=== PATIENT | male | born 1935 | race Caucasian/White ===

== ENCOUNTER 2017-11-25 16:24 | Inpatient (IN) | payer MEDICARE, BC, OTHER ==
[2017-11-25] MEDS ORDERED: SODIUM CHLORIDE 0.9% 1,000 ML IV STA (16:52)
--- NOTE | 2017-11-25 17:09 | ED ---
Chest Pain HPI - General Chief Complaint: Chest Pain Stated Complaint: ARRYTHMIA, YOGESH, COUGH Time Seen by Provider: 11/25/17 16:39 Source: patient Mode of arrival: ambulatory Limitations: no limitations - History of Present Illness Initial Comments: 82 years old male presented with the palpitation he said he noticed that his heart rate was 120 at one time then his heart rate dropped to around 60 he does have a history of congestive heart failure, diabetes and hypertension and he added he has neuropathy, please being treated for amyloidosis Maris of the PICC line and on his left upper extremity. He denies any headaches no neck stiffness no chest pain as such she has a palpitation he denies any shortness of breath he denies any pleuritic chest pain he said he said when he takes a very deep breath no abdominal pain. He has been coughing and been coughing up phlegm his cough has gotten worse over the last couple days no frequency urgency dysuria no symptoms of TIA or CVA - Related Data Home Medications Medication Instructions Recorded Confirmed Acetaminophen Tab [Tylenol Tab] 500 mg PO Q6H PRN 11/25/17 11/25/17 Albuterol Inhaler [Ventolin Hfa 2 puff INHALATION RT-QID PRN 11/25/17 11/25/17 Inhaler] Allopurinol [Zyloprim] 300 mg PO DAILY 11/25/17 11/25/17 Aspirin EC [Ecotrin Low Dose] 81 mg PO DAILY 11/25/17 11/25/17 Docusate [Colace] 100 mg PO DAILY PRN 11/25/17 11/25/17 Furosemide [Lasix] 40 mg PO DAILY 11/25/17 11/25/17 Gabapentin [Neurontin] 100 mg PO BID 11/25/17 11/25/17 Insulin Aspart Protam & Aspart See Protocol SQ AC-SUPPER 11/25/17 11/25/17 [NovoLOG MIX 70-30 Flexpen] Ipratropium-Albuterol Nebulize 3 ml INHALATION RT-TID 11/25/17 11/25/17 [Duoneb 0.5 mg-3 mg/3 ml Soln] Lisinopril [Zestril] 2.5 mg PO DAILY 11/25/17 11/25/17 Primacor 1mg/Ml 1 dose IV CONTINUOUS 11/25/17 11/25/17 Spironolactone [Aldactone] 12.5 mg PO DAILY 11/25/17 11/25/17 Tamsulosin HCl [Flomax] 0.4 mg PO DAILY 11/25/17 11/25/17 glipiZIDE [Glucotrol] 5 mg PO AC-BID 11/25/17 11/25/17 metFORMIN HCL [Glucophage] 500 mg PO BID 11/25/17 11/25/17 Allergies Allergy/AdvReac Type Severity Reaction Status Date / Time No Known Allergies Allergy Verified 11/25/17 17:19 Review of Systems ROS Statement: Those systems with pertinent positive or pertinent negative responses have been documented in the HPI. ROS Other: All systems not noted in ROS Statement are negative. 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 History of Any Multi-Drug Resistant Organisms: None Reported Additional Past Surgical History / Comment(s): bilateral foot operation, right elbow , bilateral hand surgeries, cervical infusion Past Psychological History: No Psychological Hx Reported Smoking Status: Former smoker Past Alcohol Use History: None Reported Past Drug Use History: None Reported General Exam - General Exam Comments Initial Comments: General: The patient is awake and alert, in no distress, and does not appear acutely ill. GCS is 15 Skin: Skin is warm and dry and no rashes or lesions are noted. Eye: Pupils are equal, round and reactive to light, extra-ocular movements are intact; there is normal conjunctiva bilaterally. Ears, nose, mouth and throat: There are moist mucous membranes and no oral lesions. Neck: The neck is supple, there is no tenderness or JVD. Cardiovascular: There is fluctuation of heart rate Respiratory: To auscultation bilateral, it was inconclusive every time he took a deep breath that triggered a cough though he is moving good air bilaterally Gastrointestinal: Soft, non-distended, non-tender abdomen without masses or organomegaly noted. There is no rebound or guarding present. Bowel sounds are unremarkable. Back: There is no tenderness to palpation in the midline. There is no obvious deformity. Musculoskeletal: Normal ROM, no tenderness, There is no pedal edema. There is no calf tenderness or swelling. No cords were appreciated. Neurological: CN II-XII intact, Cranial nerves III through XII are intact. There are no obvious motor or sensory deficits. Coordination appears grossly intact. Speech is normal. Psychiatric: Cooperative, appropriate mood & affect, normal judgment. 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 ] Respiratory 18 18 Rate Blood Pressure 118/62 157/94 O2 Sat by Pulse 99 98 Oximetry 11/25/17 18:20 Temperature Pulse Rate 98 Pulse Rate [ Log Chipper Operator ] Respiratory 16 Rate Blood Pressure 119/80 O2 Sat by Pulse 99 Oximetry EKG is normal sinus rhythm ventricular rate is 90 KS interval is 176 QRS duration is 80 QT/QTC 384/469 review of this EKG reveals low-voltage QRS complexes throughout poor progression of the R wave in V1 and V2 and V3 no ST elevation noticed noticed some flattening of the T-wave in the noticed reddening of the T-wave in V5 and V6 Critical Care Time Total Critical Care Time: 45 Critical Care Time: 32 years old male comes in with a palpitation, he noticed his heart rate was fluctuating from 66-120, we did see some fluctuation here as well, we did the cardiopulmonary investigations d-dimer is negative C CBC is unremarkable so his INR compressive metabolic panel is unremarkable creatinine is 1.30 to stop his elevated chest x-ray ruled out any congestive heart failure or any pneumonia he does have a history of congestive heart failure diabetes hypertension amyloidosis considering his multiple comorbidities with an admit him to Dr. Hunt, cardiology be consulted he be admitted as acute coronary syndrome Disposition Clinical Impression: Palpitation, Myocardial infarction Disposition: ADMITTED IP TO THIS HOSP Condition: Good Referrals: Walter Serrano MD [Primary Care Provider] - 1-2 days
[2017-11-25 17:21] LABS: Basophils % (A) 1 %; Eosinophils # (A) 0.4 k/uL (0-0.7); Eosinophils % (A) 5 %; HCT 36.6 % (39.0-53.0); HGB 12.2 gm/dL (13.0-17.5); Lymphocytes # (A) 1.5 k/uL (1.0-4.8); Lymphocytes % (A) 21 %; MCH 32.3 pg (25.0-35.0); MCHC 33.3 g/dL (31.0-37.0); MCV 96.9 fL (80.0-100.0); Mean Platelet Volume 7.5; Monocytes # (A) 0.6 k/uL (0-1.0); Monocytes % (A) 8 %; Neutrophils # (A) 4.5 k/uL (1.3-7.7); Neutrophils % (A) 63 %; Platelet Count 259 k/uL (150-450); RBC 3.78 m/uL (4.30-5.90); RDW 13.4 % (11.5-15.5); WBC 7.1 k/uL (3.8-10.6)
[2017-11-25 17:25] LABS: Albumin 3.9 g/dL (3.5-5.0); Calcium 9.4 mg/dL (8.4-10.2); Potassium 4.6 mmol/L (3.5-5.1); Total Protein 7.2 g/dL (6.3-8.2)
[2017-11-25 17:30] LABS: D-Dimer 0.47 mg/L FEU (<0.60); INR 1.1 (<1.2); Partial Thromboplastin Time 26.3 sec (22.0-30.0); Prothrombin Time 10.7 sec (9.0-12.0)
--- NOTE | 2017-11-25 17:44 | XR ---
EXAMINATION TYPE: XR chest 2V DATE OF EXAM: 11/25/2017 COMPARISON: NONE HISTORY: Chest pain, abnormal heart rate and cough TECHNIQUE: Frontal and lateral views of the chest are obtained on 3 images. FINDINGS: There is no focal air space opacity, pleural effusion, or pneumothorax seen. The cardiac silhouette size is within normal limits. The osseous structures are intact. Left-sided PICC line is in place. Distal tip courses to the level of the superior vena cava. There are overlying cardiac ovidio ds. IMPRESSION: No acute cardiopulmonary process.
[2017-11-25 17:49] LABS: Creatine Kinase MB 1.5 ng/mL (0.0-2.4)
[2017-11-25 18:10] LABS: Troponin I 0.131 ng/mL (0.000-0.034)
[2017-11-25] MEDS ORDERED: MORPHINE SULFATE 4 MG/ML SYRINGE IVP PRN (18:34)
[2017-11-25] MEDS ORDERED: NITROGLYCERIN SL TABS 0.4 MG TAB SUBLINGUAL PRN (18:34)
[2017-11-25] MEDS ORDERED: DOCUSATE 100 MG CAP PO PRN (18:42)
[2017-11-25] MEDS ORDERED: ACETAMINOPHEN TAB 500 MG TAB PO PRN (18:42)
[2017-11-25] MEDS ORDERED: ALBUTEROL NEBULIZED 2.5 MG/3 ML INHALATION PRN (18:42)
[2017-11-25] MEDS ORDERED: PRIMACOR IV SCH (18:45)
[2017-11-25] MEDS ORDERED: MILRINONE-D5W PMX 20 MG in DEXTROSE/WATER 1 100ML.BAG IV ONE (19:00)
[2017-11-25] MEDS: MILRINONE IV SCH (20:11)
[2017-11-25] MEDS: GABAPENTIN 100 MG CAP PO SCH (20:12)
[2017-11-25] MEDS: IPRATROPIUM-ALBUTEROL 3 ML NEB INHALATION SCH (20:18)
[2017-11-25 20:51] LABS: Glucose,Whole Blood 109 mg/dL (75-99)
[2017-11-25 20:55] VITALS: BMI 24.9
[2017-11-25 23:35] LABS: Creatine Kinase MB 1.5 ng/mL (0.0-2.4)
[2017-11-25 23:36] LABS: Troponin I 0.15 ng/mL (0.000-0.034)
[2017-11-26 06:21] LABS: Calcium 9.4 mg/dL (8.4-10.2); Potassium 4.5 mmol/L (3.5-5.1)
[2017-11-26 06:38] LABS: Creatine Kinase MB 1.4 ng/mL (0.0-2.4)
[2017-11-26 06:41] LABS: Glucose,Whole Blood 90 mg/dL (75-99)
[2017-11-26] MEDS: metFORMIN 500 MG TAB PO SCH ×2 (06:41→16:17)
[2017-11-26] MEDS: glipiZIDE 5 MG TAB PO SCH ×2 (06:41→16:17)
[2017-11-26 06:42] LABS: Troponin I 0.153 ng/mL (0.000-0.034)
[2017-11-26] MEDS ORDERED: LEVOFLOXACIN 500 MG TAB PO STA (08:24)
--- NOTE | 2017-11-26 08:33 | P.HPIM ---
History of Present Illness Chief complaint Cardiac palpitations and irregular heartbeat and tachycardia. History of present illness Patient presented to emergency room yesterday evening with complaints as stated above. Patient has restrictive amyloidosis cardiomyopathy and has been followed by cardiology here and at [facility] heart failure center. The patient has been receiving outpatient IV therapy with Milnirone. Apparently he had a previous PICC line in place. According to patient his dose was mildly decreased because of his weight loss recently. Yesterday he noted increasing and decreasing heart rate. Monitor here is apparently showing episodes of ventricular tachycardia according to staff. The patient denies any chest pain. He does have shortness of breath with exertion but this has overall improved with his chronic care. He also has chronic kidney disease stage III. He has had some cough with discolored phlegm production. There is a history of tobacco use disorder and COPD. Past medical history As stated above with amyloid infiltrative disease of the heart. Resulting in a chronic diastolic congestive heart failure treated with outpatient IV medication. Chronic kidney disease stage III Tobacco use disorder and COPD Hypertension Type 2 diabetes History of gout. Cindy osteoarthritis Diabetic neuropathy Benign prostatic hypertrophy Previous surgeries include bilateral feet operations, right elbow. Bilateral hand surgeries and cervical neck fusion No known ALLERGIES Home medications Acetaminophen 500 mg every 6 hours if needed for pain Albuterol 2 inhalations 4 times a day for shortness of breath Allopurinol 300 mg daily Aspirin 81 mg daily Colace 100 mg daily if needed Lasix 40 mg daily Insulin 70/30 roughly 10-15 units before breakfast and supper. Patient often adjusts his own insulin at home. Zestril 2.5 daily Aldactone 12.5 mg daily Flomax 0.4 daily Glucotrol 5 mg twice a day Metformin 500 mg twice a day Milnirone intravenously per [facility] congestive heart failure center, dosage dependent upon patient's weight and apparent renal function. Review of systems As mentioned in the history of present illness. No fever or chills. No headaches. No nausea or vomiting. No urinary or bowel symptoms. No unusual edema. No skin rashes. Family history of positive for coronary artery disease and diabetes Social history Patient has quit smoking. No history of any excessive alcohol intake. He lives locally with his in the area.. Vital signs reveal temperature 98.3 with a pulse now 90 7. had been up to 115 earlier. Respirations 18 and blood pressure 104/60. Head and neck exam unremarkable. Extraocular movements intact. Neck is supple. Lungs are generally clear although diminished. Heart tones are irregular but rate is controlled. No marked murmurs or rubs appreciated. Abdomen is soft and nontender. Rectal and scrotal exam deferred. No unusual edema. He is alert and oriented. Cranial nerves are intact. No focal weakness noted. Laboratory White count was 7.1 with a hemoglobin 12.2 and a platelet count of 259. INR was 1.1. D-dimer was 0.47. Electrolytes for the most part unremarkable although sodium is mildly low this morning at 136. BUN is 36 with a creatinine of 1.2 given him a GFR of 64. Blood sugar 97 this morning Troponin values have been mildly elevated from 0.131 up to 0.153. A chest x-ray showed no acute pulmonary process. Initial EKG reveals a sinus rhythm with low voltage and possible old septal infarct. Impressions 1. Cardiac arrhythmia with the palpitations while patient is on IV milnirone for his restrictive chronic diastolic congestive heart failure. 2. Exacerbation of COPD with bronchitis. 3. Chronic kidney disease stage III 4. Hypertension 5. Other past medical history as listed above. Impressions and plans At this time patient is being monitored. Cardiology consult to evaluate patient's arrhythmia and need for further intervention or treatment. Sputum to be sent for culture and Gram stain and antibiotic in the form of Levaquin added today. Further recommendations and treatment pending clinical response and results of above as discussed with patient and nursing staff this morning. 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 History of Any Multi-Drug Resistant Organisms: None Reported Additional Past Surgical History / Comment(s): bilateral foot operation, right elbow , bilateral hand surgeries, cervical fusion Past Psychological History: No Psychological Hx Reported Smoking Status: Former smoker Past Alcohol Use History: None Reported Past Drug Use History: None Reported Medications and Allergies Home Medications Medication Instructions Recorded Confirmed Type Acetaminophen Tab [Tylenol Tab] 500 mg PO Q6H PRN 11/25/17 11/25/17 History Albuterol Inhaler [Ventolin Hfa 2 puff INHALATION RT-QID PRN 11/25/17 11/25/17 History Inhaler] Allopurinol [Zyloprim] 300 mg PO DAILY 11/25/17 11/25/17 History Aspirin EC [Ecotrin Low Dose] 81 mg PO DAILY 11/25/17 11/25/17 History Docusate [Colace] 100 mg PO DAILY PRN 11/25/17 11/25/17 History Furosemide [Lasix] 40 mg PO DAILY 11/25/17 11/25/17 History Gabapentin [Neurontin] 100 mg PO BID 11/25/17 11/25/17 History Insulin Aspart Protam & Aspart See Protocol SQ AC-SUPPER 11/25/17 11/25/17 History [NovoLOG MIX 70-30 Flexpen] Ipratropium-Albuterol Nebulize 3 ml INHALATION RT-TID 11/25/17 11/25/17 History [Duoneb 0.5 mg-3 mg/3 ml Soln] Lisinopril [Zestril] 2.5 mg PO DAILY 11/25/17 11/25/17 History Primacor 1mg/Ml 1 dose IV CONTINUOUS 11/25/17 11/25/17 History Spironolactone [Aldactone] 12.5 mg PO DAILY 11/25/17 11/25/17 History Tamsulosin HCl [Flomax] 0.4 mg PO DAILY 11/25/17 11/25/17 History glipiZIDE [Glucotrol] 5 mg PO AC-BID 11/25/17 11/25/17 History metFORMIN HCL [Glucophage] 500 mg PO BID 11/25/17 11/25/17 History Allergies Allergy/AdvReac Type Severity Reaction Status Date / Time No Known Allergies Allergy Verified 11/25/17 17:19 Physical Exam Vitals: Vital Signs Temp Pulse Pulse Pulse Resp BP BP 11/26/17 03:00 98.3 F 97 18 104/60 11/25/17 23:30 97.8 F 115 H 18 107/63 11/25/17 20:45 97.7 F 94 18 112/71 11/25/17 20:25 112 H 11/25/17 20:18 112 H 11/25/17 19:30 94 18 11/25/17 18:20 98 16 119/80 11/25/17 17:15 116 H 18 157/94 11/25/17 17:13 111 H 11/25/17 16:28 98.0 F 100 18 118/62 Pulse Ox 11/26/17 03:00 98 03/08/18 23:30 96 11/25/17 20:45 98 11/25/17 20:25 11/25/17 20:18 11/25/17 19:30 11/25/17 18:20 99 11/25/17 17:15 98 11/25/17 17:13 11/25/17 16:28 99 Intake and Output 11/25/17 11/26/17 11/26/17 22:59 06:59 14:59 Intake Total 615 350 Output Total 275 275 Balance 340 75 Intake: Intake, IV Titration 75 350 Amount Sodium Chloride 0.9% 1, 75 350 000 ml @ 75 mls/hr IV . [id number] STA Rx#:[id number] Oral 540 Output: Urine 275 275 Other: Voiding Method Toilet Toilet Urinal Urinal Weight 81.102 kg 76.1 kg Results CBC & Chem 7: 11/25/17 17:06 11/26/17 05:18 Labs: Abnormal Lab Results - Last 24 Hours (Table) 11/25/17 11/25/17 11/25/17 Range/Units 17:06 17:06 17:06 RBC 3.78 L (4.30-5.90) m/uL Hgb 12.2 L (13.0-17.5) gm/dL Hct 36.6 L (39.0-53.0) % Sodium (137-145) mmol/L BUN 39 H (9-20) mg/dL Creatinine 1.30 H (0.66-1.25) mg/dL Glucose 119 H (74-99) mg/dL POC Glucose (mg/dL) (75-99) mg/dL Alkaline Phosphatase 135 H (38-126) U/L Troponin I 0.131 H* (0.000-0.034) ng/mL 11/25/17 11/25/17 11/26/17 Range/Units 20:47 22:34 05:18 RBC (4.30-5.90) m/uL Hgb (13.0-17.5) gm/dL Hct (39.0-53.0) % Sodium (137-145) mmol/L BUN (9-20) mg/dL Creatinine (0.66-1.25) mg/dL Glucose (74-99) mg/dL POC Glucose (mg/dL) 109 H (75-99) mg/dL Alkaline Phosphatase (38-126) U/L Troponin I 0.150 H* 0.153 H* (0.000-0.034) ng/mL 11/26/17 Range/Units 05:18 RBC (4.30-5.90) m/uL Hgb (13.0-17.5) gm/dL Hct (39.0-53.0) % Sodium 136 L (137-145) mmol/L BUN 36 H (9-20) mg/dL Creatinine (0.66-1.25) mg/dL Glucose (74-99) mg/dL POC Glucose (mg/dL) (75-99) mg/dL Alkaline Phosphatase (38-126) U/L Troponin I (0.000-0.034) ng/mL Thrombosis Risk Factor Assmnt - Choose All That Apply Any of the Below Risk Factors Present?: Yes Each Factor Represents 1 point: Abnormal pulmonary function (COPD) Other Risk Factors: Yes Each Risk Factor Represents 3 Points: Age 75 years or older Other congenital or acquired thrombophilia - If yes, enter type in comment: No Thrombosis Risk Factor Assessment Total Risk Factor Score: 4 Thrombosis Risk Factor Assessment Level: Moderate Risk
[2017-11-26] MEDS: IPRATROPIUM-ALBUTEROL 3 ML NEB INHALATION SCH ×3 (09:10→20:54)
[2017-11-26] MEDS ORDERED: DEXTROSE 5% IN WATER 100 ML with AMIODARONE 150 MG IV ONE (09:46)
[2017-11-26] MEDS: LISINOPRIL 2.5 MG TAB PO SCH (09:48)
[2017-11-26] MEDS: ALLOPURINOL 300 MG TAB PO SCH (09:48)
[2017-11-26] MEDS: FUROSEMIDE 40 MG TAB PO SCH (09:48)
[2017-11-26] MEDS: ASPIRIN 325 MG TAB PO SCH (09:49)
[2017-11-26] MEDS: GABAPENTIN 100 MG CAP PO SCH ×2 (09:49→21:30)
[2017-11-26] MEDS: TAMSULOSIN 0.4 MG CAP.ER.24H PO SCH (09:49)
[2017-11-26] MEDS: SPIRONOLACTONE 25 MG TAB PO SCH (09:49)
--- NOTE | 2017-11-26 10:17 | CONS ---
CONSULTATION Blair Jacob is a mutual patient of Dr. Serrano and myself, who has a history of cardiac amyloidosis, end-stage, severe restrictive cardiomyopathy on home milrinone therapy that was prescribed by the Heart failure group Dr. Jessica Silveira at [facility]. Yesterday he was complaining of recurrent palpitations and came to the emergency room. Telemetry shows episodes of nonsustained ventricular tachycardia. Given his underlying cardiomyopathy and the fact that he is on Milrinone, this is an expected phenomena. PAST MEDICAL HISTORY: Amyloidosis with restrictive cardiomyopathy and severe heart failure on home Milrinone therapy, stage 3 chronic kidney disease. History of tobacco use, hypertension, type 2 diabetes, recent stress test which did not show any evidence for ischemia. Past surgeries include orthopedic surgeries. Medication list was reviewed and is documented in the chart. From a heart failure standpoint he showed significant improvement in his quality of life on Milrinone. REVIEW OF SYSTEMS: No fever, chills, or rigors. No cough or expectoration. No nausea, vomiting, diarrhea, hematuria, dysuria. No strokes or seizures. No skin lesions or musculoskeletal complaints. SOCIAL HISTORY: He was a smoker in the past. EXAMINATION: On examination his vitals are stable. He is afebrile 97.8 degree Fahrenheit, pulse rate in the 60s and 70s, blood pressure 107/63 mmHg. Neck examination is normal. No JVD. No thyromegaly. No carotid bruits. HEART: Sounds S1, S2 soft. Breath sounds are clear. No rhonchi, no crackles. He is lying flat in bed. LABS: Reviewed. Hemoglobin is 12.2. Electrolytes are normal. BUN 36, creatinine 1.2. Troponins are borderline 0.1, 0.1 and 0.1. LDL is 55. IMPRESSION: 1. End-stage cardiomyopathy, cardiac amyloidosis, restrictive cardiomyopathy. 2. End-stage heart failure. 3. Being treated with IV Milrinone as home therapy as a palliative measure. This has resulted in significant improvement in his symptoms and quality of life. However, this drug increases the risk of ventricular arrhythmias, which is known expected and anticipated. 4. Nonsustained ventricular tachycardia. SUGGEST: Amiodarone IV for 1 day and then switch to 400 mg p.o. daily for 1 month and then reduce to 200 mg daily for 1 month and then reduce further to 100 mg p.o. daily. MMODL / IJN: [id number] /
[2017-11-26] MEDS: AMIODARONE 450 MG in DEXTROSE 5% IN WATER 250 ML IV SCH ×4 (11:19→17:28)
[2017-11-26 12:12] LABS: Glucose,Whole Blood 304 mg/dL (75-99)
[2017-11-26 16:30] LABS: Glucose,Whole Blood 194 mg/dL (75-99)
[2017-11-26] MEDS: INSULIN ASPART 100 UNIT/ML 1 ML 10 ML VIAL SQ SCH ×2 (17:19→21:30)
[2017-11-26 20:52] LABS: Glucose,Whole Blood 166 mg/dL (75-99)
[2017-11-26] MEDS: MILRINONE IV SCH (21:31)
[2017-11-26] MEDS ORDERED: MENTHOL (NICE) LOZENGE MUCOUS MEM PRN (23:39)
[2017-11-27 02:23] LABS: Hemoglobin A1C 6.7 % (4.0-6.0)
[2017-11-27] MEDS: AMIODARONE 450 MG in DEXTROSE 5% IN WATER 250 ML IV SCH ×4 (05:44→09:04)
[2017-11-27 05:57] LABS: Glucose,Whole Blood 149 mg/dL (75-99)
[2017-11-27] MEDS: INSULIN ASPART 100 UNIT/ML 1 ML 10 ML VIAL SQ SCH ×2 (06:56→11:57)
[2017-11-27] MEDS: glipiZIDE 5 MG TAB PO SCH (06:56)
[2017-11-27] MEDS: metFORMIN 500 MG TAB PO SCH (06:56)
[2017-11-27] MEDS: IPRATROPIUM-ALBUTEROL 3 ML NEB INHALATION SCH (08:46)
[2017-11-27] MEDS ORDERED: AMIODARONE 200 MG TAB PO SCH (09:00)
[2017-11-27 09:04] VITALS: BP 101/64; PULSE 84; RESP 17; TEMP 97.4
[2017-11-27] MEDS: FUROSEMIDE 40 MG TAB PO SCH (09:05)
[2017-11-27] MEDS: SPIRONOLACTONE 25 MG TAB PO SCH (09:06)
[2017-11-27] MEDS: GABAPENTIN 100 MG CAP PO SCH (09:06)
[2017-11-27] MEDS: ASPIRIN 325 MG TAB PO SCH (09:06)
[2017-11-27] MEDS: LISINOPRIL 2.5 MG TAB PO SCH (09:06)
[2017-11-27] MEDS: ALLOPURINOL 300 MG TAB PO SCH (09:06)
[2017-11-27] MEDS: TAMSULOSIN 0.4 MG CAP.ER.24H PO SCH (09:06)
--- NOTE | 2017-11-27 09:45 | P.DS ---
Providers Date of admission: 11/25/17 18:34 Attending physician: Walter Serrano Consults: 11/25/17 18:34 Consult Physician Urgent Consulting Provider: Taylor Nair Consult Reason/Comments: Elevated troponin , chest pain Do you want consulting provider notified?: Yes Primary care physician: Walter Serrano The patient is a 82-year-old gentleman who has restrictive cardiomyopathy secondary to amyloidosis and is treated with outpatient IV Milnirrone through [facility] congestive heart failure clinic. Patient noticed irregular heart rates with rates at home being very tachycardic. Patient had some overall weakness and shortness of breath. He presented to the emergency room where workup revealed elevated troponin levels. Also episodes of ventricular tachycardia was noted. Patient was placed on a monitor bed and cardiology consult obtained. Laboratory values reveal white count of 7.1 and hemoglobin 12.2 and a platelet count 259. D-dimer was 0.47. The patient had a mild hyponatremia 136. Creatinine was 1.2. His initial GFR was slightly less than 60 given him great 3 renal failure. Patient did have some mild cough and phlegm production. EKG revealed a slightly regular sinus rhythm. But patient did have episodes of nonsustained ventricular tachycardia on his monitor pattern. The patient was placed on IV amiodarone and switched to oral of 200 mg daily per cardiology. Plans are to discharge home today. Patient will resume his home medications Metformin 500 mg twice a day Glucotrol 5 mg daily Flomax 0.4 mg daily Aldactone 12.5 daily Continue with his IV Primacor per [facility] cardiology Zestril 2.5 daily His respiratory treatments with DuoNeb 4 times a day and when necessary The NovoLog 70-30 approximately 10-15 units daily Neurontin 100 mg 2-3 times a day Lasix 40 mg daily Colace 100 mg daily as needed Aspirin 81 mg daily Allopurinol 3 mg daily Fenlon inhaler 2 puffs 4 times a day as needed for shortness of breath and wheezing Acetaminophen 500 mg every 6 hours when necessary Amiodarone 400 mg daily with taper as ordered by cardiology, 400 mg daily for one month then 200 mg daily for one month then 100 mg daily. Discharge diagnoses 1. Repeat episodes of ventricular tachycardia likely induced by IV Primacor and associated with his underlying amyloid restrictive cardiomyopathy 2. Exacerbation of COPD with bronchitis likely viral in nature. We'll hold antibiotics unless recurrent and worsening symptoms. 3. Chronic kidney disease stage III 4. Hypertension 5. COPD and history of previous tobacco use disorder 6. Type 2 diabetes 7. Diffuse osteoarthritis 8. Diabetic neuropathy 9. BPH 10. Chronic diastolic congestive heart failure. 11. Elevated troponin levels likely related to the episodes of tachycardia and congestive heart failure and not related to ischemic heart disease. Low salt diet along with his diabetic diet to be continued. Activities as tolerated. Follow-up with cardiology Associates and [facility] congestive heart failure clinic. Follow-up with myself over the next 7-10 days or call if any questions concerns or problems. Patient Condition at Discharge: Good Plan - Discharge Summary Discharge Rx Participant: No New Discharge Prescriptions: No Action Acetaminophen Tab [Tylenol Tab] 500 mg PO Q6H PRN PRN Reason: Pain Albuterol Inhaler [Ventolin Hfa Inhaler] 2 puff INHALATION RT-QID PRN PRN Reason: Shortness Of Breath Allopurinol [Zyloprim] 300 mg PO DAILY Aspirin EC [Ecotrin Low Dose] 81 mg PO DAILY Docusate [Colace] 100 mg PO DAILY PRN PRN Reason: Constipation Furosemide [Lasix] 40 mg PO DAILY Gabapentin [Neurontin] 100 mg PO BID glipiZIDE [Glucotrol] 5 mg PO AC-BID Insulin Aspart Protam & Aspart [NovoLOG MIX 70-30 Flexpen] See Protocol SQ AC -SUPPER Ipratropium-Albuterol Nebulize [Duoneb 0.5 mg-3 mg/3 ml Soln] 3 ml INHALATION RT-TID Lisinopril [Zestril] 2.5 mg PO DAILY metFORMIN HCL [Glucophage] 500 mg PO BID Primacor 1mg/Ml 1 dose IV CONTINUOUS Spironolactone [Aldactone] 12.5 mg PO DAILY Tamsulosin HCl [Flomax] 0.4 mg PO DAILY Discharge Medication List Acetaminophen Tab [Tylenol Tab] 500 mg PO Q6H PRN 11/25/17 [History] Albuterol Inhaler [Ventolin Hfa Inhaler] 2 puff INHALATION RT-QID PRN 11/25/17 [ History] Allopurinol [Zyloprim] 300 mg PO DAILY 11/25/17 [History] Aspirin EC [Ecotrin Low Dose] 81 mg PO DAILY 11/25/17 [History] Docusate [Colace] 100 mg PO DAILY PRN 11/25/17 [History] Furosemide [Lasix] 40 mg PO DAILY 11/25/17 [History] Gabapentin [Neurontin] 100 mg PO BID 11/25/17 [History] Insulin Aspart Protam & Aspart [NovoLOG MIX 70-30 Flexpen] See Protocol SQ AC- SUPPER 11/25/17 [History] Ipratropium-Albuterol Nebulize [Duoneb 0.5 mg-3 mg/3 ml Soln] 3 ml INHALATION RT -TID 11/25/17 [History] Lisinopril [Zestril] 2.5 mg PO DAILY 11/25/17 [History] Primacor 1mg/Ml 1 dose IV CONTINUOUS 11/25/17 [History] Spironolactone [Aldactone] 12.5 mg PO DAILY 11/25/17 [History] Tamsulosin HCl [Flomax] 0.4 mg PO DAILY 11/25/17 [History] glipiZIDE [Glucotrol] 5 mg PO AC-BID 11/25/17 [History] metFORMIN HCL [Glucophage] 500 mg PO BID 11/25/17 [History] Follow up Appointment(s)/Referral(s): uJaquin Arredondo MD [STAFF PHYSICIAN] - 3 Weeks Walter Serrano MD [Primary Care Provider] - 1-2 days
[2017-11-27 11:28] LABS: Glucose,Whole Blood 140 mg/dL (75-99)
== END 2017-11-27 13:17 | disposition home or self-care (01) | DRG 309 ==
LOC: EC 16:24 → 6SEL 18:34
PROVIDERS: ADMIT Internal Medicine; ATTEND Internal Medicine
DX: I47.2 Ventricular tachycardia (principal); E85.4 Organ-limited amyloidosis; E11.22 Type 2 diabetes mellitus with diabetic chronic kidney disease; E11.40 Type 2 diabetes mellitus with diabetic neuropathy, unspecified; I43 Cardiomyopathy in diseases classified elsewhere; I13.0 Hypertensive heart and chronic kidney disease with heart failure and stage 1 through stage 4 chronic kidney disease, or unspecified chronic kidney disease; I50.32 Chronic diastolic (congestive) heart failure; J44.0 Chronic obstructive pulmonary disease with (acute) lower respiratory infection; I50.84 End stage heart failure; J20.8 Acute bronchitis due to other specified organisms; M19.91 Primary osteoarthritis, unspecified site; N40.0 Benign prostatic hyperplasia without lower urinary tract symptoms; M10.9 Gout, unspecified; N18.3 Chronic kidney disease, stage 3 (moderate); Z79.82 Long term (current) use of aspirin; Z79.4 Long term (current) use of insulin; Z79.899 Other long term (current) drug therapy; Z87.891 Personal history of nicotine dependence; Z98.1 Arthrodesis status
CPT/HCPCS: 36415; 71046; 80048; 80053; 80061; 82550; 82553; 83036; 83735; 84484; 85025; 85379; 85610; 85730; 87070; 87205; 93005; 94640; 94760; 96360; 96361; 99291

== ENCOUNTER 2017-12-02 10:57 | Emergency (ER) | payer MEDICARE, BC, OTHER ==
[2017-12-02 11:02] VITALS: RESP 18
--- NOTE | 2017-12-02 11:43 | ED ---
General Adult HPI - General Chief complaint: Extremity Problem,Nontraumatic Stated complaint: Ankle pain, Pos Blood clot Time Seen by Provider: 12/02/17 11:00 Source: family, RN notes reviewed Mode of arrival: wheelchair Limitations: no limitations - History of Present Illness Initial comments: This is a 82-year-old male who comes in with complaint of a right medial ankle pain. Patient states started about a week ago and at one point it was extremely sharp just below the medial malleolus. Patient states since then it' s not quite as bad but is constant and makes it difficult for him to sleep. Patient denies any injury patient denies any swelling patient denies any color change. Patient denies any fever chills. Patient denies any calf pain patient denies any swelling to the lower extremity. - Related Data Home Medications Medication Instructions Recorded Confirmed Acetaminophen Tab [Tylenol Tab] 500 mg PO Q6H PRN 11/25/17 12/02/17 Albuterol Inhaler [Ventolin Hfa 2 puff INHALATION RT-QID PRN 11/25/17 12/02/17 Inhaler] Allopurinol [Zyloprim] 300 mg PO DAILY 11/25/17 12/02/17 Aspirin EC [Ecotrin Low Dose] 81 mg PO DAILY 11/25/17 12/02/17 Docusate [Colace] 100 mg PO DAILY PRN 11/25/17 12/02/17 Furosemide [Lasix] 40 mg PO DAILY 11/25/17 12/02/17 Gabapentin [Neurontin] 100 mg PO BID 11/25/17 12/02/17 Insulin Aspart Protam & Aspart See Protocol SQ AC-SUPPER 11/25/17 12/02/17 [NovoLOG MIX 70-30 Flexpen] Ipratropium-Albuterol Nebulize 3 ml INHALATION RT-TID 11/25/17 12/02/17 [Duoneb 0.5 mg-3 mg/3 ml Soln] Lisinopril [Zestril] 2.5 mg PO DAILY 11/25/17 12/02/17 Primacor 1mg/Ml 1 dose IV CONTINUOUS 11/25/17 12/02/17 Spironolactone [Aldactone] 12.5 mg PO DAILY 11/25/17 12/02/17 Tamsulosin HCl [Flomax] 0.4 mg PO DAILY 11/25/17 12/02/17 glipiZIDE [Glucotrol] 5 mg PO AC-BID 11/25/17 12/02/17 metFORMIN HCL [Glucophage] 500 mg PO BID 11/25/17 12/02/17 Allergies Allergy/AdvReac Type Severity Reaction Status Date / Time No Known Allergies Allergy Verified 12/02/17 11:58 Review of Systems ROS Statement: Those systems with pertinent positive or pertinent negative responses have been documented in the HPI. ROS Other: All systems not noted in ROS Statement are negative. 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 Patient is in mild distress. EYES Patient's pupils are equal and round. Extraocular motion is intact SKIN Unremarkable NEURO The patient is alert and oriented 3 PYSCH Patient has normal interpersonal interactions. MUSCULOSKELETAL Just inferior to the medial malleolus on the right is tender to palpation there is no swelling there is no redness. Limitations: no limitations Course Vital Signs 12/02/17 10:58 Temperature 97.4 F L Pulse Rate 91 Respiratory 18 Rate Blood Pressure 114/60 O2 Sat by Pulse 97 Oximetry Medical Decision Making - Lab Data Result diagrams: 12/02/17 11:50 12/02/17 11:50 Lab Results 12/02/17 12/02/17 Range/Units 11:50 11:50 WBC 7.3 (3.8-10.6) k/uL RBC 3.58 L (4.30-5.90) m/uL Hgb 11.7 L (13.0-17.5) gm/dL Hct 34.6 L (39.0-53.0) % MCV 96.6 (80.0-100.0) fL MCH 32.8 (25.0-35.0) pg MCHC 33.9 (31.0-37.0) g/dL RDW 13.4 (11.5-15.5) % Plt Count 228 (150-450) k/uL Neutrophils % 72 % Lymphocytes % 17 % Monocytes % 7 % Eosinophils % 3 % Basophils % 1 % Neutrophils # 5.2 (1.3-7.7) k/uL Lymphocytes # 1.2 (1.0-4.8) k/uL Monocytes # 0.5 (0-1.0) k/uL Eosinophils # 0.2 (0-0.7) k/uL Basophils # 0.0 (0-0.2) k/uL ESR Cancelled Sodium 134 L (137-145) mmol/L Potassium 4.5 (3.5-5.1) mmol/L Chloride 96 L (98-107) mmol/L Carbon Dioxide 26 (22-30) mmol/L Anion Gap 12 mmol/L BUN 47 H (9-20) mg/dL Creatinine 1.48 H (0.66-1.25) mg/dL Est GFR (CKD-EPI)AfAm 50 (>60 ml/min/1.73 sqM) Est GFR (CKD-EPI)NonAf 43 (>60 ml/min/1.73 sqM) Glucose 115 H (74-99) mg/dL Calcium 9.8 (8.4-10.2) mg/dL Total Bilirubin 0.9 (0.2-1.3) mg/dL AST 23 (17-59) U/L ALT 20 L (21-72) U/L Alkaline Phosphatase 142 H (38-126) U/L Total Protein 7.3 (6.3-8.2) g/dL Albumin 3.8 (3.5-5.0) g/dL Disposition Clinical Impression: Ankle pain, right Disposition: HOME SELF-CARE Condition: Good Instructions: Ankle Strain (ED) Referrals: Walter Serrano MD [Primary Care Provider] - 1-2 days Time of Disposition: 13:55
--- NOTE | 2017-12-02 12:13 | XR ---
EXAMINATION TYPE: XR ankle complete RT DATE OF EXAM: 12/02/2017 COMPARISON: NONE HISTORY: Pain FINDINGS: Three views of the ankle demonstrate the ankle mortise to be intact and symmetric. The joint spaces are preserved. The osseous structures are intact. Within the interosseous membrane there is a calci fication overlying this region. Vascular calcifications are noted. IMPRESSION: 1. No definite acute fracture or dislocation, if symptoms persist follow-up study in 7 to 10 days wou ld be suggested.
--- NOTE | 2017-12-02 12:15 | XR ---
EXAMINATION TYPE: XR chest 2V DATE OF EXAM: 12/02/2017 COMPARISON: 11/25/2017 TECHNIQUE: PA and lateral views submitted. HISTORY: Weakness FINDINGS: The lungs are clear and there is no pneumothorax, pleural effusion, or focal pneumonia. Hypertrophi c and degenerative change of the spine. Postsurgical change overlying cervical spine. PICC line noted . Atherosclerotic change aorta. IMPRESSION: 1. No acute process.
[2017-12-02 12:38] LABS: Basophils % (A) 1 %; Eosinophils # (A) 0.2 k/uL (0-0.7); Eosinophils % (A) 3 %; HCT 34.6 % (39.0-53.0); HGB 11.7 gm/dL (13.0-17.5); Lymphocytes # (A) 1.2 k/uL (1.0-4.8); Lymphocytes % (A) 17 %; MCH 32.8 pg (25.0-35.0); MCHC 33.9 g/dL (31.0-37.0); MCV 96.6 fL (80.0-100.0); Mean Platelet Volume 7.3; Monocytes # (A) 0.5 k/uL (0-1.0); Monocytes % (A) 7 %; Neutrophils # (A) 5.2 k/uL (1.3-7.7); Neutrophils % (A) 72 %; Platelet Count 228 k/uL (150-450); RBC 3.58 m/uL (4.30-5.90); RDW 13.4 % (11.5-15.5); WBC 7.3 k/uL (3.8-10.6)
[2017-12-02 12:45] LABS: Albumin 3.8 g/dL (3.5-5.0); Calcium 9.8 mg/dL (8.4-10.2); Total Bilirubin 0.9 mg/dL (0.2-1.3); Total Protein 7.3 g/dL (6.3-8.2)
[2017-12-02 12:52] LABS: Potassium 4.5 mmol/L (3.5-5.1)
[2017-12-02 14:06] VITALS: BP 115/53; PULSE 84; TEMP 98.5
== END 2017-12-02 14:41 | disposition home or self-care (01) ==
LOC: EC 10:57
DX: M25.571 Pain in right ankle and joints of right foot (principal); I11.0 Hypertensive heart disease with heart failure; I50.9 Heart failure, unspecified; E11.9 Type 2 diabetes mellitus without complications; J44.9 Chronic obstructive pulmonary disease, unspecified; M19.90 Unspecified osteoarthritis, unspecified site; Z87.891 Personal history of nicotine dependence; Z79.4 Long term (current) use of insulin; Z79.82 Long term (current) use of aspirin; Z79.899 Other long term (current) drug therapy
CPT/HCPCS: 36415; 71046; 80053; 85025; 85652; 99283

== ENCOUNTER 2017-12-23 10:36 | Emergency (ER) | payer MEDICARE, BC, OTHER ==
[2017-12-23 10:53] VITALS: TEMP 97.3
--- NOTE | 2017-12-23 11:12 | ED ---
General Adult HPI - General Chief complaint: Dizziness Stated complaint: Low Blood Pressure Time Seen by Provider: 12/23/17 11:02 Source: patient, RN notes reviewed, old records reviewed Mode of arrival: ambulatory Limitations: no limitations - History of Present Illness Initial comments: 82-year-old male presenting with lightheadedness and near syncope. His home care nurse checked his blood pressure found to be in the 70s systolic. Patient does have congestive heart failure, he is currently on a milrinone infusion through left upper extremity PICC line. Patient was recently discharged from [facility], he follows with their heart failure team. Patient is uncertain of his baseline ejection fraction. Denies any chest pain. States he does have some exertional dyspnea. He is also had some generalized weakness. He believes his milrinone infusion dose was adjusted but is uncertain if there was increased or decreased when he left the hospital. - Related Data Home Medications Medication Instructions Recorded Confirmed Acetaminophen Tab [Tylenol Tab] 500 mg PO Q6H PRN 11/25/17 12/23/17 Albuterol Inhaler [Ventolin Hfa 2 puff INHALATION RT-QID PRN 11/25/17 12/23/17 Inhaler] Allopurinol [Zyloprim] 300 mg PO DAILY 11/25/17 12/23/17 Aspirin EC [Ecotrin Low Dose] 81 mg PO DAILY 11/25/17 12/23/17 Docusate [Colace] 100 mg PO DAILY PRN 11/25/17 12/23/17 Gabapentin [Neurontin] 100 mg PO BID 11/25/17 12/23/17 Insulin Aspart Protam & Aspart See Protocol SQ AC-SUPPER 11/25/17 12/23/17 [NovoLOG MIX 70-30 Flexpen] Ipratropium-Albuterol Nebulize 3 ml INHALATION RT-TID 11/25/17 12/23/17 [Duoneb 0.5 mg-3 mg/3 ml Soln] Lisinopril [Zestril] 2.5 mg PO DAILY 11/25/17 12/23/17 Primacor 1mg/Ml 1 dose IV CONTINUOUS 11/25/17 12/23/17 Spironolactone [Aldactone] 12.5 mg PO DAILY 11/25/17 12/23/17 Tamsulosin HCl [Flomax] 0.4 mg PO BID 11/25/17 12/23/17 glipiZIDE [Glucotrol] 5 mg PO AC-BID 11/25/17 12/23/17 Amiodarone [Cordarone] 200 mg PO DAILY 12/23/17 12/23/17 Bumetanide [BUMEX] 2 mg PO DAILY 12/23/17 12/23/17 Allergies Allergy/AdvReac Type Severity Reaction Status Date / Time No Known Allergies Allergy Verified 12/23/17 11:44 Review of Systems ROS Statement: Those systems with pertinent positive or pertinent negative responses have been documented in the HPI. ROS Other: All systems not noted in ROS Statement are negative. 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 History of Any Multi-Drug Resistant Organisms: None Reported Past Surgical History: Back Surgery Additional Past Surgical History / Comment(s): bilateral foot operation, right elbow , bilateral hand surgeries, cervical fusion rotator cuff Past Psychological History: No Psychological Hx Reported Smoking Status: Former smoker Past Alcohol Use History: None Reported Past Drug Use History: None Reported General Exam Limitations: no limitations General appearance: alert, in no apparent distress Head exam: Present: atraumatic, normocephalic Eye exam: Present: normal appearance, PERRL ENT exam: Present: normal exam, normal oropharynx Neck exam: Present: normal inspection. Absent: tenderness, meningismus Respiratory exam: Present: normal lung sounds bilaterally. Absent: respiratory distress, wheezes, rales Cardiovascular Exam: Present: regular rate, normal rhythm GI/Abdominal exam: Present: soft. Absent: distended, tenderness Extremities exam: Present: normal inspection, normal capillary refill. Absent: pedal edema Neurological exam: Present: alert, oriented X3, CN II-XII intact. Absent: motor sensory deficit Psychiatric exam: Present: normal affect, normal mood Skin exam: Present: warm, dry, intact. Absent: cyanosis, diaphoretic Course Vital Signs 12/23/17 12/23/17 10:48 12:21 Temperature 97.3 F L Pulse Rate 84 74 Respiratory 18 17 Rate Blood Pressure 109/50 88/52 O2 Sat by Pulse 99 100 Oximetry EKG Findings - EKG Comments: EKG Findings:: EKG, normal sinus rhythm, low voltage, ventricular rate 82, VA interval 180, QRS duration 88, QTC 436, no change compared to EKG obtained 1 month ago. Medical Decision Making - Medical Decision Making 82-year-old presenting with hypotension, lightheadedness, exertional dyspnea. Patient is on milrinone infusion. Laboratory studies reveal normal white blood cell count, hemoglobin 10.6, creatinine is elevated 3.2, sodium 129. Troponin is elevated at 0.42, as well as BNP 5500. EKG normal sinus rhythm with low voltage QRS. Patient is a patient of [facility] heart failure service. Case is discussed with his physician Dr. Meraz, patient will be transferred to [facility] for further evaluation and treatment. - Lab Data Result diagrams: 12/23/17 11:13 12/23/17 11:13 Lab Results 12/23/17 12/23/17 12/23/17 Range/Units 11:13 11:13 11:13 WBC 6.3 (3.8-10.6) k/uL RBC 3.32 L (4.30-5.90) m/uL Hgb 10.6 L (13.0-17.5) gm/dL Hct 31.8 L (39.0-53.0) % MCV 95.9 (80.0-100.0) fL MCH 32.1 (25.0-35.0) pg MCHC 33.4 (31.0-37.0) g/dL RDW 13.4 (11.5-15.5) % Plt Count 219 (150-450) k/uL Neutrophils % 79 % Lymphocytes % 10 % Monocytes % 6 % Eosinophils % 3 % Basophils % 0 % Neutrophils # 5.0 (1.3-7.7) k/uL Lymphocytes # 0.6 L (1.0-4.8) k/uL Monocytes # 0.4 (0-1.0) k/uL Eosinophils # 0.2 (0-0.7) k/uL Basophils # 0.0 (0-0.2) k/uL PT (9.0-12.0) sec INR (<1.2) APTT (22.0-30.0) sec Sodium 129 L (137-145) mmol/L Potassium 4.5 (3.5-5.1) mmol/L Chloride 91 L (98-107) mmol/L Carbon Dioxide 24 (22-30) mmol/L Anion Gap 14 mmol/L BUN 65 H (9-20) mg/dL Creatinine 3.20 H (0.66-1.25) mg/dL Est GFR (CKD-EPI)AfAm 20 (>60 ml/min/1.73 sqM) Est GFR (CKD-EPI)NonAf 17 (>60 ml/min/1.73 sqM) Glucose 231 H (74-99) mg/dL Plasma Lactic Acid Santana (0.7-2.0) mmol/L Calcium 9.4 (8.4-10.2) mg/dL Magnesium 2.0 (1.6-2.3) mg/dL Total Bilirubin 0.8 (0.2-1.3) mg/dL AST 38 (17-59) U/L ALT 40 (21-72) U/L Alkaline Phosphatase 126 (38-126) U/L Total Creatine Kinase 64 (55-170) U/L CK-MB (CK-2) 1.2 (0.0-2.4) ng/mL CK-MB (CK-2) Rel Index 1.9 Troponin I 0.425 H* (0.000-0.034) ng/mL NT-Pro-B Natriuret Pep pg/mL Total Protein 6.8 (6.3-8.2) g/dL Albumin 3.5 (3.5-5.0) g/dL 12/23/17 12/23/17 12/23/17 Range/Units 11:13 11:13 11:13 WBC (3.8-10.6) k/uL RBC (4.30-5.90) m/uL Hgb (13.0-17.5) gm/dL Hct (39.0-53.0) % MCV (80.0-100.0) fL MCH (25.0-35.0) pg MCHC (31.0-37.0) g/dL RDW (11.5-15.5) % Plt Count (150-450) k/uL Neutrophils % % Lymphocytes % % Monocytes % % Eosinophils % % Basophils % % Neutrophils # (1.3-7.7) k/uL Lymphocytes # (1.0-4.8) k/uL Monocytes # (0-1.0) k/uL Eosinophils # (0-0.7) k/uL Basophils # (0-0.2) k/uL PT 10.6 (9.0-12.0) sec INR 1.1 (<1.2) APTT 26.8 (22.0-30.0) sec Sodium (137-145) mmol/L Potassium (3.5-5.1) mmol/L Chloride (98-107) mmol/L Carbon Dioxide (22-30) mmol/L Anion Gap mmol/L BUN (9-20) mg/dL Creatinine (0.66-1.25) mg/dL Est GFR (CKD-EPI)AfAm (>60 ml/min/1.73 sqM) Est GFR (CKD-EPI)NonAf (>60 ml/min/1.73 sqM) Glucose (74-99) mg/dL Plasma Lactic Acid Santana 1.0 (0.7-2.0) mmol/L Calcium (8.4-10.2) mg/dL Magnesium (1.6-2.3) mg/dL Total Bilirubin (0.2-1.3) mg/dL AST (17-59) U/L ALT (21-72) U/L Alkaline Phosphatase (38-126) U/L Total Creatine Kinase (55-170) U/L CK-MB (CK-2) (0.0-2.4) ng/mL CK-MB (CK-2) Rel Index Troponin I (0.000-0.034) ng/mL NT-Pro-B Natriuret Pep 5530 pg/mL Total Protein (6.3-8.2) g/dL Albumin (3.5-5.0) g/dL Critical Care Time Critical Care Time: Yes Total Critical Care Time: 35 Disposition Clinical Impression: Congestive heart failure, Hypotension Disposition: OTHER INSTITUTION NOT DEFINED Condition: Serious Referrals: Walter Serrano MD [Primary Care Provider] - 1-2 days Time of Disposition: 13:40 - Out of Hospital Transfer - Req. Specs Out of Hospital Transfer - Requested Specifics: Telemetry Unit (Past to [facility], accepting physician Dr. Meraz)
[2017-12-23 11:32] LABS: Basophils % (A) 0 %; Eosinophils # (A) 0.2 k/uL (0-0.7); Eosinophils % (A) 3 %; HCT 31.8 % (39.0-53.0); HGB 10.6 gm/dL (13.0-17.5); Lymphocytes # (A) 0.6 k/uL (1.0-4.8); Lymphocytes % (A) 10 %; MCH 32.1 pg (25.0-35.0); MCHC 33.4 g/dL (31.0-37.0); MCV 95.9 fL (80.0-100.0); Mean Platelet Volume 7.3; Monocytes # (A) 0.4 k/uL (0-1.0); Monocytes % (A) 6 %; Neutrophils % (A) 79 %; Platelet Count 219 k/uL (150-450); RBC 3.32 m/uL (4.30-5.90); RDW 13.4 % (11.5-15.5); WBC 6.3 k/uL (3.8-10.6)
--- NOTE | 2017-12-23 11:35 | XR ---
EXAMINATION TYPE: XR chest 2V DATE OF EXAM: 12/23/2017 COMPARISON: 12/02/2017 TECHNIQUE: PA and lateral views submitted. HISTORY: Shortness of breath FINDINGS: The lungs are clear and there is no pneumothorax, pleural effusion, or focal pneumonia. Left-sided PICC line noted. Hypertrophic change of the spine. Cardiomegaly noted. Atherosclerotic change aorta. There is hyperinflation. IMPRESSION: 1. Cardiomegaly. Correlate for COPD.
[2017-12-23 11:46] LABS: Albumin 3.5 g/dL (3.5-5.0); Calcium 9.4 mg/dL (8.4-10.2); Potassium 4.5 mmol/L (3.5-5.1); Total Bilirubin 0.8 mg/dL (0.2-1.3); Total Protein 6.8 g/dL (6.3-8.2)
[2017-12-23 12:04] LABS: INR 1.1 (<1.2); Partial Thromboplastin Time 26.8 sec (22.0-30.0); Prothrombin Time 10.6 sec (9.0-12.0)
[2017-12-23 12:41] LABS: Creatine Kinase MB 1.2 ng/mL (0.0-2.4)
[2017-12-23 12:43] LABS: Troponin I 0.425 ng/mL (0.000-0.034)
[2017-12-23 16:19] VITALS: BP 94/50; PULSE 81; RESP 18
== END 2017-12-23 16:34 | disposition other institution (70) ==
LOC: EC 10:36
DX: I11.0 Hypertensive heart disease with heart failure (principal); I50.9 Heart failure, unspecified; I95.9 Hypotension, unspecified; J44.9 Chronic obstructive pulmonary disease, unspecified; E11.9 Type 2 diabetes mellitus without complications; M19.90 Unspecified osteoarthritis, unspecified site; Z87.891 Personal history of nicotine dependence; Z98.1 Arthrodesis status; Z79.4 Long term (current) use of insulin; Z79.82 Long term (current) use of aspirin; Z79.899 Other long term (current) drug therapy
CPT/HCPCS: 36415; 71046; 80053; 82550; 82553; 83605; 83735; 83880; 84484; 85025; 85610; 85730; 87040; 93005; 99291

== ENCOUNTER 2018-01-10 17:33 | Inpatient (IN) | payer MEDICARE, BC, OTHER ==
--- NOTE | 2018-01-10 18:03 | ED ---
General Adult HPI - General Chief complaint: Weakness Stated complaint: weakness Time Seen by Provider: 01/10/18 17:43 Source: patient Mode of arrival: ambulatory Limitations: no limitations - History of Present Illness Initial comments: This is an 82-year-old male with a history of end-stage heart failure who presents emergency department for generalized fatigue and weakness. The patient states is been going on for the last 3 weeks. He states that he normally emulate with a cane which she has been able to do over the last 3 weeks however states he just feels more weak when doing so. He feels that he is more unsteady. He denies any chest pain or shortness of breath that out of the normal for him. He states that he has noticed a decrease in urination however. He is also noted a little bit of swelling of his lower extremities and had difficulty putting on his pants yesterday because of swelling. He states that he was recently switched from Lasix to Bumex about 3 weeks ago which is when this decreased urination and symptoms started. He is also on a milrinone drip at 0.3 mics per KG per hour through a left upper extremity PICC in he denies any lightheadedness or syncope. He did have a home care nurse who came and evaluated him today and recommended he come to the ER. - Related Data Home Medications Medication Instructions Recorded Confirmed Albuterol Inhaler [Ventolin Hfa 2 puff INHALATION RT-QID PRN 11/25/17 01/10/18 Inhaler] Aspirin EC [Ecotrin Low Dose] 81 mg PO DAILY 11/25/17 01/10/18 Docusate [Colace] 100 mg PO DAILY PRN 11/25/17 01/10/18 Gabapentin [Neurontin] 100 mg PO BID 11/25/17 01/10/18 Insulin Aspart Protam & Aspart 12 unit SQ AC-SUPPER 11/25/17 01/10/18 [NovoLOG MIX 70-30 Flexpen] Ipratropium-Albuterol Nebulize 3 ml INHALATION RT-TID 11/25/17 01/10/18 [Duoneb 0.5 mg-3 mg/3 ml Soln] Primacor 1mg/Ml 1 dose IV CONTINUOUS 11/25/17 01/10/18 Tamsulosin HCl [Flomax] 0.4 mg PO DAILY 11/25/17 01/10/18 glipiZIDE [Glucotrol] 5 mg PO AC-BID 11/25/17 01/10/18 Amiodarone [Cordarone] 200 mg PO DAILY 12/23/17 01/10/18 Bumetanide [BUMEX] 2 mg PO DAILY 12/23/17 01/10/18 Allopurinol [Zyloprim] 100 mg PO DAILY 01/10/18 01/10/18 Allergies Allergy/AdvReac Type Severity Reaction Status Date / Time No Known Allergies Allergy Verified 01/10/18 18:39 Review of Systems ROS Statement: Those systems with pertinent positive or pertinent negative responses have been documented in the HPI. ROS Other: All systems not noted in ROS Statement are negative. Past Medical History Past Medical History: Heart Failure, COPD, Diabetes Mellitus, Hypertension, Osteoarthritis (OA), Renal Disease Additional Past Medical History / Comment(s): Amlyodosis, Anemia History of Any Multi-Drug Resistant Organisms: None Reported Past Surgical History: Back Surgery Additional Past Surgical History / Comment(s): bilateral foot operation, right elbow , bilateral hand surgeries, cervical fusion rotator cuff Past Psychological History: No Psychological Hx Reported Smoking Status: Former smoker Past Alcohol Use History: None Reported Past Drug Use History: None Reported General Exam - General Exam Comments Initial Comments: Constitutional: Awake alert Appears comfortable Head: Normocephalic atraumatic Eyes: no conjunctival injection No scleral icterus EOMI Neck: No JVD Supple Heart: Regular rate rhythm normal S1-S2 no murmurs Lungs: Clear to auscultation bilaterally No wheezing No rales Abdomen: Soft nondistended nontender Extremities: No lower extremity edema is appreciated DP pulses intact Radial pulses intact, double lumen PICC and left upper extremity Neuro: A&Ox3 No focal neurologic deficits Psych: Appropriate mood and affect Limitations: no limitations Course Vital Signs 01/10/18 01/10/18 01/10/18 17:38 17:40 19:58 Temperature 97.5 F L Pulse Rate 75 71 Respiratory 18 18 18 Rate Blood Pressure 116/60 108/68 O2 Sat by Pulse 99 98 Oximetry EKG Findings - EKG Comments: EKG Findings:: EKG showing normal sinus rhythm with a rate of 72. There are some T-wave inversions in the inferior and lateral leads. No abnormal ST segment changes. QTC is 446. Other intervals normal. No ectopy. Medical Decision Making - Medical Decision Making Is an 82-year-old male with a history of late stage CHF who presents emergency department for generalized weakness. The patient is found to be anemic at 8.0. I did do a rectal examination and guaiac was negative. The patient denies any dark or bloody stools. However he has been very fatigued. He denies any chest pain or shortness of breath. With his heart failure team at [facility]. I spoke with him about his Bumex dosing and changing the medication. They stated that this time they would not recommend any changes however if he developed any peripheral edema they would recommend increasing the Bumex to twice a day dosing. The patient in their mind was okay to stay here if he wanted to. The patient stated that he wanted to stay at this hospital. The patient will stay for further anemia workup. Repeat CBC in the morning and cardiology consult per Dr. Sharp. The patient was updated and agrees with this. - Lab Data Result diagrams: 01/10/18 18:05 01/10/18 18:05 Lab Results 01/10/18 01/10/18 01/10/18 Range/Units 18:05 18:05 18:05 WBC 7.7 (3.8-10.6) k/uL RBC 2.49 L (4.30-5.90) m/uL Hgb 8.0 L D (13.0-17.5) gm/dL Hct 24.2 L (39.0-53.0) % MCV 97.1 (80.0-100.0) fL MCH 32.1 (25.0-35.0) pg MCHC 33.1 (31.0-37.0) g/dL RDW 14.6 (11.5-15.5) % Plt Count 308 (150-450) k/uL Neutrophils % 69 % Lymphocytes % 16 % Monocytes % 8 % Eosinophils % 4 % Basophils % 0 % Neutrophils # 5.3 (1.3-7.7) k/uL Lymphocytes # 1.2 (1.0-4.8) k/uL Monocytes # 0.6 (0-1.0) k/uL Eosinophils # 0.3 (0-0.7) k/uL Basophils # 0.0 (0-0.2) k/uL PT (9.0-12.0) sec INR (<1.2) APTT (22.0-30.0) sec Sodium 137 (137-145) mmol/L Potassium 4.1 (3.5-5.1) mmol/L Chloride 96 L (98-107) mmol/L Carbon Dioxide 26 (22-30) mmol/L Anion Gap 15 mmol/L BUN 48 H (9-20) mg/dL Creatinine 2.37 H (0.66-1.25) mg/dL Est GFR (CKD-EPI)AfAm 28 (>60 ml/min/1.73 sqM) Est GFR (CKD-EPI)NonAf 24 (>60 ml/min/1.73 sqM) Glucose 153 H (74-99) mg/dL POC Glucose (mg/dL) (75-99) mg/dL POC Glu Answering Service Operator ID Calcium 8.9 (8.4-10.2) mg/dL Total Bilirubin 0.9 (0.2-1.3) mg/dL AST 31 (17-59) U/L ALT 33 (21-72) U/L Alkaline Phosphatase 162 H (38-126) U/L Troponin I (0.000-0.034) ng/mL NT-Pro-B Natriuret Pep 7000 pg/mL Total Protein 6.8 (6.3-8.2) g/dL Albumin 3.6 (3.5-5.0) g/dL Urine Color Urine Appearance (Clear) Urine pH (5.0-8.0) Ur Specific [place] (1.001-1.035) Urine Protein (Negative) Urine Glucose (UA) (Negative) Urine Ketones (Negative) Urine Blood (Negative) Urine Nitrite (Negative) Urine Bilirubin (Negative) Urine Urobilinogen (<2.0) mg/dL Ur Leukocyte Esterase (Negative) 01/10/18 01/10/18 01/10/18 Range/Units 18:05 18:05 20:04 WBC (3.8-10.6) k/uL RBC (4.30-5.90) m/uL Hgb (13.0-17.5) gm/dL Hct (39.0-53.0) % MCV (80.0-100.0) fL MCH (25.0-35.0) pg MCHC (31.0-37.0) g/dL RDW (11.5-15.5) % Plt Count (150-450) k/uL Neutrophils % % Lymphocytes % % Monocytes % % Eosinophils % % Basophils % % Neutrophils # (1.3-7.7) k/uL Lymphocytes # (1.0-4.8) k/uL Monocytes # (0-1.0) k/uL Eosinophils # (0-0.7) k/uL Basophils # (0-0.2) k/uL PT 11.8 (9.0-12.0) sec INR 1.2 H (<1.2) APTT 25.5 (22.0-30.0) sec Sodium (137-145) mmol/L Potassium (3.5-5.1) mmol/L Chloride (98-107) mmol/L Carbon Dioxide (22-30) mmol/L Anion Gap mmol/L BUN (9-20) mg/dL Creatinine (0.66-1.25) mg/dL Est GFR (CKD-EPI)AfAm (>60 ml/min/1.73 sqM) Est GFR (CKD-EPI)NonAf (>60 ml/min/1.73 sqM) Glucose (74-99) mg/dL POC Glucose (mg/dL) 135 H (75-99) mg/dL POC Glu Answering Service Operator ID Loreto Barrios Calcium (8.4-10.2) mg/dL Total Bilirubin (0.2-1.3) mg/dL AST (17-59) U/L ALT (21-72) U/L Alkaline Phosphatase (38-126) U/L Troponin I 0.364 H* (0.000-0.034) ng/mL NT-Pro-B Natriuret Pep pg/mL Total Protein (6.3-8.2) g/dL Albumin (3.5-5.0) g/dL Urine Color Urine Appearance (Clear) Urine pH (5.0-8.0) Ur Specific [place] (1.001-1.035) Urine Protein (Negative) Urine Glucose (UA) (Negative) Urine Ketones (Negative) Urine Blood (Negative) Urine Nitrite (Negative) Urine Bilirubin (Negative) Urine Urobilinogen (<2.0) mg/dL Ur Leukocyte Esterase (Negative) 01/10/18 Range/Units 20:19 WBC (3.8-10.6) k/uL RBC (4.30-5.90) m/uL Hgb (13.0-17.5) gm/dL Hct (39.0-53.0) % MCV (80.0-100.0) fL MCH (25.0-35.0) pg MCHC (31.0-37.0) g/dL RDW (11.5-15.5) % Plt Count (150-450) k/uL Neutrophils % % Lymphocytes % % Monocytes % % Eosinophils % % Basophils % % Neutrophils # (1.3-7.7) k/uL Lymphocytes # (1.0-4.8) k/uL Monocytes # (0-1.0) k/uL Eosinophils # (0-0.7) k/uL Basophils # (0-0.2) k/uL PT (9.0-12.0) sec INR (<1.2) APTT (22.0-30.0) sec Sodium (137-145) mmol/L Potassium (3.5-5.1) mmol/L Chloride (98-107) mmol/L Carbon Dioxide (22-30) mmol/L Anion Gap mmol/L BUN (9-20) mg/dL Creatinine (0.66-1.25) mg/dL Est GFR (CKD-EPI)AfAm (>60 ml/min/1.73 sqM) Est GFR (CKD-EPI)NonAf (>60 ml/min/1.73 sqM) Glucose (74-99) mg/dL POC Glucose (mg/dL) (75-99) mg/dL POC Glu Answering Service Operator ID Calcium (8.4-10.2) mg/dL Total Bilirubin (0.2-1.3) mg/dL AST (17-59) U/L ALT (21-72) U/L Alkaline Phosphatase (38-126) U/L Troponin I (0.000-0.034) ng/mL NT-Pro-B Natriuret Pep pg/mL Total Protein (6.3-8.2) g/dL Albumin (3.5-5.0) g/dL Urine Color Yellow Urine Appearance Clear (Clear) Urine pH 5.5 (5.0-8.0) Ur Specific [place] 1.009 (1.001-1.035) Urine Protein Negative (Negative) Urine Glucose (UA) Negative (Negative) Urine Ketones Negative (Negative) Urine Blood Negative (Negative) Urine Nitrite Negative (Negative) Urine Bilirubin Negative (Negative) Urine Urobilinogen <2.0 (<2.0) mg/dL Ur Leukocyte Esterase Negative (Negative) Disposition Clinical Impression: Anemia, CHF (congestive heart failure) Disposition: ADMITTED IP TO THIS HOSP Condition: Stable Is patient prescribed a controlled substance at d/c from ED?: No
[2018-01-10 18:14] LABS: Basophils % (A) 0 %; Eosinophils # (A) 0.3 k/uL (0-0.7); Eosinophils % (A) 4 %; HCT 24.2 % (39.0-53.0); Lymphocytes # (A) 1.2 k/uL (1.0-4.8); Lymphocytes % (A) 16 %; MCH 32.1 pg (25.0-35.0); MCHC 33.1 g/dL (31.0-37.0); MCV 97.1 fL (80.0-100.0); Mean Platelet Volume 7.7; Monocytes # (A) 0.6 k/uL (0-1.0); Monocytes % (A) 8 %; Neutrophils # (A) 5.3 k/uL (1.3-7.7); Neutrophils % (A) 69 %; Platelet Count 308 k/uL (150-450); RBC 2.49 m/uL (4.30-5.90); RDW 14.6 % (11.5-15.5); WBC 7.7 k/uL (3.8-10.6)
[2018-01-10 18:22] LABS: Albumin 3.6 g/dL (3.5-5.0); Calcium 8.9 mg/dL (8.4-10.2); INR 1.2 (<1.2); Partial Thromboplastin Time 25.5 sec (22.0-30.0); Potassium 4.1 mmol/L (3.5-5.1); Prothrombin Time 11.8 sec (9.0-12.0); Total Bilirubin 0.9 mg/dL (0.2-1.3); Total Protein 6.8 g/dL (6.3-8.2)
--- NOTE | 2018-01-10 18:38 | XR ---
EXAMINATION TYPE: XR chest 2V DATE OF EXAM: 01/10/2018 COMPARISON: 12/23/2017 HISTORY: Cough TECHNIQUE: Frontal and lateral views of the chest are obtained. FINDINGS: There is no heart failure nor confluent pneumonic infiltrate. Costophrenic angles are kulwant r. Bony thorax is intact. Pulmonary vascularity is normal. IMPRESSION: No active cardiopulmonary disease. No change.
[2018-01-10 20:18] LABS: Glucose,Whole Blood 135 mg/dL (75-99)
[2018-01-10 20:29] LABS: Appearance,Urine Clear (Clear); Bilirubin,Urine Negative (Negative); Blood,Urine Negative (Negative); Color,Urine Yellow; Glucose,Urine (UA) Negative (Negative); Ketones,Urine Negative (Negative); Leukocyte Esterase,Urine Negative (Negative); Nitrite,Urine Negative (Negative); PH, Urine 5.5 (5.0-8.0); Protein,Urine Negative (Negative); Specific Gravity,Urine 1.009 (1.001-1.035); Urobilinogen,Urine <2.0 mg/dL (<2.0)
[2018-01-10] MEDS ORDERED: NALOXONE 0.4 MG/ML 1 ML VIAL IV PRN (20:56)
[2018-01-10] MEDS ORDERED: ALBUTEROL NEBULIZED 2.5 MG/3 ML INHALATION PRN (20:57)
[2018-01-10] MEDS ORDERED: DOCUSATE 100 MG CAP PO PRN (20:57)
[2018-01-10] MEDS ORDERED: PRIMACOR IV SCH (21:00)
[2018-01-10 22:46] VITALS: RESP 18; BMI 25.7
[2018-01-10] MEDS: GABAPENTIN 100 MG CAP PO SCH (22:51)
[2018-01-11] MEDS: MILRINONE-D5W PMX 20 MG in DEXTROSE/WATER 1 100ML.BAG IV SCH ×2 (00:03→12:28)
[2018-01-11 06:47] LABS: Basophils % (A) 0 %; Eosinophils # (A) 0.2 k/uL (0-0.7); Eosinophils % (A) 4 %; HCT 29.5 % (39.0-53.0); Lymphocytes % (A) 17 %; MCH 32.1 pg (25.0-35.0); MCHC 32.6 g/dL (31.0-37.0); MCV 98.4 fL (80.0-100.0); Mean Platelet Volume 7.5; Monocytes # (A) 0.5 k/uL (0-1.0); Monocytes % (A) 8 %; Neutrophils # (A) 3.8 k/uL (1.3-7.7); Neutrophils % (A) 67 %; Platelet Count 253 k/uL (150-450); RDW 14.3 % (11.5-15.5); WBC 5.6 k/uL (3.8-10.6)
[2018-01-11 06:49] LABS: HGB 9.6 gm/dL (13.0-17.5)
[2018-01-11 06:59] LABS: Glucose,Whole Blood 132 mg/dL (75-99)
[2018-01-11] MEDS: glipiZIDE 5 MG TAB PO SCH ×2 (06:59→17:29)
--- NOTE | 2018-01-11 08:10 | P.HPIM ---
History of Present Illness Chief complaint Weakness History of present illness The patient is an 82 year old gentleman with end-stage congestive heart failure who is being treated with outpatient milrinone drip along with recent change from Lasix to Bumex as his diuretic. The patient states over the past few days has become more weak. Having difficulties getting up out of bed or chair without assistance. No complaints of chest pain or change in his usual shortness of breath. Apparently he was seen by his home nurse who recommended he come to the emergency room and he was found to have a hemoglobin which was low at 8.0. Patient did not have any definite history of blood loss. No melena or hematochezia. And repeat hemoglobin this morning is 9.6. Past medical history Congestive heart failure with chronic systolic dysfunction and diastolic dysfunction and poor ejection fraction and previous echocardiograms. Followed by Dr. Elke krishna and [facility] congestive heart failure center. 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 His also had cervical neck fusion and bilateral hand surgeries. No known ALLERGIES Home medications: Tamsulosin 0.4 mg daily NovoLog [id number] units before meals supper Primacor of 1 mg IV continuous DuoNeb respiratory treatments 0.5 mg-3 mg in 3 mL 3 times a day Neurontin 100 mg twice a day Colace 100 mg as needed daily Bumex 2 mg daily Aspirin 81 mg daily Amiodarone 200 mg daily Ventolin inhaler 2 puffs as needed 4 times a day Allopurinol 100 mg daily Glipizide 5 mg twice a day Review of systems No unusual visual changes or headache. No unusual fever or chills or cough No nausea or vomiting or urinary or bowel symptomatology. No melena or hematochezia. Patient has had some on and off edema of the lower extremities. Family history is positive for coronary artery disease and diabetes Social history Patient has earlier quit smoking. No history of any extensive alcohol intake. He does live locally with his and does have some family support. Physical examination Patient is lying flat in bed. No acute distress at rest. Vital signs reveal temperature of 97 with a pulse of 72 and respirations 18. Blood pressure 105/55 and is 98% saturated on room air. Head is atraumatic. Extraocular movements intact. Pupils are equal and reactive to light. Echo supple without adenopathy or thyromegaly or bruits detected. Lungs are generally clear to auscultation. Heart tones were regular without murmurs or rubs appreciated Abdomen is soft and nontender without rebound guarding or masses Rectal exam deferred. Extremities revealed no unusual edema. Neurologic exam does reveal some diffuse weakness. No focal weakness. Cranial nerves intact. He is alert and oriented. Laboratory values Once again white count is 5.6 with a hemoglobin 9.6 and a platelet count of 253. Electrolytes were unremarkable. Potassium 4.0. BUN of 47 with creatinine 2.17 given him a GFR of 31. Blood sugar 129, calcium 9.0. Urinalysis was unremarkable. Chest x-ray did not show any evidence of failure. EKG revealed a normal sinus rhythm with a rate of 72. Poor R-wave progression anteriorly. No definite acute changes though. Impressions Overall this 82-year-old gentleman who presented with weakness and has end- stage congestive heart failure. Question whether the weakness is related to one of his medications. Such as the amiodarone. Initially were concerned with his anemia but it does not appear to be worsening based on this morning's labs. Patient has other chronic but appear to be stable past medical history as stated above. Plans At this point we will check thyroid studies along with adding physical therapy. Patient expresses a wish to return to his home. He will be evaluated for the safety of that. We will ask cardiology to review also. Further recommendations pending clinical response and results of above. This was discussed with the patient and nursing staff this morning. Patient wishes to be no code no CPR. Past Medical History Past Medical History: Heart Failure, COPD, Diabetes Mellitus, Hypertension, Osteoarthritis (OA), Renal Disease Additional Past Medical History / Comment(s): Amlyodosis, Anemia History of Any Multi-Drug Resistant Organisms: None Reported Past Surgical History: Back Surgery Additional Past Surgical History / Comment(s): bilateral foot operation, right elbow , bilateral hand surgeries, cervical fusion rotator cuff Past Anesthesia/Blood Transfusion Reactions: No Reported Reaction Past Psychological History: No Psychological Hx Reported Smoking Status: Former smoker Past Alcohol Use History: None Reported Past Drug Use History: None Reported Medications and Allergies Home Medications Medication Instructions Recorded Confirmed Type Albuterol Inhaler [Ventolin Hfa 2 puff INHALATION RT-QID PRN 11/25/17 01/10/18 History Inhaler] Aspirin EC [Ecotrin Low Dose] 81 mg PO DAILY 11/25/17 01/10/18 History Docusate [Colace] 100 mg PO DAILY PRN 11/25/17 01/10/18 History Gabapentin [Neurontin] 100 mg PO BID 11/25/17 01/10/18 History Insulin Aspart Protam & Aspart 12 unit SQ AC-SUPPER 11/25/17 01/10/18 History [NovoLOG MIX 70-30 Flexpen] Ipratropium-Albuterol Nebulize 3 ml INHALATION RT-TID 11/25/17 01/10/18 History [Duoneb 0.5 mg-3 mg/3 ml Soln] Primacor 1mg/Ml 1 dose IV CONTINUOUS 11/25/17 01/10/18 History Tamsulosin HCl [Flomax] 0.4 mg PO DAILY 11/25/17 01/10/18 History glipiZIDE [Glucotrol] 5 mg PO AC-BID 11/25/17 01/10/18 History Amiodarone [Cordarone] 200 mg PO DAILY 12/23/17 01/10/18 History Bumetanide [BUMEX] 2 mg PO DAILY 12/23/17 01/10/18 History Allopurinol [Zyloprim] 100 mg PO DAILY 01/10/18 01/10/18 History Allergies Allergy/AdvReac Type Severity Reaction Status Date / Time No Known Allergies Allergy Verified 01/10/18 18:39 Physical Exam Vitals: Vital Signs Temp Pulse Pulse Resp BP BP Pulse Ox 01/11/18 04:00 97 F L 72 18 105/55 98 01/10/18 22:53 18 01/10/18 22:30 97.2 F L 75 18 93/52 98 01/10/18 21:49 98.6 F 78 16 109/65 98 01/10/18 19:58 71 18 108/68 98 01/10/18 19:00 79 18 96 01/10/18 17:40 18 01/10/18 17:38 97.5 F L 75 18 116/60 99 Intake and Output 01/10/18 01/11/18 01/11/18 22:59 06:59 14:59 Output Total 275 Balance -275 Output: Urine 275 Other: # Voids 1 Weight 83.6 kg 83.6 kg Results CBC & Chem 7: 01/11/18 06:00 01/11/18 06:00 Labs: Abnormal Lab Results - Last 24 Hours (Table) 01/10/18 01/10/18 01/10/18 Range/Units 18:05 18:05 18:05 RBC 2.49 L (4.30-5.90) m/uL Hgb 8.0 L D (13.0-17.5) gm/dL Hct 24.2 L (39.0-53.0) % INR 1.2 H (<1.2) Chloride 96 L (98-107) mmol/L BUN 48 H (9-20) mg/dL Creatinine 2.37 H (0.66-1.25) mg/dL Glucose 153 H (74-99) mg/dL POC Glucose (mg/dL) (75-99) mg/dL Alkaline Phosphatase 162 H (38-126) U/L Troponin I (0.000-0.034) ng/mL 01/10/18 01/10/18 01/11/18 Range/Units 18:05 20:04 06:00 RBC 3.00 L (4.30-5.90) m/uL Hgb 9.6 L D (13.0-17.5) gm/dL Hct 29.5 L (39.0-53.0) % INR (<1.2) Chloride (98-107) mmol/L BUN (9-20) mg/dL Creatinine (0.66-1.25) mg/dL Glucose (74-99) mg/dL POC Glucose (mg/dL) 135 H (75-99) mg/dL Alkaline Phosphatase (38-126) U/L Troponin I 0.364 H* (0.000-0.034) ng/mL 01/11/18 01/11/18 Range/Units 06:00 06:56 RBC (4.30-5.90) m/uL Hgb (13.0-17.5) gm/dL Hct (39.0-53.0) % INR (<1.2) Chloride (98-107) mmol/L BUN 47 H (9-20) mg/dL Creatinine 2.17 H (0.66-1.25) mg/dL Glucose 129 H (74-99) mg/dL POC Glucose (mg/dL) 132 H (75-99) mg/dL Alkaline Phosphatase (38-126) U/L Troponin I (0.000-0.034) ng/mL Thrombosis Risk Factor Assmnt - Choose All That Apply Any of the Below Risk Factors Present?: Yes Each Factor Represents 1 point: Abnormal pulmonary function (COPD), Heart failure (<1month), Medical pt on bed rest Other Risk Factors: Yes Each Risk Factor Represents 3 Points: Age 75 years or older Thrombosis Risk Factor Assessment Total Risk Factor Score: 6 Thrombosis Risk Factor Assessment Level: High Risk
[2018-01-11] MEDS: ASPIRIN 81 MG PO SCH (08:13)
[2018-01-11] MEDS: ALLOPURINOL 100 MG TAB PO SCH (08:13)
[2018-01-11] MEDS: TAMSULOSIN 0.4 MG CAP.ER.24H PO SCH (08:14)
[2018-01-11] MEDS: GABAPENTIN 100 MG CAP PO SCH ×2 (08:14→21:48)
[2018-01-11] MEDS: IPRATROPIUM-ALBUTEROL 3 ML NEB INHALATION SCH ×3 (08:31→19:20)
[2018-01-11] MEDS ORDERED: AMIODARONE 200 MG TAB PO SCH (09:00)
[2018-01-11] MEDS ORDERED: BUMETANIDE 1 MG TAB PO SCH (09:00)
[2018-01-11 09:03] LABS: C Reactive Protein 34.3 mg/L (<10.0)
[2018-01-11 09:17] LABS: T4, Free (Free Thyroxine) 1.48 ng/dL (0.78-2.19)
--- NOTE | 2018-01-11 10:46 | P.CRDCN ---
History of Present Illness Consult date: 01/11/18 Requesting physician: Walter Serrano Consult reason: congestive heart failure Chief complaint: Weakness and shortness of breath History of present illness: This is a pleasant 82-year-old gentleman who follows regularly with Dr. Arredondo in the office, he also follows with Dr. Jessica Silveira at the heart failure center at [facility]. 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 According to the patient, he had spent one week in the hospital at [facility], he states that he had not ambulated well there, on discharge home he was progressively more and more weak, also dates that he was experiencing exertional shortness of breath. Patient also states that his socks were getting tight, he had more edema than his usual in his feet and legs as well as abdominal area. For the above reasons patient came to the hospital for further evaluation. EKG on arrival here showed a normal sinus rhythm with non-specific ST-T wave changes. Chest x-ray did not reveal any active cardiopulmonary disease. Blood pressure 94/50, heart rate in the 80s, afebrile, 98% on room air. Lab data was reviewed, white blood cell count is normal. Hemoglobin on admission 8.0, 9.6 this morning. Sodium 138, potassium 4.0, BUN 47, creatinine 2.1. Troponin at 0.36. BNP level 7000. TSH normal. Patient states he has not had any black stool or blood in his stool. Past Medical History Past Medical History: Heart Failure, COPD, Diabetes Mellitus, Hypertension, Osteoarthritis (OA), Renal Disease Additional Past Medical History / Comment(s): Amlyodosis, Anemia History of Any Multi-Drug Resistant Organisms: None Reported Past Surgical History: Back Surgery Additional Past Surgical History / Comment(s): bilateral foot operation, right elbow , bilateral hand surgeries, cervical fusion rotator cuff Past Anesthesia/Blood Transfusion Reactions: No Reported Reaction Past Psychological History: No Psychological Hx Reported Smoking Status: Former smoker Past Alcohol Use History: None Reported Past Drug Use History: None Reported - Past Family History Father Family Medical History: Chest Pain / Angina Medications and Allergies Home Medications Medication Instructions Recorded Confirmed Type Albuterol Inhaler [Ventolin Hfa 2 puff INHALATION RT-QID PRN 11/25/17 01/10/18 History Inhaler] Aspirin EC [Ecotrin Low Dose] 81 mg PO DAILY 11/25/17 01/10/18 History Docusate [Colace] 100 mg PO DAILY PRN 11/25/17 01/10/18 History Gabapentin [Neurontin] 100 mg PO BID 11/25/17 01/10/18 History Insulin Aspart Protam & Aspart 12 unit SQ AC-SUPPER 11/25/17 01/10/18 History [NovoLOG MIX 70-30 Flexpen] Ipratropium-Albuterol Nebulize 3 ml INHALATION RT-TID 11/25/17 01/10/18 History [Duoneb 0.5 mg-3 mg/3 ml Soln] Primacor 1mg/Ml 1 dose IV CONTINUOUS 11/25/17 01/10/18 History Tamsulosin HCl [Flomax] 0.4 mg PO DAILY 11/25/17 01/10/18 History glipiZIDE [Glucotrol] 5 mg PO AC-BID 11/25/17 01/10/18 History Amiodarone [Cordarone] 200 mg PO DAILY 12/23/17 01/10/18 History Bumetanide [BUMEX] 2 mg PO DAILY 12/23/17 01/10/18 History Allopurinol [Zyloprim] 100 mg PO DAILY 01/10/18 01/10/18 History Allergies Allergy/AdvReac Type Severity Reaction Status Date / Time No Known Allergies Allergy Verified 01/10/18 18:39 Physical Exam Vitals: Vital Signs Temp Pulse Pulse Resp BP BP Pulse Ox 01/11/18 08:31 72 01/11/18 04:00 97 F L 72 18 105/55 98 01/10/18 22:53 18 01/10/18 22:30 97.2 F L 75 18 93/52 98 01/10/18 21:49 98.6 F 78 16 109/65 98 01/10/18 19:58 71 18 108/68 98 01/10/18 19:00 79 18 96 01/10/18 17:40 18 01/10/18 17:38 97.5 F L 75 18 116/60 99 Intake and Output 01/10/18 01/11/18 01/11/18 22:59 06:59 14:59 Intake Total 240 Output Total 275 Balance -275 240 Intake: Oral 240 Output: Urine 275 Other: # Voids 1 Weight 83.6 kg 83.6 kg 83.6 kg PHYSICAL EXAMINATION: HEENT: Head is atraumatic, normocephalic. Pupils equal, round. Neck is supple. There is no elevated jugular venous pressure. HEART EXAMINATION: Heart S1, S2 normal. No murmur or gallop heard. CHEST EXAMINATION: Lungs are clear to auscultation and precussion. No chest wall tenderness is noted on palpation or with deep breathing. ABDOMEN: Soft, nontender. Bowel sounds are heard. No organomegaly noted. EXTREMITIES: 2+ peripheral pulses with no evidence of peripheral edema and no calf tenderness noted. NEUROLOGIC patient is awake, alert and oriented -3. . Results 01/11/18 06:00 01/11/18 06:00 Cardiac Enzymes 01/10/18 01/10/18 01/11/18 Range/Units 18:05 18:05 06:00 AST 31 (17-59) U/L CK-MB (CK-2) 1.1 (0.0-2.4) ng/mL Troponin I 0.364 H* (0.000-0.034) ng/mL Coagulation 01/10/18 Range/Units 18:05 PT 11.8 (9.0-12.0) sec APTT 25.5 (22.0-30.0) sec CBC 01/10/18 01/11/18 Range/Units 18:05 06:00 WBC 7.7 5.6 (3.8-10.6) k/uL RBC 2.49 L 3.00 L (4.30-5.90) m/uL Hgb 8.0 L D 9.6 L D (13.0-17.5) gm/dL Hct 24.2 L 29.5 L (39.0-53.0) % Plt Count 308 253 (150-450) k/uL Comprehensive Metabolic Panel 01/10/18 01/11/18 Range/Units 18:05 06:00 Sodium 137 138 (137-145) mmol/L Potassium 4.1 4.0 (3.5-5.1) mmol/L Chloride 96 L 98 (98-107) mmol/L Carbon Dioxide 26 29 (22-30) mmol/L BUN 48 H 47 H (9-20) mg/dL Creatinine 2.37 H 2.17 H (0.66-1.25) mg/dL Glucose 153 H 129 H (74-99) mg/dL Calcium 8.9 9.0 (8.4-10.2) mg/dL AST 31 (17-59) U/L ALT 33 (21-72) U/L Alkaline Phosphatase 162 H (38-126) U/L Total Protein 6.8 (6.3-8.2) g/dL Albumin 3.6 (3.5-5.0) g/dL Current Medications Generic Name Dose Route Start Last Admin Trade Name Freq PRN Reason Stop Dose Admin Albuterol Sulfate 2.5 mg 01/10/18 20:57 Ventolin Nebulized INHALATION RT-QID PRN Shortness Of Breath Albuterol/Ipratropium 3 ml 01/11/18 08:00 01/11/18 08:31 Duoneb 0.5 Mg-3 Mg/3 Ml Soln INHALATION 3 ml RT-TID COLIN Administration Allopurinol 100 mg 01/11/18 09:00 01/11/18 08:13 Zyloprim PO 100 mg DAILY COLIN Administration Amiodarone HCl 200 mg 01/11/18 09:00 01/11/18 08:13 Cordarone PO 200 mg DAILY COLIN Administration Aspirin 81 mg 01/11/18 09:00 01/11/18 08:13 Aspirin PO 81 mg DAILY COLIN Administration Bumetanide 2 mg 01/11/18 09:00 01/11/18 08:13 Bumex PO 2 mg DAILY COLIN Administration Docusate Sodium 100 mg 01/10/18 20:57 Colace PO DAILY PRN Constipation Gabapentin 100 mg 01/10/18 21:00 01/11/18 08:14 Neurontin PO 100 mg BID COLIN Administration Glipizide 5 mg 01/11/18 07:30 01/11/18 06:59 Glucotrol PO 5 mg AC-BID COLIN Administration Milrinone Lactate/Dextrose 20 100 mls @ 6.93 mls/hr 01/10/18 21:45 01/11/18 00:03 mg/ IV Solution IV Not Given .[id number] COLIN 23.1 MCG/MIN Insulin Aspart 12 unit 01/11/18 17:30 Novolog Mix 70-30 Vial SQ AC-SUPPER COLIN Naloxone HCl 0.2 mg 01/10/18 20:56 Narcan IV Q2M PRN Opioid Reversal Tamsulosin HCl 0.4 mg 01/11/18 09:00 01/11/18 08:14 Flomax PO 0.4 mg DAILY COLIN Administration Intake and Output 01/10/18 01/11/18 01/11/18 22:59 06:59 14:59 Intake Total 240 Output Total 275 Balance -275 240 Intake: Oral 240 Output: Urine 275 Other: # Voids 1 Weight 83.6 kg 83.6 kg 83.6 kg Patient Weight 01/12/18 06:59 Weight 83.6 kg 01/11/18 06:00 01/11/18 06:00 EKG Interpretations (text) EKG shows a normal sinus rhythm with nonspecific ST-T wave changes Assessment and Plan Plan: Assessment and plan #1 symptoms of progressively worsening shortness of breath and associated weakness, likely combination of congestive heart failure and anemia. #2 anemia #3 cardiac amyloidosis with restrictive cardiomyopathy #4 acute on chronic chronic congestive heart failure on milrinone therapy #5 diabetes #6 stage III chronic kidney disease #7 hypertension Plan We will obtain an echocardiogram with Doppler study. Suggest workup for anemia. Initiate IV Lasix. Patient states that since he was initiated on Bumex, he has not been putting out as much urine as when he is taking Lasix at home. We will obtain Dr. Arredondo progress note from the office. Further recommendations to follow. DNP note has been reviewed, I agree with a documented findings and plan of care. Patient was seen and examined.
--- NOTE | 2018-01-11 11:31 | P.PN ---
Progress Note - Text this is an addendum to the dictated cardiology consultation. The patient has a known history of severe nonischemic cardiomyopathy, on continuous milrinone infusion who presents with symptoms of progressive fatigue and some dyspnea. Recently he noted some increased abdominal girth and mild edema. He was at [facility] for about a week recently. He has no chest discomfort no dizziness or palpitations. He was recently started on amiodarone because of an episode of ventricular tachycardia. His physical examination shows few crackles at the bases, he has a systolic murmur but no peripheral edema. I will give him intravenous diuresis for 24 hours, continue milrinone drip. The dose of his amiodarone be decreased to 100 mg daily, his renal function will be followed and depending on his progress further recommendations will be made. Thank you for this consult we will follow with you.
[2018-01-11 11:47] LABS: Glucose,Whole Blood 208 mg/dL (75-99)
[2018-01-11] MEDS: FUROSEMIDE 10 MG/ML 4 ML VIAL IV SCH ×2 (12:29→21:47)
[2018-01-11 16:51] LABS: Glucose,Whole Blood 189 mg/dL (75-99)
[2018-01-11 16:57] LABS: Iron Saturation 11.21 (15.00-50.00)
[2018-01-11] MEDS: INSULN ASP PRT/INSULIN ASPART 100 UNIT/ML 10 ML VIAL SQ SCH (18:40)
[2018-01-11 21:19] LABS: Glucose,Whole Blood 144 mg/dL (75-99)
[2018-01-12] MEDS: MILRINONE-D5W PMX 20 MG in DEXTROSE/WATER 1 100ML.BAG IV SCH ×2 (01:46→14:40)
[2018-01-12 06:01] LABS: Glucose,Whole Blood 122 mg/dL (75-99)
[2018-01-12] MEDS: glipiZIDE 5 MG TAB PO SCH ×2 (06:47→17:39)
[2018-01-12] MEDS: IPRATROPIUM-ALBUTEROL 3 ML NEB INHALATION SCH ×3 (07:09→20:09)
[2018-01-12 07:26] LABS: Calcium 8.1 mg/dL (8.4-10.2); Potassium 4.2 mmol/L (3.5-5.1)
--- NOTE | 2018-01-12 08:13 | P.PN ---
Progress Note - Text The patient is an 82-year-old gentleman with end-stage congestive heart failure with restrictive cardiomyopathy likely from amyloid deposition. He is being followed by cardiology locally and [facility] congestive heart failure clinic and is on IV milrinone as an outpatient. Patient developed increased fluid retention and weakness. He has been found to be anemic and also chronic kidney disease stage III. Patient feels somewhat better this morning. Denies any chest pain. No nausea or vomiting. He has been seen by cardiology and there has been some adjustment in his amiodarone. Last vital signs reveal temperature of 98 with a pulse of 72 and respirations 18. Blood pressure 99/62 and he is 97% saturated when he was on CPAP earlier. He is alert and oriented. Few crpes at the bases. No wheezes. Heart tones for the most part are regular. Abdomen nontender. No distal edema at this time. No focal neurological deficits noted. Laboratory Hemoglobin from yesterday revealed it to be 9.6 with an MCV of 98.4. White count is 5.6 with a platelet count of 253. BUN yesterday was 47 with a creatinine of 2.17 given him a GFR of 31. This morning's GFR has improved to 37 with a BUN of 44 and creatinine 1.9. Potassium is 4.2 with a sodium 141. TSH normal at 4.3 with a free T4 normal at 1.48. Iron saturation though was low at 11.2. Impressions and plans Patient with chronic systolic and diastolic congestive heart failure with restrictive cardiomyopathy. On milrinone drip. Clinically seems to be improving at this time. Patient with chronic kidney disease along with anemia and mildly low iron studies. This may be contributing to his congestive heart failure symptoms and weakness. We will add iron orally. We will ask nephrology to evaluate. Further recommendations pending clinical response and results of above. Discussed with patient at bedside this morning.
[2018-01-12 08:24] LABS: HCT 23.6 % (39.0-53.0); MCH 32.3 pg (25.0-35.0); MCHC 32.3 g/dL (31.0-37.0); MCV 99.7 fL (80.0-100.0); Macrocytosis Slight; Mean Platelet Volume 7.8; Platelet Count 219 k/uL (150-450); RBC 2.37 m/uL (4.30-5.90); RDW 14.3 % (11.5-15.5); WBC 4.6 k/uL (3.8-10.6)
[2018-01-12 08:26] LABS: HGB 7.6 gm/dL (13.0-17.5)
[2018-01-12] MEDS: FUROSEMIDE 10 MG/ML 4 ML VIAL IV SCH ×2 (08:39→20:57)
[2018-01-12] MEDS: AMIODARONE 100 MG TAB PO SCH (08:39)
[2018-01-12] MEDS: GABAPENTIN 100 MG CAP PO SCH ×2 (08:40→20:57)
[2018-01-12] MEDS: ASPIRIN 81 MG PO SCH (08:40)
[2018-01-12] MEDS: TAMSULOSIN 0.4 MG CAP.ER.24H PO SCH (08:40)
[2018-01-12] MEDS: ALLOPURINOL 100 MG TAB PO SCH (08:40)
--- NOTE | 2018-01-12 08:55 | P.NPCON ---
History of Present Illness - Reason for Consult acute renal failure - History of Present Illness Reason for consultation: Acute kidney injury History of present illness: Patient is a 82-year-old male seen in renal consultation for acute kidney injury. 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 Creatinine was 2.37 on admission and is down to 1.9 today. Patient has history of cardiac amyloidosis with restrictive cardiomyopathy and follows with heart failure team out of [facility] in [place]. Patient presented to the hospital with generalized weakness. Patient states he was unable to put his shoes on 2 days ago due to lower extremity edema. He is currently maintained on Lasix 40 mg IV twice daily and is diuresing well. Edema has resolved. Admits to good urine output. No hematuria or dysuria. He is also maintained on Primacor drip at this time. He is maintained on Primacor as an outpatient as well. He is overall feeling better. Hemodynamically stable. No vomiting or diarrhea. He does avoid salt. Denies drinking excessive amounts of fluids. Denies regular use of NSAIDs. Patient states he was taking Bumex as an outpatient which she states didn't work as well as Lasix. Vital signs are stable. General: The patient appeared well nourished and normally developed. HEENT: Head exam is unremarkable. Neck is without jugular venous distension. LUNGS: Lungs are clear to auscultation and percussion. Breath sounds decreased. HEART: Rate and Rhythm are regular. First and second heart sounds normal. No murmurs, rubs or gallops. ABDOMEN: Abdominal exam reveals normal bowel sounds. Non-tender and non- distended. No evidence of peritonitis. EXTREMITITES: No clubbing, cyanosis, or edema. Past Medical History Past Medical History: Heart Failure, COPD, Diabetes Mellitus, Hypertension, Osteoarthritis (OA), Renal Disease Additional Past Medical History / Comment(s): Amlyodosis, Anemia History of Any Multi-Drug Resistant Organisms: None Reported Past Surgical History: Back Surgery Additional Past Surgical History / Comment(s): bilateral foot operation, right elbow , bilateral hand surgeries, cervical fusion rotator cuff Past Anesthesia/Blood Transfusion Reactions: No Reported Reaction Past Psychological History: No Psychological Hx Reported Smoking Status: Former smoker Past Alcohol Use History: None Reported Past Drug Use History: None Reported - Past Family History Father Family Medical History: Chest Pain / Angina Medications and Allergies Home Medications Medication Instructions Recorded Confirmed Type Albuterol Inhaler [Ventolin Hfa 2 puff INHALATION RT-QID PRN 11/25/17 01/10/18 History Inhaler] Aspirin EC [Ecotrin Low Dose] 81 mg PO DAILY 11/25/17 01/10/18 History Docusate [Colace] 100 mg PO DAILY PRN 11/25/17 01/10/18 History Gabapentin [Neurontin] 100 mg PO BID 11/25/17 01/10/18 History Insulin Aspart Protam & Aspart 12 unit SQ AC-SUPPER 11/25/17 01/10/18 History [NovoLOG MIX 70-30 Flexpen] Ipratropium-Albuterol Nebulize 3 ml INHALATION RT-TID 11/25/17 01/10/18 History [Duoneb 0.5 mg-3 mg/3 ml Soln] Primacor 1mg/Ml 1 dose IV CONTINUOUS 11/25/17 01/10/18 History Tamsulosin HCl [Flomax] 0.4 mg PO DAILY 11/25/17 01/10/18 History glipiZIDE [Glucotrol] 5 mg PO AC-BID 11/25/17 01/10/18 History Amiodarone [Cordarone] 200 mg PO DAILY 12/23/17 01/10/18 History Bumetanide [BUMEX] 2 mg PO DAILY 12/23/17 01/10/18 History Allopurinol [Zyloprim] 100 mg PO DAILY 01/10/18 01/10/18 History Allergies Allergy/AdvReac Type Severity Reaction Status Date / Time No Known Allergies Allergy Verified 01/10/18 18:39 Physical Exam Vitals: Vital Signs Temp Pulse Pulse Resp BP Pulse Ox 01/12/18 07:20 72 01/12/18 07:09 68 01/12/18 04:00 98.5 F 70 18 99/62 97 01/12/18 00:00 98.0 F 71 18 105/59 98 01/11/18 20:00 98.2 F 65 18 106/57 98 01/11/18 19:33 88 01/11/18 19:20 88 01/11/18 16:00 97.4 F L 74 18 94/55 98 01/11/18 13:30 76 01/11/18 11:00 97.3 F L 80 18 103/61 98 Intake and Output 01/11/18 01/12/18 01/12/18 22:59 06:59 14:59 Intake Total 236 92.169 240 Output Total 0 400 Balance 236 -307.831 240 Intake: Intake, IV Titration 92.169 Amount Milrinone-D5w Pmx 20 mg 92.169 In Dextrose/Water 1 100ml .bag @ 23.1 MCG/MIN 6.93 mls/hr IV .[id number] [facility] Rx #:[id number] Oral 236 240 Output: Urine 0 400 Stool 0 0 Other: # Voids 0 # Bowel Movements 0 Weight 82.6 kg Results - Lab Results Most recent lab results Calcium 8.1 mg/dL (8.4-10.2) L 01/12/18 06:30 01/12/18 06:30 01/12/18 06:30 Assessment and Plan Plan: Assessment: #1. Nonoliguric acute kidney injury mostly prerenal secondary to cardiorenal syndrome. Creatinine was 2.37 on admission and is down to 1.9 today. Urinalysis is quite benign. #2. Chronic kidney disease stage III secondary to cardiorenal syndrome at baseline creatinine in the range of 1.2-1.4. #3. Cardiac amyloidosis with restrictive cardiomyopathy. #4. Fluid overload. Improved. #5. Anemia of chronic kidney disease. Rule out iron deficiency. #6. Diabetes mellitus. Plan: Maintain Lasix 40 mg IV twice daily for now. Continue with Primacor. Low-salt diet. 1.5 L fluid restriction. Follow-up echocardiogram results. Check iron studies. Add Aranesp. Repeat electrolytes in the morning. Thank you for the consultation. I will continue to follow the patient with you during his hospital stay.
[2018-01-12] MEDS ORDERED: DARBEPOETIN ALFA 40 MCG/0.4 ML SYRINGE SQ SCH (09:00)
--- NOTE | 2018-01-12 11:11 | ECHOF ---
Referral Reason:chf, anemia MEASUREMENTS -------- HEIGHT: 188.0 cm WEIGHT: 83.5 kg BP: RVIDd: 3.5 cm (< 3.3) IVSd: 2.1 cm (0.6 - 1.1) LVIDd: 2.9 cm (3.9 - 5.3) LVPWd: 2.2 cm (0.6 - 1.1) IVSs: 2.3 cm LVIDs: 2.6 cm LVPWs: 2.3 cm LA Diam: 4.5 cm (2.7 - 3.8) Ao Diam: 3.3 cm (2.0 - 3.7) AV Cusp: 1.6 cm (1.5 - 2.6) LA Diam: 5.4 cm (2.7 - 3.8) MV EXCURSION: 16.659 mm (> 18.000) MV EF SLOPE: 110 mm/s (70 - 150) EPSS: 0.5 cm MV E Peter: 0.75 m/s MV DecT: 183 ms MV A Peter: 0.18 m/s MV E/A Ratio: 4.18 RAP: 5.00 mmHg RVSP: 41.84 mmHg FINDINGS -------- Sinus rhythm. This was a technically good study. There is severe concentric left ventricular hypertrophy. Overall left ventricular systolic function is low-normal with, an EF between 50 - 55 %. The right ventricle is normal in size. The left atrium is moderately dilated. The right atrial size is normal. The aortic valve is trileaflet, and appears structurally normal. No aortic stenosis or regurgitation. Mild mitral annular calcification present. Mild mitral regurgitation is present. Moderate tricuspid regurgitation present. There is mild to moderate pulmonary hypertension. The r ight ventricular systolic pressure, as measured by Doppler, is 41.84mmHg. There is no pulmonic regurgitation present. The aortic root size is normal. There is no pericardial effusion. CONCLUSIONS -------- 1. There is severe concentric left ventricular hypertrophy. 2. Overall left ventricular systolic function is low-normal with, an EF between 50 - 55 %. 3. The left atrium is moderately dilated. 4. The aortic valve is trileaflet, and appears structurally normal. No aortic stenosis or regurgitati on. 5. Mild mitral annular calcification present. 6. Mild mitral regurgitation is present. 7. Moderate tricuspid regurgitation present. 8. There is mild to moderate pulmonary hypertension. 9. The right ventricular systolic pressure, as measured by Doppler, is 41.84mmHg. 10. There is no pulmonic regurgitation present. 11. The aortic root size is normal. 12. There is no pericardial effusion. [employer]: Essie Perrin RDCS
[2018-01-12 11:34] LABS: Glucose,Whole Blood 275 mg/dL (75-99)
[2018-01-12] MEDS: FERROUS SULFATE 325 MG TAB PO SCH (12:27)
[2018-01-12 12:45] LABS: HCT 31.4 % (39.0-53.0); HGB 10.2 gm/dL (13.0-17.5); MCH 32.1 pg (25.0-35.0); MCHC 32.5 g/dL (31.0-37.0); Macrocytosis Slight; Mean Platelet Volume 7.8; Platelet Count 257 k/uL (150-450); RBC 3.18 m/uL (4.30-5.90); RDW 14.3 % (11.5-15.5); WBC 6.5 k/uL (3.8-10.6)
--- NOTE | 2018-01-12 15:07 | P.CONS ---
History of Present Illness - Reason for Consult Consult date: 01/12/18 anemia Requesting physician: Walter Serrano - History of Present Illness 82-year-old -[place] gentleman with a past medical history of amyloidosis with restrictive nonischemic cardiomyopathy followed by cardiology team at [facility], stage III chronic kidney disease, diabetes, hypertension, and hyperlipidemia, maintained on continuous intravenous Primacor in the outpatient setting. Patient presented with weakness and shortness of breath. Recently hospitalized at [facility] for similar symptomology. Consult requested for anemia. Patient denies overt bleeding such as hematemesis hematochezia melena. No history of GI bleeds or peptic ulcer disease. No history of EGD. Last colonoscopy a few years ago and to his memory was normal. Denies abdominal pain. Review of medical records average hemoglobin over the last 6 months 10-14 range. Admission hemoglobin 8.0 decreased to 7.6 and presently 10.2 without blood transfusion. MCV 99 platelet platelet 257. BUN 44-48. Creatinine 1.9- 2.3. Iron 25. TIBC 223. Iron saturation 11%. Ferritin 269. He received intravenous and oral iron. Review of Systems Constitutional: Denies fever, chills, sweats, weight gain, or loss. HEENT: Negative for migraines, blurred vision or loss, earaches, drainage, tinnitus, oral mucosal lesions, dysphagia, or odynophagia. Cardiac: History of restrictive nonischemic cardiomyopathy amyloidosis CHF. Respiratory: Negative for shortness of breath, hemoptysis, cough, or sputum production. Gastrointestinal: See HPI for pertinent findings. Genitourinary: Negative for hematuria, urgency, frequency, polyuria, dysuria, or penile discharge. Musculoskeletal: Negative for muscle aches, swelling, arthritis, and arthralgias. Neurologic: Negative for stroke or TIA. Endocrine: Negative for thyroid problems. Skin: Negative for rash or itching. Psychiatric: Negative history for depression and anxiety Past Medical History Past Medical History: Heart Failure, COPD, Diabetes Mellitus, Hypertension, Osteoarthritis (OA), Renal Disease Additional Past Medical History / Comment(s): Amlyodosis, Anemia History of Any Multi-Drug Resistant Organisms: None Reported Past Surgical History: Back Surgery Additional Past Surgical History / Comment(s): bilateral foot operation, right elbow , bilateral hand surgeries, cervical fusion rotator cuff Past Anesthesia/Blood Transfusion Reactions: No Reported Reaction Past Psychological History: No Psychological Hx Reported Smoking Status: Former smoker Past Alcohol Use History: None Reported Past Drug Use History: None Reported - Past Family History Father Family Medical History: Chest Pain / Angina Medications and Allergies Home Medications Medication Instructions Recorded Confirmed Type Albuterol Inhaler [Ventolin Hfa 2 puff INHALATION RT-QID PRN 11/25/17 01/10/18 History Inhaler] Aspirin EC [Ecotrin Low Dose] 81 mg PO DAILY 11/25/17 01/10/18 History Docusate [Colace] 100 mg PO DAILY PRN 11/25/17 01/10/18 History Gabapentin [Neurontin] 100 mg PO BID 11/25/17 01/10/18 History Insulin Aspart Protam & Aspart 12 unit SQ AC-SUPPER 11/25/17 01/10/18 History [NovoLOG MIX 70-30 Flexpen] Ipratropium-Albuterol Nebulize 3 ml INHALATION RT-TID 11/25/17 01/10/18 History [Duoneb 0.5 mg-3 mg/3 ml Soln] Primacor 1mg/Ml 1 dose IV CONTINUOUS 11/25/17 01/10/18 History Tamsulosin HCl [Flomax] 0.4 mg PO DAILY 11/25/17 01/10/18 History glipiZIDE [Glucotrol] 5 mg PO AC-BID 11/25/17 01/10/18 History Amiodarone [Cordarone] 200 mg PO DAILY 12/23/17 01/10/18 History Bumetanide [BUMEX] 2 mg PO DAILY 12/23/17 01/10/18 History Allopurinol [Zyloprim] 100 mg PO DAILY 01/10/18 01/10/18 History Allergies Allergy/AdvReac Type Severity Reaction Status Date / Time No Known Allergies Allergy Verified 01/10/18 18:39 Physical Exam Vitals: Vital Signs Temp Pulse Pulse Resp BP Pulse Ox 01/12/18 13:57 76 01/12/18 13:48 76 01/12/18 08:00 98.6 F 79 18 105/59 96 01/12/18 07:20 72 01/12/18 07:09 68 01/12/18 04:00 98.5 F 70 18 99/62 97 01/12/18 00:00 98.0 F 71 18 105/59 98 01/11/18 20:00 98.2 F 65 18 106/57 98 01/11/18 19:33 88 01/11/18 19:20 88 01/11/18 16:00 97.4 F L 74 18 94/55 98 Intake and Output 01/12/18 01/12/18 01/12/18 06:59 14:59 22:59 Intake Total 92.169 329.397 Output Total 400 200 Balance -307.831 129.397 Intake: Intake, IV Titration 92.169 89.397 Amount Milrinone-D5w Pmx 20 mg 92.169 89.397 In Dextrose/Water 1 100ml .bag @ 23.1 MCG/MIN 6.93 mls/hr IV .[id number] [facility] Rx #:[id number] Oral 240 Output: Urine 400 200 Stool 0 Other: # Voids 1 # Bowel Movements 0 Weight 82.6 kg General appearance: The patient is alert, oriented, in no acute distress. HET: Head is normocephalic and atraumatic. Pupils are equal and reactive. Oropharynx is clear without lesions. Neck: Supple without lymphadenopathy. Trachea midline. Heart: S1 S2. Regular rate and rhythm. Lungs: No crackles or wheezes are heard. Abdomen: Soft, nontender, nondistended with bowel sounds. No peritoneal signs. No palpable organomegaly or masses. Extremities: Normal skin color and turgor. No cyanosis, rash, ulceration, clubbing, or edema. Radial and pedal pulses are 2/4 bilaterally. Neurological: No focal deficits. Strength and sensation are grossly intact. Results CBC & Chem 7: 01/13/18 06:12 01/13/18 06:12 Labs: Abnormal Lab Results - Last 24 Hours (Table) 01/11/18 01/11/18 01/11/18 Range/Units 06:00 16:49 21:06 RBC (4.30-5.90) m/uL Hgb (13.0-17.5) gm/dL Hct (39.0-53.0) % BUN (9-20) mg/dL Creatinine (0.66-1.25) mg/dL POC Glucose (mg/dL) 189 H 144 H (75-99) mg/dL Calcium (8.4-10.2) mg/dL Iron 25 L (65-175) ug/dL TIBC 223 L (228-460) ug/dL Iron Saturation 11.21 L (15.00-50.00) 01/12/18 01/12/18 01/12/18 Range/Units 06:00 06:30 06:30 RBC 2.37 L (4.30-5.90) m/uL Hgb 7.6 L D (13.0-17.5) gm/dL Hct 23.6 L (39.0-53.0) % BUN 44 H (9-20) mg/dL Creatinine 1.90 H (0.66-1.25) mg/dL POC Glucose (mg/dL) 122 H (75-99) mg/dL Calcium 8.1 L (8.4-10.2) mg/dL Iron (65-175) ug/dL TIBC (228-460) ug/dL Iron Saturation (15.00-50.00) 01/12/18 01/12/18 Range/Units 11:32 12:15 RBC 3.18 L (4.30-5.90) m/uL Hgb 10.2 L (13.0-17.5) gm/dL Hct 31.4 L (39.0-53.0) % BUN (9-20) mg/dL Creatinine (0.66-1.25) mg/dL POC Glucose (mg/dL) 275 H (75-99) mg/dL Calcium (8.4-10.2) mg/dL Iron (65-175) ug/dL TIBC (228-460) ug/dL Iron Saturation (15.00-50.00) Assessment and Plan (1) Anemia Narrative/Plan: Acute on chronic anemia multifactorial suspect a component secondary to chronic kidney stage III disease however component of acute blood loss anemia cannot be entirely excluded even though clinically without overt signs of GI bleeding. Present hemoglobin is 10.2. Iron indices reviewed not overly convincing of iron deficiency. Current Visit: Yes Status: Acute Code(s): D64.9 - ANEMIA, UNSPECIFIED SNOMED Code(s): 305515108 (2) Congestive heart failure Current Visit: Yes Status: Chronic Code(s): I50.9 - HEART FAILURE, UNSPECIFIED SNOMED Code(s): 06156217 Plan: 1. Discussion was held at bedside with patient and family at this time patient he is requesting conservative measures unless he develops hematemesis hematochezia or melena. Stool occult blood requested. 2. CBC monitoring. Agree with iron supplementation. We'll follow closely with you. Thank you for this kind referral and the opportunity to participate in the care of your patient. This consultation was discussed with Dr. Rosenthal. The impression and plan of care have been directed as dictated.
--- NOTE | 2018-01-12 15:59 | P.PN ---
Subjective Progress Note Date: 01/12/18 This is a pleasant 82-year-old gentleman who follows regularly with Dr. Arredondo in the office, he also follows with Dr. Jessica Silveira at the heart failure center at [facility]. 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 According to the patient, he had spent one week in the hospital at [facility], he states that he had not ambulated well there, on discharge home he was progressively more and more weak, also dates that he was experiencing exertional shortness of breath. Patient also states that his socks were getting tight, he had more edema than his usual in his feet and legs as well as abdominal area. For the above reasons patient came to the hospital for further evaluation. EKG on arrival here showed a normal sinus rhythm with non-specific ST-T wave changes. Chest x-ray did not reveal any active cardiopulmonary disease. Blood pressure 94/50, heart rate in the 80s, afebrile, 98% on room air. Lab data was reviewed, white blood cell count is normal. Hemoglobin on admission 8.0, 9.6 this morning. Sodium 138, potassium 4.0, BUN 47, creatinine 2.1. Troponin at 0.36. BNP level 7000. TSH normal. Patient states he has not had any black stool or blood in his stool. 01/12/2018 Patient seen and examined this morning, feeling significantly better overall. Weight is down 1 kg today, diuresed well through the night last night. Blood pressure 124/60 with a heart rate in the 70s, 96% on room air. Hemoglobin 10.2 today. BUN 44, creatinine 1.9. Objective - Vital Signs Vital signs: Vital Signs Temp 98.1 F 01/12/18 12:00 Pulse 76 01/12/18 13:57 Resp 18 01/12/18 12:00 BP 124/68 01/12/18 12:00 Pulse Ox 96 01/12/18 12:00 Intake & Output 01/11/18 01/12/18 01/12/18 18:59 06:59 18:59 Intake Total 716 92.169 329.397 Output Total 0 400 200 Balance 716 -307.831 129.397 Weight 83.6 kg 82.6 kg Intake: Intake, IV Titration 92.169 89.397 Amount Milrinone-D5w Pmx 20 mg 92.169 89.397 In Dextrose/Water 1 100ml .bag @ 23.1 MCG/MIN 6.93 mls/hr IV .[id number] [facility] Rx #:[id number] Oral 716 240 Output: Urine 0 400 200 Stool 0 0 Other: Voiding Method Toilet # Voids 0 1 # Bowel Movements 0 0 - Exam PHYSICAL EXAMINATION: HEENT: Head is atraumatic, normocephalic. Pupils equal, round. Neck is supple. There is no elevated jugular venous pressure. HEART EXAMINATION: Heart S1, S2 normal. No murmur or gallop heard. CHEST EXAMINATION: Lungs are clear to auscultation and precussion. No chest wall tenderness is noted on palpation or with deep breathing. ABDOMEN: Soft, nontender. Bowel sounds are heard. No organomegaly noted. EXTREMITIES: 2+ peripheral pulses with no evidence of peripheral edema and no calf tenderness noted. NEUROLOGIC patient is awake, alert and oriented -3. - Labs CBC & Chem 7: 01/12/18 12:15 01/12/18 06:30 Labs: Abnormal Lab Results - Last 24 Hours (Table) 01/11/18 01/11/18 01/11/18 Range/Units 06:00 16:49 21:06 RBC (4.30-5.90) m/uL Hgb (13.0-17.5) gm/dL Hct (39.0-53.0) % BUN (9-20) mg/dL Creatinine (0.66-1.25) mg/dL POC Glucose (mg/dL) 189 H 144 H (75-99) mg/dL Calcium (8.4-10.2) mg/dL Iron 25 L (65-175) ug/dL TIBC 223 L (228-460) ug/dL Iron Saturation 11.21 L (15.00-50.00) 01/12/18 01/12/18 01/12/18 Range/Units 06:00 06:30 06:30 RBC 2.37 L (4.30-5.90) m/uL Hgb 7.6 L D (13.0-17.5) gm/dL Hct 23.6 L (39.0-53.0) % BUN 44 H (9-20) mg/dL Creatinine 1.90 H (0.66-1.25) mg/dL POC Glucose (mg/dL) 122 H (75-99) mg/dL Calcium 8.1 L (8.4-10.2) mg/dL Iron (65-175) ug/dL TIBC (228-460) ug/dL Iron Saturation (15.00-50.00) 01/12/18 01/12/18 Range/Units 11:32 12:15 RBC 3.18 L (4.30-5.90) m/uL Hgb 10.2 L (13.0-17.5) gm/dL Hct 31.4 L (39.0-53.0) % BUN (9-20) mg/dL Creatinine (0.66-1.25) mg/dL POC Glucose (mg/dL) 275 H (75-99) mg/dL Calcium (8.4-10.2) mg/dL Iron (65-175) ug/dL TIBC (228-460) ug/dL Iron Saturation (15.00-50.00) Assessment and Plan Plan: Assessment and plan #1 symptoms of progressively worsening shortness of breath and associated weakness, likely combination of congestive heart failure and anemia. #2 anemia #3 cardiac amyloidosis with restrictive cardiomyopathy #4 acute on chronic chronic congestive heart failure on milrinone therapy #5 diabetes #6 stage III chronic kidney disease #7 hypertension Plan Echocardiogram with Doppler study was performed which revealed an ejection fraction of 50-55%. Patient diuresed well over on IV Lasix, we'll continue current dose of IV Lasix, check lytes BUN and creatinine in the morning. DNP note has been reviewed, I agree with a documented findings and plan of care. Patient was seen and examined.
[2018-01-12 16:32] LABS: Iron Saturation 10.44 (15.00-50.00)
[2018-01-12 16:43] LABS: Glucose,Whole Blood 190 mg/dL (75-99)
[2018-01-12] MEDS: INSULN ASP PRT/INSULIN ASPART 100 UNIT/ML 10 ML VIAL SQ SCH (17:39)
[2018-01-12] MEDS: PANTOPRAZOLE 40 MG TABLET PO SCH (17:39)
[2018-01-12 21:00] LABS: Glucose,Whole Blood 67 mg/dL (75-99)
[2018-01-12 21:27] LABS: Glucose,Whole Blood 54 mg/dL (75-99)
[2018-01-12] MEDS ORDERED: DEXTROSE 50%-WATER 50 ML SYRINGE IVP ONE (21:59)
[2018-01-12 22:07] LABS: Glucose,Whole Blood 65 mg/dL (75-99)
[2018-01-12 22:32] LABS: Glucose,Whole Blood 148 mg/dL (75-99)
[2018-01-13 05:46] LABS: Glucose,Whole Blood 87 mg/dL (75-99)
[2018-01-13] MEDS: MILRINONE-D5W PMX 20 MG in DEXTROSE/WATER 1 100ML.BAG IV SCH (06:27)
[2018-01-13] MEDS: glipiZIDE 5 MG TAB PO SCH (06:28)
[2018-01-13] MEDS: PANTOPRAZOLE 40 MG TABLET PO SCH (06:28)
[2018-01-13 06:33] LABS: HCT 30.3 % (39.0-53.0); MCH 32.1 pg (25.0-35.0); MCV 97.3 fL (80.0-100.0); Mean Platelet Volume 7.4; Platelet Count 260 k/uL (150-450); RBC 3.11 m/uL (4.30-5.90); RDW 14.4 % (11.5-15.5); WBC 5.7 k/uL (3.8-10.6)
[2018-01-13 06:45] LABS: Calcium 9.3 mg/dL (8.4-10.2)
--- NOTE | 2018-01-13 08:06 | P.PN ---
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 Patient presented with weakness and shortness of breath. Increase fluid retention and decreased urination. Patient does have chronic kidney disease. Diabetes. History of hypertension. On this admission he was found to be more anemic than usual. On questioning though patient states the blood was drawn from his IV port at times. Today he states he feels better. He denies any abdominal pain or nausea vomiting. No melena. He is up walking to the bathroom this morning. Vital signs blood temperature 98.8 with a pulse of 75 and respirations 18. Blood pressure 112/59 and he is 98% saturated. He was on CPAP. Lung and heart clear and regular. No unusual edema. No focal neurological deficits. Laboratory Hemoglobin this morning is 10.0. Electrolytes are unremarkable. BUN is 43 with creatinine of 2.0 given him a GFR of 35. Blood sugar 73. Calcium and magnesium are normal. Echocardiogram reveals an ejection fraction of 50-55% with severe left ventricular hypertrophy. Impressions and plans The patient with the problems as stated above. Appears to be better controlled on present medications. GI consult regarded but in light of hemoglobin of 10.0 do not feel further GI workup indicated in this patient at this time. Anticipate discharge to home today if okay with cardiology and nephrology. We will see what medications they want on discharge and follow-up. Patient does have home nursing follow-up on a regular basis. He will continue with his IV milrinone. He will be seen in my office next week.
[2018-01-13] MEDS: IPRATROPIUM-ALBUTEROL 3 ML NEB INHALATION SCH (08:54)
[2018-01-13] MEDS: TAMSULOSIN 0.4 MG CAP.ER.24H PO SCH (08:59)
[2018-01-13] MEDS: FUROSEMIDE 10 MG/ML 4 ML VIAL IV SCH (08:59)
[2018-01-13] MEDS: AMIODARONE 100 MG TAB PO SCH (08:59)
[2018-01-13] MEDS: ALLOPURINOL 100 MG TAB PO SCH (08:59)
[2018-01-13] MEDS: GABAPENTIN 100 MG CAP PO SCH (08:59)
[2018-01-13] MEDS ORDERED: ASPIRIN 81 MG PO SCH (09:00)
[2018-01-13] MEDS ORDERED: SODIUM FERRIC GLUCONAT-SUCROSE 125 MG in SODIUM CHLORIDE 0.9% 100 ML IVPB ONE (09:19)
--- NOTE | 2018-01-13 09:20 | P.PN ---
Subjective Patient is seen in follow-up for acute kidney injury on chronic kidney disease. 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 Creatinine was 2.37 this admission and is stable at 2.0 today. He is maintained on Primacor drip as well as IV Lasix 40 mg twice daily. Edema has resolved. Denies any chest pain or shortness of breath. He is eager to go home. Vital signs are stable. General: The patient appeared well nourished and normally developed. HEENT: Head exam is unremarkable. Neck is without jugular venous distension. LUNGS: Lungs are clear to auscultation and percussion. Breath sounds decreased. HEART: Rate and Rhythm are regular. First and second heart sounds normal. No murmurs, rubs or gallops. ABDOMEN: Abdominal exam reveals normal bowel sounds. Non-tender and non- distended. No evidence of peritonitis. EXTREMITITES: No clubbing, cyanosis, or edema. Objective - Vital Signs Vital signs: Vital Signs Temp 98.8 F 01/13/18 04:00 Pulse 76 01/13/18 09:07 Resp 18 01/13/18 04:00 BP 112/59 01/13/18 04:00 Pulse Ox 98 01/13/18 04:00 Intake & Output 01/12/18 01/13/18 01/13/18 18:59 06:59 18:59 Intake Total 809.397 180 Output Total 800 300 Balance 9.397 -300 180 Weight 82.7 kg Intake: Intake, IV Titration 89.397 Amount Milrinone-D5w Pmx 20 mg 89.397 In Dextrose/Water 1 100ml .bag @ 23.1 MCG/MIN 6.93 mls/hr IV .[id number] [facility] Rx #:[id number] Oral 720 180 Output: Urine 800 300 Stool 0 Other: Voiding Method Toilet Toilet # Voids 2 1 # Bowel Movements 0 - Labs CBC & Chem 7: 01/13/18 06:12 01/13/18 06:12 Labs: Abnormal Lab Results - Last 24 Hours (Table) 01/12/18 01/12/18 01/12/18 Range/Units 06:30 11:32 12:15 RBC 3.18 L (4.30-5.90) m/uL Hgb 10.2 L (13.0-17.5) gm/dL Hct 31.4 L (39.0-53.0) % BUN (9-20) mg/dL Creatinine (0.66-1.25) mg/dL Glucose (74-99) mg/dL POC Glucose (mg/dL) 275 H (75-99) mg/dL Iron 26 L (65-175) ug/dL Iron Saturation 10.44 L (15.00-50.00) 01/12/18 01/12/18 01/12/18 Range/Units 16:42 20:59 21:26 RBC (4.30-5.90) m/uL Hgb (13.0-17.5) gm/dL Hct (39.0-53.0) % BUN (9-20) mg/dL Creatinine (0.66-1.25) mg/dL Glucose (74-99) mg/dL POC Glucose (mg/dL) 190 H 67 L 54 L (75-99) mg/dL Iron (65-175) ug/dL Iron Saturation (15.00-50.00) 01/12/18 01/12/18 01/13/18 Range/Units 21:55 22:21 06:12 RBC (4.30-5.90) m/uL Hgb (13.0-17.5) gm/dL Hct (39.0-53.0) % BUN 43 H (9-20) mg/dL Creatinine 2.00 H (0.66-1.25) mg/dL Glucose 73 L (74-99) mg/dL POC Glucose (mg/dL) 65 L 148 H (75-99) mg/dL Iron (65-175) ug/dL Iron Saturation (15.00-50.00) 01/13/18 Range/Units 06:12 RBC 3.11 L (4.30-5.90) m/uL Hgb 10.0 L (13.0-17.5) gm/dL Hct 30.3 L (39.0-53.0) % BUN (9-20) mg/dL Creatinine (0.66-1.25) mg/dL Glucose (74-99) mg/dL POC Glucose (mg/dL) (75-99) mg/dL Iron (65-175) ug/dL Iron Saturation (15.00-50.00) Assessment and Plan Plan: Assessment: #1. Nonoliguric acute kidney injury mostly prerenal secondary to cardiorenal syndrome. Creatinine was 2.37 on admission and was down to 1.9 yesterday - 2.0 today. Urinalysis is quite benign. #2. Chronic kidney disease stage III secondary to cardiorenal syndrome at baseline creatinine in the range of 1.2-1.4. #3. Cardiac amyloidosis with restrictive cardiomyopathy. #4. Fluid overload. Improved. #5. Anemia of chronic kidney disease. Iron deficiency noted. #6. Diabetes mellitus. Plan: I will change Lasix to 40 mg orally twice daily. Ferrlecit 125 mg IV once today. Continue with Primacor. Low-salt diet. 1.5 L fluid restriction. Maintain Aranesp. Stable to be discharged home from nephrology standpoint. He really to get a basic metabolic panel checked within 2-3 days of discharge and follow-up as an outpatient in the next 1-2 weeks. I advised him to follow a low-salt diet and to maintain a 50-60 ounces of fluid restriction daily.
--- NOTE | 2018-01-13 10:31 | PN ---
PROGRESS NOTE Mr. Jacob is an 82-year-old male with history of obstructive cardiomyopathy on Milrinone drip who presented with symptoms of significant dyspnea. He is feeling better today. His energy is better. His breathing is better. He has been ambulating without much difficulty. He denies any dizziness, palpitation. He denies any nausea. He is continued on Milrinone drip, amiodarone 100 mg daily, aspirin once a day, Lasix 40 mg twice a day, Glipizide. PHYSICAL EXAMINATION: Blood pressure 112/59 with a heart rate in 70s. LUNGS: No wheezes with few crackles at the bases. HEART: Regular rate and rhythm, S1, S2. No S3. No rub. ABDOMEN: Soft, nontender. EXTREMITIES: No edema. LAB DATA: Revealed BUN and creatinine 43 and 2.0, potassium 4.0, hemoglobin of 10. IMPRESSION: 1. History of congestive heart failure with recent deterioration, improving. 2. Chronic Milrinone drip. 3. Drip x30. 4. Renal failure. 5. Diabetes mellitus. 6. Anemia. RECOMMENDATION: From the cardiac standpoint, he should be able to be discharged home today and followed as an outpatient with Dr. Arredondo. MMODL / IJN: [id number] /
--- NOTE | 2018-01-13 10:57 | P.PN ---
Subjective Progress Note Date: 01/13/18 Ambulating in the hallway with assist. Denies hematemesis hematochezia melena. Hemoglobin stable at 10. Anticipating discharged today. Denies abdominal pain. Objective - Vital Signs Vital signs: Vital Signs Temp 98.8 F 01/13/18 04:00 Pulse 76 01/13/18 09:07 Resp 18 01/13/18 04:00 BP 112/59 01/13/18 04:00 Pulse Ox 98 01/13/18 04:00 Intake & Output 01/12/18 01/13/18 01/13/18 18:59 06:59 18:59 Intake Total 809.397 180 Output Total 800 300 Balance 9.397 -300 180 Weight 82.7 kg Intake: Intake, IV Titration 89.397 Amount Milrinone-D5w Pmx 20 mg 89.397 In Dextrose/Water 1 100ml .bag @ 23.1 MCG/MIN 6.93 mls/hr IV .[id number] [facility] Rx #:[id number] Oral 720 180 Output: Urine 800 300 Stool 0 Other: Voiding Method Toilet Toilet # Voids 2 1 # Bowel Movements 0 - Exam General appearance: The patient is alert, oriented, in no acute distress. HET: Head is normocephalic and atraumatic. Pupils are equal and reactive. Oropharynx is clear without lesions. Neck: Supple without lymphadenopathy. Trachea midline. Heart: S1 S2. Regular rate and rhythm. Lungs: No crackles or wheezes are heard. Abdomen: Soft, nontender, nondistended with bowel sounds. No peritoneal signs. No palpable organomegaly or masses. Extremities: Normal skin color and turgor. No cyanosis, rash, ulceration, clubbing, or edema. Radial and pedal pulses are 2/4 bilaterally. Neurological: No focal deficits. Strength and sensation are grossly intact. - Labs CBC & Chem 7: 01/13/18 06:12 01/13/18 06:12 Labs: Abnormal Lab Results - Last 24 Hours (Table) 01/12/18 01/12/18 01/12/18 Range/Units 06:30 11:32 12:15 RBC 3.18 L (4.30-5.90) m/uL Hgb 10.2 L (13.0-17.5) gm/dL Hct 31.4 L (39.0-53.0) % BUN (9-20) mg/dL Creatinine (0.66-1.25) mg/dL Glucose (74-99) mg/dL POC Glucose (mg/dL) 275 H (75-99) mg/dL Iron 26 L (65-175) ug/dL Iron Saturation 10.44 L (15.00-50.00) 01/12/18 01/12/18 01/12/18 Range/Units 16:42 20:59 21:26 RBC (4.30-5.90) m/uL Hgb (13.0-17.5) gm/dL Hct (39.0-53.0) % BUN (9-20) mg/dL Creatinine (0.66-1.25) mg/dL Glucose (74-99) mg/dL POC Glucose (mg/dL) 190 H 67 L 54 L (75-99) mg/dL Iron (65-175) ug/dL Iron Saturation (15.00-50.00) 01/12/18 01/12/18 01/13/18 Range/Units 21:55 22:21 06:12 RBC (4.30-5.90) m/uL Hgb (13.0-17.5) gm/dL Hct (39.0-53.0) % BUN 43 H (9-20) mg/dL Creatinine 2.00 H (0.66-1.25) mg/dL Glucose 73 L (74-99) mg/dL POC Glucose (mg/dL) 65 L 148 H (75-99) mg/dL Iron (65-175) ug/dL Iron Saturation (15.00-50.00) 01/13/18 Range/Units 06:12 RBC 3.11 L (4.30-5.90) m/uL Hgb 10.0 L (13.0-17.5) gm/dL Hct 30.3 L (39.0-53.0) % BUN (9-20) mg/dL Creatinine (0.66-1.25) mg/dL Glucose (74-99) mg/dL POC Glucose (mg/dL) (75-99) mg/dL Iron (65-175) ug/dL Iron Saturation (15.00-50.00) Assessment and Plan (1) Anemia Narrative/Plan: Acute on chronic anemia multifactorial suspect a component secondary to chronic kidney stage III disease however component of acute blood loss anemia cannot be entirely excluded even though clinically without overt signs of GI bleeding. Present hemoglobin is 10.0. Current Visit: Yes Status: Acute Code(s): D64.9 - ANEMIA, UNSPECIFIED SNOMED Code(s): 374787606 (2) Congestive heart failure Current Visit: Yes Status: Chronic Code(s): I50.9 - HEART FAILURE, UNSPECIFIED SNOMED Code(s): 30238067 Plan: 1. DC per medicine and cardiology. No active GI bleed. Hemoglobin stable. No further workup at this time. We'll follow as needed. Assessment and plan a care discussed with Dr. Gardner
[2018-01-13] MEDS: FERROUS SULFATE 325 MG TAB PO SCH (11:54)
[2018-01-13 12:35] VITALS: BP 125/67; PULSE 87; TEMP 98.2
--- NOTE | 2018-01-15 10:21 | P.DS ---
Providers Date of admission: 01/10/18 20:56 Attending physician: Walter Serrano Consults: 01/10/18 20:56 Consult Physician Routine Consulting Provider: Cardiology Naheed Consult Reason/Comments: CHF Do you want consulting provider notified?: Yes, Notify in am 01/12/18 08:04 Consult Physician Urgent Consulting Provider: Francia Currie Consult Reason/Comments: CKD with anemia and CHF Do you want consulting provider notified?: Yes Primary care physician: Walter Serrano The patient is an 82-year-old gentleman who has a history of underlying congestive heart failure. The patient is followed locally [facility] but is also seen by [facility] congestive heart failure center and is on IV milrinone. The patient has been having increasing shortness of breath at home. Difficult to ambulate and get up out of bed and move about his house. This prompted the patient to come to the emergency room. Patient's initial hemoglobin on presentation was 8.0. EKG did not show any definitive ST segment changes. His BNP was elevated up to 7000 though. And also his troponin was slightly elevated 0.364 The patient was admitted to the telemetry unit where he was seen by cardiology and nephrology. Also a subsequent hemoglobin dropped to 7.6 and he was seen by gastroenterology. Further laboratory values though showed resolution of the low hemoglobin level back up to the 10 range without transfusion therapy. Iron studies revealed a ferritin level of 269 and a percent saturation of 11.21. Renal studies continue to show a BUN of 47 with creatinine 2.17 giving him a GFR of 31. Thyroid studies were unremarkable with a normal TSH. An echocardiogram revealed a ejection fraction of 50-55% with severe concentric hypertrophy. Patient was placed on IV Lasix. Cardiology decreases amiodarone 200 mg. Chest x-ray showed no definite new changes and monitor pattern was generally stable. The plans are to discharge to home. Medications Lasix 40 mg twice a day. Albuterol inhaler 2 puffs 4 times a day as needed. Allopurinol 100 mg daily Amiodarone to be decreased to 100 mg a day. Aspirin 81 mg daily Colace 100 mg as needed Neurontin 100 mg twice a day NovoLog Mix 70/30 12 units before supper. Respiratory treatments with DuoNeb 0.5 g-3 mg per 3 mL up to 4 times a day. Primacor continuous infusion Tamsulosin 0.4 mg daily Glucotrol 5 mg twice a day. He will stop taking his Bumex. 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 Chronic kidney disease stage III History of previous tobacco use and COPD Hypertension Type 2 diabetes History of gout Polyosteoarthritis Diabetic neuropathy BPH He will continue diet as tolerated. Activities as tolerated. He has home visiting nurses for his infusion therapy. Follow-up with cardiology and congestive heart failure clinic. Office follow-up over the next 7 days. He will call if any questions, concerns or problems. Patient Condition at Discharge: Stable Plan - Discharge Summary Discharge Rx Participant: No New Discharge Prescriptions: New Furosemide [Lasix] 40 mg PO 0800,1600 #60 tablet Discontinued Bumetanide [BUMEX] 2 mg PO DAILY No Action Albuterol Inhaler [Ventolin Hfa Inhaler] 2 puff INHALATION RT-QID PRN PRN Reason: Shortness Of Breath Aspirin EC [Ecotrin Low Dose] 81 mg PO DAILY Docusate [Colace] 100 mg PO DAILY PRN PRN Reason: Constipation Gabapentin [Neurontin] 100 mg PO BID glipiZIDE [Glucotrol] 5 mg PO AC-BID Insulin Aspart Protam & Aspart [NovoLOG MIX 70-30 Flexpen] 12 unit SQ AC- SUPPER Ipratropium-Albuterol Nebulize [Duoneb 0.5 mg-3 mg/3 ml Soln] 3 ml INHALATION RT-TID Primacor 1mg/Ml 1 dose IV CONTINUOUS Tamsulosin HCl [Flomax] 0.4 mg PO DAILY Amiodarone [Cordarone] 200 mg PO DAILY Allopurinol [Zyloprim] 100 mg PO DAILY Discharge Medication List Albuterol Inhaler [Ventolin Hfa Inhaler] 2 puff INHALATION RT-QID PRN 11/25/17 [ History] Aspirin EC [Ecotrin Low Dose] 81 mg PO DAILY 11/25/17 [History] Docusate [Colace] 100 mg PO DAILY PRN 11/25/17 [History] Gabapentin [Neurontin] 100 mg PO BID 11/25/17 [History] Insulin Aspart Protam & Aspart [NovoLOG MIX 70-30 Flexpen] 12 unit SQ AC-SUPPER 11/25/17 [History] Ipratropium-Albuterol Nebulize [Duoneb 0.5 mg-3 mg/3 ml Soln] 3 ml INHALATION RT -TID 11/25/17 [History] Primacor 1mg/Ml 1 dose IV CONTINUOUS 11/25/17 [History] Tamsulosin HCl [Flomax] 0.4 mg PO DAILY 11/25/17 [History] glipiZIDE [Glucotrol] 5 mg PO AC-BID 11/25/17 [History] Amiodarone [Cordarone] 200 mg PO DAILY 12/23/17 [History] Allopurinol [Zyloprim] 100 mg PO DAILY 01/10/18 [History] Furosemide [Lasix] 40 mg PO 0800,1600 #60 tablet 01/13/18 [Rx] Follow up Appointment(s)/Referral(s): Juaquin Arredondo MD [STAFF PHYSICIAN] - As Needed (Patient has a scheduled appointment with Dr. Arredondo which he will keep) Walter Serrano MD [Primary Care Provider] - 01/18/18 10:00 am (Wednesday) Sloan Nye DO [STAFF PHYSICIAN] - 2 Weeks (Spoke to receptionist clerk. Office will call with appointment time.) Patient Instructions/Handouts: Heart Failure (DC), Low Sodium Diet (GEN), Fluid Restriction (DC) Activity/Diet/Wound Care/Special Instructions: 50-60 oz fluid daily restriction per Dr. Nye [facility] - [phone] Discharge Disposition: HOME SELF-CARE
== END 2018-01-13 12:45 | disposition home health service (06) | DRG 291 ==
LOC: EC 17:33 → 6SEL 20:56
PROVIDERS: ADMIT Internal Medicine; ATTEND Internal Medicine
DX: I13.0 Hypertensive heart and chronic kidney disease with heart failure and stage 1 through stage 4 chronic kidney disease, or unspecified chronic kidney disease (principal); I50.43 Acute on chronic combined systolic (congestive) and diastolic (congestive) heart failure; I47.2 Ventricular tachycardia; N17.9 Acute kidney failure, unspecified; E85.4 Organ-limited amyloidosis; E11.22 Type 2 diabetes mellitus with diabetic chronic kidney disease; E11.40 Type 2 diabetes mellitus with diabetic neuropathy, unspecified; D62 Acute posthemorrhagic anemia; I50.84 End stage heart failure; J44.9 Chronic obstructive pulmonary disease, unspecified; I42.5 Other restrictive cardiomyopathy; N18.3 Chronic kidney disease, stage 3 (moderate); I43 Cardiomyopathy in diseases classified elsewhere; D63.1 Anemia in chronic kidney disease; M10.9 Gout, unspecified; E78.5 Hyperlipidemia, unspecified; M15.0 Primary generalized (osteo)arthritis; N40.0 Benign prostatic hyperplasia without lower urinary tract symptoms; E61.1 Iron deficiency; Z79.82 Long term (current) use of aspirin; Z79.4 Long term (current) use of insulin; Z79.899 Other long term (current) drug therapy; Z98.1 Arthrodesis status; Z87.891 Personal history of nicotine dependence
CPT/HCPCS: 36415; 71046; 80048; 80053; 81003; 82553; 82728; 83540; 83550; 83735; 83880; 84439; 84443; 84484; 85025; 85027; 85610; 85652; 85730; 86140; 93005; 93306; 94640; 96374; 99285

== ENCOUNTER 2018-04-03 14:23 | Emergency (ER) | payer MEDICARE, BC, OTHER ==
[2018-04-03 15:17] VITALS: RESP 18; TEMP 97.9
--- NOTE | 2018-04-03 16:18 | ED ---
General Adult HPI - General Chief complaint: Recheck/Abnormal Lab/Rx Stated complaint: picc line coming out Time Seen by Provider: 04/03/18 15:47 Source: patient Mode of arrival: ambulatory Limitations: no limitations - History of Present Illness Initial comments: 82-year-old male residing with PICC line problem. Patient states the PICC was placed at [facility] in August. He has milrinone infusing through it. For the past week it has been coming out of place. Today his home nurse saw it and sent him to the ED for evaluation. - Related Data Home Medications Medication Instructions Recorded Confirmed Albuterol Inhaler [Ventolin Hfa 2 puff INHALATION RT-QID PRN 11/25/17 01/10/18 Inhaler] Aspirin EC [Ecotrin Low Dose] 81 mg PO DAILY 11/25/17 01/10/18 Docusate [Colace] 100 mg PO DAILY PRN 11/25/17 01/10/18 Gabapentin [Neurontin] 100 mg PO BID 11/25/17 01/10/18 Insulin Aspart Protam & Aspart 12 unit SQ AC-SUPPER 11/25/17 01/10/18 [NovoLOG MIX 70-30 Flexpen] Ipratropium-Albuterol Nebulize 3 ml INHALATION RT-TID 11/25/17 01/10/18 [Duoneb 0.5 mg-3 mg/3 ml Soln] Primacor 1mg/Ml 1 dose IV CONTINUOUS 11/25/17 01/10/18 Tamsulosin HCl [Flomax] 0.4 mg PO DAILY 11/25/17 01/10/18 glipiZIDE [Glucotrol] 5 mg PO AC-BID 11/25/17 01/10/18 Amiodarone [Cordarone] 200 mg PO DAILY 12/23/17 01/10/18 Allopurinol [Zyloprim] 100 mg PO DAILY 01/10/18 01/10/18 Previous Rx's Medication Instructions Recorded Furosemide [Lasix] 40 mg PO 0800,1600 #60 tablet 01/13/18 Allergies Allergy/AdvReac Type Severity Reaction Status Date / Time No Known Allergies Allergy Verified 04/03/18 15:17 Review of Systems ROS Statement: Those systems with pertinent positive or pertinent negative responses have been documented in the HPI. Review of Systems Constitutional: Denies fever, chills Eyes: Denies change in vision, Denies pain Ears, nose, mouth, throat: Denies headaches, Denies sore throat Cardiovascular: Denies chest pain. Denies palpitations Respiratory: Denies shortness of breath, Denies cough Gastrointestinal: Denies abdominal pain. Denies nausea, vomiting, diarrhea. Genitourinary: Denies hematuria, Denies infections Musculoskeletal: Denies pain, Denies swelling Integumentary: Denies rash Neurological: Denies headache, focal weakness, focal numbness Psychiatric: Denies anxiety, Denies depression Hematologic/Lymphatic: Denies easy bleeding or bruising ROS Other: All systems not noted in ROS Statement are negative. Past Medical History Past Medical History: Heart Failure, COPD, Diabetes Mellitus, Hypertension, Osteoarthritis (OA), Renal Disease Additional Past Medical History / Comment(s): Amlyodosis, Anemia History of Any Multi-Drug Resistant Organisms: None Reported Past Surgical History: Back Surgery Additional Past Surgical History / Comment(s): bilateral foot operation, right elbow , bilateral hand surgeries, cervical fusion rotator cuff Past Anesthesia/Blood Transfusion Reactions: No Reported Reaction Past Psychological History: No Psychological Hx Reported Smoking Status: Former smoker Past Alcohol Use History: None Reported Past Drug Use History: None Reported - Past Family History Father Family Medical History: Chest Pain / Angina General Exam - General Exam Comments Initial Comments: General: Awake, alert, No acute Distress HENT: Normocephalic. Atraumatic Eyes: PERRL. EOMI. No scleral icterus. No injected conjunctiva Neck: Full ROM Chest/Lungs: Clear to auscultation bilaterally. No wheezing, rhonchi, or rales Cardiac: Regular rate, rhythm. No murmurs or rubs Abdomen/GI: [Soft, nontender, nondistended. No rebound, guarding, or rigidity. Musculoskeletal: Full ROM. Left upper extremity PICC line with about 4 inches of line coming out of insertion site. No erythema. Skin: Warm, dry, intact Neurologic: A/Ox3, no weakness, no sensory deficit, no abnormal gait, no coordination deficit Limitations: no limitations Course Vital Signs 04/03/18 15:16 Temperature 97.9 F Pulse Rate 68 Respiratory 18 Rate Blood Pressure 98/56 O2 Sat by Pulse 100 Oximetry Medical Decision Making - Medical Decision Making 82-year-old male presenting with PICC line displacement. Initial exam the patient is awake, alert, no acute distress. VSS. There is about 4 inches of the patient's PICC line exposed. CXR shows it is moved about 6 inches compared to prior and is near the innominate vein. Patient's milrinone is still infusing. I spoke with Dr. Jacome who states to give a message with the PICC team to have it replaced tomorrow. A message was left with the patient's home and cell phone number. He is instructed to call his PCPs office in the morning as well.No further emergent workup indicated. The patient was given return to ED instructions. They were instructed to follow up with their primary care provider. Stable for discharge at this time. Disposition Clinical Impression: S/P PICC central line placement Disposition: HOME SELF-CARE Condition: Good Instructions: Peripherally Inserted Central Catheters and Midline Catheters (ED ) Additional Instructions: Call your primary care physician's office in the morning. Your seen in the emergency department because her PICC line is coming out. Told him he had a chest x-ray which showed that it was near the innominate vein and that Dr. Jacome was contacted who stated to have the PICC line changed on Wednesday. Let them know the ER physician, Dr. Nice, left a message for the PICC team Is patient prescribed a controlled substance at d/c from ED?: No
--- NOTE | 2018-04-03 17:07 | XR ---
EXAMINATION TYPE: XR chest 2V DATE OF EXAM: 04/03/2018 COMPARISON: Prior chest x-ray 01/10/2018 HISTORY: PICC line has pulled out TECHNIQUE: Frontal and lateral views of the chest are obtained. FINDINGS: PICC line shows the distal tip overlying the innominate vein. IMPRESSION: Suspect the PICC line has pulled back approximately 6 cm compared with prior exam but th e tip is within the innominate vein.
[2018-04-03 17:57] VITALS: BP 121/64; PULSE 67
== END 2018-04-03 17:57 | disposition home or self-care (01) ==
LOC: EC 14:23
DX: T82.528A Displacement of other cardiac and vascular devices and implants, initial encounter (principal); I11.0 Hypertensive heart disease with heart failure; I50.9 Heart failure, unspecified; J44.9 Chronic obstructive pulmonary disease, unspecified; E11.9 Type 2 diabetes mellitus without complications; M19.90 Unspecified osteoarthritis, unspecified site; Z87.891 Personal history of nicotine dependence; Z79.4 Long term (current) use of insulin; Z79.82 Long term (current) use of aspirin; Z79.899 Other long term (current) drug therapy; Z82.49 Family history of ischemic heart disease and other diseases of the circulatory system
CPT/HCPCS: 71046; 99283

== ENCOUNTER 2018-05-08 11:07 | Emergency (ER) | payer MEDICARE, BC, OTHER ==
--- NOTE | 2018-05-08 11:50 | ED ---
General Adult HPI - General Chief complaint: Recheck/Abnormal Lab/Rx Stated complaint: PALPATATIONS Time Seen by Provider: 05/08/18 11:45 Source: patient, RN notes reviewed, old records reviewed Mode of arrival: wheelchair Limitations: no limitations - History of Present Illness Initial comments: This is an 82-year-old male the ER for evaluation. Presents today for evaluation regarding occluded PICC line. Patient shows be treated medication for his heart. Unable to achieve medication times one week, patient unsure medication was stopped renal is at the medication amount and dispense has not change in the past week. - Related Data Home Medications Medication Instructions Recorded Confirmed Albuterol Inhaler [Ventolin Hfa 2 puff INHALATION RT-QID PRN 11/25/17 01/10/18 Inhaler] Aspirin EC [Ecotrin Low Dose] 81 mg PO DAILY 11/25/17 01/10/18 Docusate [Colace] 100 mg PO DAILY PRN 11/25/17 01/10/18 Gabapentin [Neurontin] 100 mg PO BID 11/25/17 01/10/18 Insulin Aspart Protam & Aspart 12 unit SQ AC-SUPPER 11/25/17 01/10/18 [NovoLOG MIX 70-30 Flexpen] Ipratropium-Albuterol Nebulize 3 ml INHALATION RT-TID 11/25/17 01/10/18 [Duoneb 0.5 mg-3 mg/3 ml Soln] Primacor 1mg/Ml 1 dose IV CONTINUOUS 11/25/17 01/10/18 Tamsulosin HCl [Flomax] 0.4 mg PO DAILY 11/25/17 01/10/18 glipiZIDE [Glucotrol] 5 mg PO AC-BID 11/25/17 01/10/18 Amiodarone [Cordarone] 200 mg PO DAILY 12/23/17 01/10/18 Allopurinol [Zyloprim] 100 mg PO DAILY 01/10/18 01/10/18 Previous Rx's Medication Instructions Recorded Furosemide [Lasix] 40 mg PO 0800,1600 #60 tablet 01/13/18 Allergies Allergy/AdvReac Type Severity Reaction Status Date / Time No Known Allergies Allergy Verified 05/08/18 11:19 Review of Systems ROS Statement: Those systems with pertinent positive or pertinent negative responses have been documented in the HPI. ROS Other: All systems not noted in ROS Statement are negative. Past Medical History Past Medical History: Heart Failure, COPD, Diabetes Mellitus, Hypertension, Osteoarthritis (OA), Renal Disease Additional Past Medical History / Comment(s): Amlyodosis, Anemia History of Any Multi-Drug Resistant Organisms: None Reported Past Surgical History: Back Surgery Additional Past Surgical History / Comment(s): bilateral foot operation, right elbow , bilateral hand surgeries, cervical fusion rotator cuff Past Anesthesia/Blood Transfusion Reactions: No Reported Reaction Past Psychological History: No Psychological Hx Reported Smoking Status: Former smoker Past Alcohol Use History: None Reported Past Drug Use History: None Reported - Past Family History Father Family Medical History: Chest Pain / Angina General Exam Limitations: no limitations General appearance: alert, in no apparent distress Head exam: Present: atraumatic, normocephalic, normal inspection Eye exam: Present: normal appearance, PERRL, EOMI. Absent: scleral icterus, conjunctival injection, periorbital swelling ENT exam: Present: normal exam, mucous membranes moist Neck exam: Present: normal inspection. Absent: tenderness, meningismus, lymphadenopathy Respiratory exam: Present: normal lung sounds bilaterally. Absent: respiratory distress, wheezes, rales, rhonchi, stridor Cardiovascular Exam: Present: regular rate, normal rhythm, normal heart sounds. Absent: systolic murmur, diastolic murmur, rubs, gallop, clicks GI/Abdominal exam: Present: soft, normal bowel sounds. Absent: distended, tenderness, guarding, rebound, rigid Extremities exam: Present: normal inspection, full ROM, normal capillary refill. Absent: tenderness, pedal edema, joint swelling, calf tenderness Back exam: Present: normal inspection Neurological exam: Present: alert, oriented X3, CN II-XII intact Psychiatric exam: Present: normal affect, normal mood Skin exam: Present: warm, dry, intact, normal color. Absent: rash Course Vital Signs 05/08/18 05/08/18 05/08/18 11:13 12:46 13:45 Temperature 97.9 F 97.1 F L Pulse Rate 64 58 L Respiratory 18 16 16 Rate Blood Pressure 114/70 119/75 O2 Sat by Pulse 97 100 Oximetry EKG Findings - EKG Comments: EKG Findings:: EKG shows sinus rhythm rate of 63, GA 220, QRS 98, QTC 595 Medical Decision Making - Medical Decision Making 79 female the occluded PICC line, PICC line was able to flushed here in the ER significant improvement currently. Patient is asymptomatic and can be discharged home Disposition Clinical Impression: Occluded PICC line Disposition: HOME SELF-CARE Condition: Good Instructions: Peripherally Inserted Central Catheters and Midline Catheters (ED ) Is patient prescribed a controlled substance at d/c from ED?: No Referrals: Walter Serrano MD [Primary Care Provider] - 1-2 days
[2018-05-08] MEDS ORDERED: ALTEPLASE 2 MG VIAL (CATHFLO) IV STA (12:05)
[2018-05-08 12:47] VITALS: BP 119/75; PULSE 58; RESP 16; TEMP 97.1
[2018-05-08] MEDS ORDERED: POTASSIUM BICARBONATE/CIT AC 20 MEQ TABLET.EFF PO ONE (13:26)
== END 2018-05-08 13:50 | disposition home or self-care (01) ==
LOC: EC 11:07
DX: T82.594A Other mechanical complication of infusion catheter, initial encounter (principal); J44.9 Chronic obstructive pulmonary disease, unspecified; I11.0 Hypertensive heart disease with heart failure; I50.9 Heart failure, unspecified; E11.9 Type 2 diabetes mellitus without complications; M19.90 Unspecified osteoarthritis, unspecified site; Z87.891 Personal history of nicotine dependence; Z79.4 Long term (current) use of insulin; Z79.82 Long term (current) use of aspirin; Z79.899 Other long term (current) drug therapy
CPT/HCPCS: 93005; 99285; 96374; J2997

== ENCOUNTER 2018-06-19 13:01 | Emergency (ER) | payer MEDICARE, BC, OTHER ==
[2018-06-19 13:15] VITALS: RESP 18
--- NOTE | 2018-06-19 15:16 | ED ---
General Adult HPI - General Chief complaint: Recheck/Abnormal Lab/Rx Stated complaint: Picc line issues Time Seen by Provider: 06/19/18 14:02 Source: patient, RN notes reviewed Mode of arrival: wheelchair Limitations: no limitations - History of Present Illness Initial comments: 82-year-old male with a past medical history of heart failure, COPD, diabetes, hypertension presents to the emergency department for a chief complaint of "clogged PICC line." He states he has milrinone infusing for heart failure treatment and that seems to be working well. Patient states that he has not been able to draw blood off of his PICC line for about one week now. Patient denies any pain in the left upper extremity. He denies any redness or swelling noted. Patient has no other complaints at this time including shortness of breath, chest pain, abdominal pain, nausea or vomiting, headache, or visual changes. - Related Data Home Medications Medication Instructions Recorded Confirmed Albuterol Inhaler [Ventolin Hfa 2 puff INHALATION RT-QID PRN 11/25/17 01/10/18 Inhaler] Aspirin EC [Ecotrin Low Dose] 81 mg PO DAILY 11/25/17 01/10/18 Docusate [Colace] 100 mg PO DAILY PRN 11/25/17 01/10/18 Gabapentin [Neurontin] 100 mg PO BID 11/25/17 01/10/18 Insulin Aspart Protam & Aspart 12 unit SQ AC-SUPPER 11/25/17 01/10/18 [NovoLOG MIX 70-30 Flexpen] Ipratropium-Albuterol Nebulize 3 ml INHALATION RT-TID 11/25/17 01/10/18 [Duoneb 0.5 mg-3 mg/3 ml Soln] Primacor 1mg/Ml 1 dose IV CONTINUOUS 11/25/17 01/10/18 Tamsulosin HCl [Flomax] 0.4 mg PO DAILY 11/25/17 01/10/18 glipiZIDE [Glucotrol] 5 mg PO AC-BID 11/25/17 01/10/18 Amiodarone [Cordarone] 200 mg PO DAILY 12/23/17 01/10/18 Allopurinol [Zyloprim] 100 mg PO DAILY 01/10/18 01/10/18 Previous Rx's Medication Instructions Recorded Furosemide [Lasix] 40 mg PO 0800,1600 #60 tablet 01/13/18 Allergies Allergy/AdvReac Type Severity Reaction Status Date / Time No Known Allergies Allergy Verified 06/19/18 13:16 Review of Systems ROS Statement: Those systems with pertinent positive or pertinent negative responses have been documented in the HPI. ROS Other: All systems not noted in ROS Statement are negative. Past Medical History Past Medical History: Heart Failure, COPD, Diabetes Mellitus, Hypertension, Osteoarthritis (OA), Renal Disease Additional Past Medical History / Comment(s): Amlyodosis, Anemia History of Any Multi-Drug Resistant Organisms: None Reported Past Surgical History: Back Surgery Additional Past Surgical History / Comment(s): bilateral foot operation, right elbow , bilateral hand surgeries, cervical fusion rotator cuff Past Anesthesia/Blood Transfusion Reactions: No Reported Reaction Past Psychological History: No Psychological Hx Reported Smoking Status: Former smoker Past Alcohol Use History: None Reported Past Drug Use History: None Reported - Past Family History Father Family Medical History: Chest Pain / Angina General Exam Limitations: no limitations General appearance: alert, in no apparent distress Head exam: Present: atraumatic, normocephalic, normal inspection Eye exam: Present: normal appearance, PERRL, EOMI. Absent: scleral icterus, conjunctival injection, periorbital swelling ENT exam: Present: normal exam, mucous membranes moist Neck exam: Present: normal inspection. Absent: tenderness, meningismus, lymphadenopathy Respiratory exam: Present: normal lung sounds bilaterally. Absent: respiratory distress, wheezes, rales, rhonchi, stridor Cardiovascular Exam: Present: regular rate, normal rhythm, normal heart sounds. Absent: systolic murmur, diastolic murmur, rubs, gallop, clicks GI/Abdominal exam: Present: soft, normal bowel sounds. Absent: distended, tenderness, guarding, rebound, rigid Neurological exam: Present: alert, oriented X3, CN II-XII intact Psychiatric exam: Present: normal affect, normal mood Course Vital Signs 06/19/18 13:13 Temperature 97.7 F Pulse Rate 71 Respiratory 18 Rate Blood Pressure 123/80 O2 Sat by Pulse 100 Oximetry - Reevaluation(s) Reevaluation #1: 06/19/18 15:08 Discussed with pharmacy Heparin flush order Reevaluation #2: 06/19/18 17:46 Patient is well-appearing and states he is ready to go home. Medical Decision Making - Medical Decision Making 82-year-old male presents to the emergency department for a chief complaint of clogged PICC line times one week. Patient states it is infusing his medication without problem but he is not able to draw blood off of it. Lillian NGUYEN was able to flush the line but wasn't able to draw blood. Ultrasound was ordered to rule out DVT and chest x-ray was ordered to verify placement of PICC line. Chest x-ray shows left central venous catheter with tip in the SVC. Ultrasound of the left upper extremity shows a negative DVT exam. There is normal venous flow evident in the jugular subclavian and axillary and brachial vein of the left arm. Heparin was pushed but blood was still not able to be drawn. Alteplase was then used and blood was successfully drawn from PICC line 30 minutes later. Patient is ready to go home. He will follow up with primary care in 1-2 days. Patient aware to return to the emergency department if he has any worsening symptoms. Disposition Clinical Impression: PIC line (peripherally inserted central catheter) flush Disposition: HOME SELF-CARE Condition: Good Instructions: Peripherally Inserted Central Catheters and Midline Catheters (DC ) Additional Instructions: Please follow up with primary care in 1-2 days. Please return to the emergency department if you have any worsening symptoms. Is patient prescribed a controlled substance at d/c from ED?: No Referrals: Walter Serrano MD [Primary Care Provider] - 1-2 days Time of Disposition: 17:36
--- NOTE | 2018-06-19 15:54 | XR ---
EXAMINATION TYPE: XR chest 2V DATE OF EXAM: 06/19/2018 COMPARISON: 04/03/2018 HISTORY: Chest pain TECHNIQUE: Frontal and lateral views of the chest are obtained. FINDINGS: There is no heart failure nor confluent pneumonic infiltrate. There is left central venous catheter with tip in the superior vena cava. There is no pleural effusion. Heart appears slightly en larged. IMPRESSION: Mild cardiomegaly. No active cardiopulmonary disease. There is clearing of small right p leural effusion compared to old exam.
--- NOTE | 2018-06-19 15:55 | US ---
EXAMINATION TYPE: US venous doppler duplex UE LT DATE OF EXAM: 06/19/2018 COMPARISON: NONE CLINICAL HISTORY: Pain. EC patient with PICC left arm and EC unable withdraw blood from PICC; PICC pu t in 10 months ago. Patient denies arm/hand swelling. SIDE PERFORMED: left arm Left Arm: Negative for DVT. Small caliber lumen is noted at PICC insert site of left small Basilic Ve in and size at mid arm = 0.2 x 0.3cm, whereas, left Basilic Vein size = 0.6 x 0.5cm at upper arm near Left Axillary Vein. Color flow is noted around PICC in small vein. Color flow is also noted around P ICC in larger Deep Veins. Left Brachial paired Veins color flow patency is document distal to PICC in sert site on image # [id number]. Negative for SVT as able to see small superficial veins. IMPRESSION: Negative exam. There is normal venous flow evident in the jugular subclavian axillary and brachial ve in of the left arm.
[2018-06-19] MEDS ORDERED: ALTEPLASE 2 MG VIAL (CATHFLO) IV STA (16:37)
[2018-06-19 17:48] VITALS: BP 140/73; PULSE 72; TEMP 98.4
== END 2018-06-19 17:48 | disposition home or self-care (01) ==
LOC: EC 13:01
DX: T82.594A Other mechanical complication of infusion catheter, initial encounter (principal); J44.9 Chronic obstructive pulmonary disease, unspecified; I11.0 Hypertensive heart disease with heart failure; I50.9 Heart failure, unspecified; E11.9 Type 2 diabetes mellitus without complications; M19.90 Unspecified osteoarthritis, unspecified site; Z87.891 Personal history of nicotine dependence; Z79.4 Long term (current) use of insulin; Z79.82 Long term (current) use of aspirin; Z79.899 Other long term (current) drug therapy; Z82.49 Family history of ischemic heart disease and other diseases of the circulatory system
CPT/HCPCS: 71046; 93971; 99283; 96374; 96375 ×2; J1642; J2997

== ENCOUNTER 2018-10-10 18:02 | Inpatient (IN) | payer MEDICARE, BC, OTHER ==
[2018-10-10] MEDS ORDERED: ASPIRIN 81 MG PO STA (18:25)
[2018-10-10] MEDS ORDERED: NITROGLYCERIN OINT 1 INCH/GM PACKET TOPICAL STA (18:25)
--- NOTE | 2018-10-10 18:28 | ED ---
Weakness HPI - General Chief complaint: Weakness Stated complaint: Weakness Time Seen by Provider: 10/10/18 18:17 Source: EMS Mode of arrival: EMS Limitations: no limitations - History of Present Illness Initial comments: This 83-year-old white male presents with a complaint of some weakness. He states that he has had this for approximately 2 days. He states that he fell yesterday and could not get up. His family member had to help him. He denies any actual injuries. He also has had some worsening shortness of breath on exertion. He apparently has severe congestive heart failure and has a PICC line with continuous infusion of a cardiac medication. He normally sees Dr. Miller from cardiology but also has been seen at [facility]. He denies any leg pain or swelling. He does complain of some mild abdominal distention. He denies any fevers or chills. There is no urinary symptoms. He complains of some mild lower mid sternal chest pressure over the past couple of days. No other complaints or modifying factors. - Related Data Home Medications Medication Instructions Recorded Confirmed Albuterol Inhaler [Ventolin Hfa 2 puff INHALATION RT-QID PRN 11/25/17 10/10/18 Inhaler] Aspirin EC [Ecotrin Low Dose] 81 mg PO DAILY 11/25/17 10/10/18 Gabapentin [Neurontin] 100 mg PO BID 11/25/17 10/10/18 Insulin Aspart Protam & Aspart See Protocol SQ AC-SUPPER 11/25/17 10/10/18 [NovoLOG MIX 70-30 Flexpen] Ipratropium-Albuterol Nebulize 3 ml INHALATION RT-TID PRN 11/25/17 10/10/18 [Duoneb 0.5 mg-3 mg/3 ml Soln] Primacor 1mg/Ml 1 dose IV CONTINUOUS 11/25/17 10/10/18 glipiZIDE [Glucotrol] 5 mg PO AC-BID 11/25/17 10/10/18 Amiodarone [Cordarone] 200 mg PO DAILY 12/23/17 10/10/18 Allopurinol [Zyloprim] 200 mg PO DAILY 01/10/18 10/10/18 Potassium Chloride ER [K-Dur 20] 40 mg PO BID 08/03/18 10/10/18 Ergocalciferol (Vitamin D2) 50,000 unit PO Q30D 10/10/18 10/10/18 [Vitamin D2] Ferrous Sulfate [Feosol] 325 mg PO BID 10/10/18 10/10/18 Furosemide [Lasix] 40 mg PO DAILY 10/10/18 10/10/18 Metolazone [Zaroxolyn] 2.5 mg PO DAILY PRN 10/10/18 10/10/18 Sennosides [Senokot] 8.6 mg PO DAILY 10/10/18 10/10/18 Spironolactone 12.5 mg PO DAILY 10/10/18 10/10/18 Allergies Allergy/AdvReac Type Severity Reaction Status Date / Time No Known Allergies Allergy Verified 10/10/18 18:42 Review of Systems ROS Statement: Those systems with pertinent positive or pertinent negative responses have been documented in the HPI. ROS Other: All systems not noted in ROS Statement are negative. Past Medical History Past Medical History: Heart Failure, COPD, Diabetes Mellitus, Hypertension, Osteoarthritis (OA), Renal Disease Additional Past Medical History / Comment(s): Amlyodosis, Anemia History of Any Multi-Drug Resistant Organisms: None Reported Past Surgical History: Back Surgery Additional Past Surgical History / Comment(s): bilateral foot operation, right elbow , bilateral hand surgeries, cervical fusion rotator cuff Past Anesthesia/Blood Transfusion Reactions: No Reported Reaction Past Psychological History: No Psychological Hx Reported Smoking Status: Former smoker Past Alcohol Use History: None Reported Past Drug Use History: None Reported - Past Family History Father Family Medical History: Chest Pain / Angina General Exam - General Exam Comments Initial Comments: GENERAL: The patient is well nourished and well hydrated. VITAL SIGNS: Heart rate, blood pressure, respiratory rate reviewed as recorded in nurse's notes. EYES: Pupils are round and reactive. Extraocular movements are intact. No conjunctival / lid redness or swelling. ENT: No external evidence of injury, swelling, or ecchymosis. Airway is patent. Throat is clear. NECK: Nontender. No swelling or evidence of injury. No subcutaneous emphysema. Trachea is midline. No thyroid mass. HEART: Regular rate and rhythm. Good peripheral pulses. LUNGS/CHEST: There is mild Rales present bilaterally. No ecchymosis, subcutaneous emphysema, or tenderness. ABDOMEN: Abdomen soft without tenderness. No palpable masses or organomegaly. No peritoneal signs. No abdominal wall swelling or ecchymosis. EXTREMITIES: No extremity tenderness. Normal muscle tone and function. No thoracolumbar tenderness. NEUROLOGIC: Sensation is grossly intact. Cranial nerve exam reveals face is symmetrical, tongue is midline, speech is clear. SKIN: No abrasions or ecchymosis is noted. No induration or masses noted. PSYCHIATRIC: Alert and oriented. Appropriate behavior and judgment. Limitations: no limitations Course Vital Signs 10/10/18 18:06 Temperature 98.1 F Pulse Rate 71 Respiratory 18 Rate Blood Pressure 119/76 O2 Sat by Pulse 95 Oximetry Medical Decision Making - Medical Decision Making The patient was seen and examined. All diagnostics are reviewed. An aspirin was given his as well as Nitropaste. The laboratories reviewed and does show a significant elevation of the TSH. He also has an elevation of the troponin and his renal function studies. The chest x-ray does not show any acute definite abnormality. He also had an EKG done which shows a normal sinus rhythm at a rate of 70. There is no acute ST-T wave changes noted. The possibility of an old anteroseptal IN is possible. The patient may have some low voltage. The patient appears well on recheck. The case is discussed with Dr. Sharp and he is agreeable with admission and starting patient on some Synthroid. Patient will also have a cardiology consult. He will be admitted to telemetry for further treatment. - Lab Data Result diagrams: 10/10/18 18:20 10/10/18 18:20 Lab Results 10/10/18 10/10/18 10/10/18 Range/Units 18:20 18:20 18:20 WBC 5.3 (3.8-10.6) k/uL RBC 3.91 L (4.30-5.90) m/uL Hgb 13.5 (13.0-17.5) gm/dL Hct 41.0 (39.0-53.0) % MCV 105.0 H (80.0-100.0) fL MCH 34.7 (25.0-35.0) pg MCHC 33.0 (31.0-37.0) g/dL RDW 15.0 (11.5-15.5) % Plt Count 183 (150-450) k/uL Neutrophils % 76 % Lymphocytes % 12 % Monocytes % 8 % Eosinophils % 2 % Basophils % 0 % Neutrophils # 4.1 (1.3-7.7) k/uL Lymphocytes # 0.6 L (1.0-4.8) k/uL Monocytes # 0.4 (0-1.0) k/uL Eosinophils # 0.1 (0-0.7) k/uL Basophils # 0.0 (0-0.2) k/uL Macrocytosis Moderate PT (9.0-12.0) sec INR (<1.2) APTT (22.0-30.0) sec Sodium 137 (137-145) mmol/L Potassium 4.4 (3.5-5.1) mmol/L Chloride 103 (98-107) mmol/L Carbon Dioxide 24 (22-30) mmol/L Anion Gap 10 mmol/L BUN 38 H (9-20) mg/dL Creatinine 1.93 H (0.66-1.25) mg/dL Est GFR (CKD-EPI)AfAm 36 (>60 ml/min/1.73 sqM) Est GFR (CKD-EPI)NonAf 31 (>60 ml/min/1.73 sqM) Glucose 154 H (74-99) mg/dL Calcium 9.1 (8.4-10.2) mg/dL Phosphorus 3.8 (2.5-4.5) mg/dL Magnesium 1.9 (1.6-2.3) mg/dL Total Bilirubin 2.3 H (0.2-1.3) mg/dL AST 31 (17-59) U/L ALT 23 (21-72) U/L Alkaline Phosphatase 187 H (38-126) U/L Total Creatine Kinase 62 (55-170) U/L CK-MB (CK-2) 0.9 (0.0-2.4) ng/mL CK-MB (CK-2) Rel Index 1.5 Troponin I 0.230 H* (0.000-0.034) ng/mL NT-Pro-B Natriuret Pep pg/mL Total Protein 7.4 (6.3-8.2) g/dL Albumin 3.7 (3.5-5.0) g/dL TSH 73.100 H (0.465-4.680) mIU/L Urine Color Urine Appearance (Clear) Urine pH (5.0-8.0) Ur Specific [place] (1.001-1.035) Urine Protein (Negative) Urine Glucose (UA) (Negative) Urine Ketones (Negative) Urine Blood (Negative) Urine Nitrite (Negative) Urine Bilirubin (Negative) Urine Urobilinogen (<2.0) mg/dL Ur Leukocyte Esterase (Negative) 10/10/18 10/10/18 10/10/18 Range/Units 18:20 18:20 18:35 WBC (3.8-10.6) k/uL RBC (4.30-5.90) m/uL Hgb (13.0-17.5) gm/dL Hct (39.0-53.0) % MCV (80.0-100.0) fL MCH (25.0-35.0) pg MCHC (31.0-37.0) g/dL RDW (11.5-15.5) % Plt Count (150-450) k/uL Neutrophils % % Lymphocytes % % Monocytes % % Eosinophils % % Basophils % % Neutrophils # (1.3-7.7) k/uL Lymphocytes # (1.0-4.8) k/uL Monocytes # (0-1.0) k/uL Eosinophils # (0-0.7) k/uL Basophils # (0-0.2) k/uL Macrocytosis PT 12.7 H (9.0-12.0) sec INR 1.2 H (<1.2) APTT 26.5 (22.0-30.0) sec Sodium (137-145) mmol/L Potassium (3.5-5.1) mmol/L Chloride (98-107) mmol/L Carbon Dioxide (22-30) mmol/L Anion Gap mmol/L BUN (9-20) mg/dL Creatinine (0.66-1.25) mg/dL Est GFR (CKD-EPI)AfAm (>60 ml/min/1.73 sqM) Est GFR (CKD-EPI)NonAf (>60 ml/min/1.73 sqM) Glucose (74-99) mg/dL Calcium (8.4-10.2) mg/dL Phosphorus (2.5-4.5) mg/dL Magnesium (1.6-2.3) mg/dL Total Bilirubin (0.2-1.3) mg/dL AST (17-59) U/L ALT (21-72) U/L Alkaline Phosphatase (38-126) U/L Total Creatine Kinase (55-170) U/L CK-MB (CK-2) (0.0-2.4) ng/mL CK-MB (CK-2) Rel Index Troponin I (0.000-0.034) ng/mL NT-Pro-B Natriuret Pep 5650 pg/mL Total Protein (6.3-8.2) g/dL Albumin (3.5-5.0) g/dL TSH (0.465-4.680) mIU/L Urine Color Yellow Urine Appearance Clear (Clear) Urine pH 6.5 (5.0-8.0) Ur Specific [place] 1.007 (1.001-1.035) Urine Protein Negative (Negative) Urine Glucose (UA) Negative (Negative) Urine Ketones Negative (Negative) Urine Blood Negative (Negative) Urine Nitrite Negative (Negative) Urine Bilirubin Negative (Negative) Urine Urobilinogen <2.0 (<2.0) mg/dL Ur Leukocyte Esterase Negative (Negative) Disposition Clinical Impression: Chest pain, Unstable angina, Weakness, Hypothyroidism, Renal insufficiency, Non -ST elevation myocardial infarction (NSTEMI), Congestive heart failure Disposition: ADMITTED IP TO THIS HOSP Condition: Fair Referrals: Walter Serrano MD [Primary Care Provider] - 1-2 days Time of Disposition: 21:18 Decision Date: 10/10/18 Decision Time: 21:18
[2018-10-10 18:38] LABS: Basophils % (A) 0 %; Eosinophils # (A) 0.1 k/uL (0-0.7); Eosinophils % (A) 2 %; HGB 13.5 gm/dL (13.0-17.5); Lymphocytes # (A) 0.6 k/uL (1.0-4.8); Lymphocytes % (A) 12 %; MCH 34.7 pg (25.0-35.0); Macrocytosis Moderate; Mean Platelet Volume 7.3; Monocytes # (A) 0.4 k/uL (0-1.0); Monocytes % (A) 8 %; Neutrophils # (A) 4.1 k/uL (1.3-7.7); Neutrophils % (A) 76 %; Platelet Count 183 k/uL (150-450); RBC 3.91 m/uL (4.30-5.90); WBC 5.3 k/uL (3.8-10.6)
[2018-10-10 18:48] LABS: INR 1.2 (<1.2); Partial Thromboplastin Time 26.5 sec (22.0-30.0); Prothrombin Time 12.7 sec (9.0-12.0)
[2018-10-10 18:50] LABS: Albumin 3.7 g/dL (3.5-5.0); Calcium 9.1 mg/dL (8.4-10.2); Magnesium 1.9 mg/dL (1.6-2.3); Phosphorus 3.8 mg/dL (2.5-4.5); Potassium 4.4 mmol/L (3.5-5.1); Total Bilirubin 2.3 mg/dL (0.2-1.3); Total Protein 7.4 g/dL (6.3-8.2)
[2018-10-10 19:02] LABS: Creatine Kinase MB 0.9 ng/mL (0.0-2.4)
[2018-10-10 19:03] LABS: Appearance,Urine Clear (Clear); Bilirubin,Urine Negative (Negative); Blood,Urine Negative (Negative); Color,Urine Yellow; Glucose,Urine (UA) Negative (Negative); Ketones,Urine Negative (Negative); Leukocyte Esterase,Urine Negative (Negative); Nitrite,Urine Negative (Negative); PH, Urine 6.5 (5.0-8.0); Protein,Urine Negative (Negative); Specific Gravity,Urine 1.007 (1.001-1.035); Urobilinogen,Urine <2.0 mg/dL (<2.0)
[2018-10-10 19:20] LABS: Troponin I 0.23 ng/mL (0.000-0.034)
--- NOTE | 2018-10-10 20:02 | XR ---
EXAMINATION: XR chest 2V DATE AND TIME: 10/10/2018 7:38 PM CLINICAL INDICATION: PHH; Weakness TECHNIQUE: Departmental protocol COMPARISON: 06/19/2018 FINDINGS: The overlying soft tissues are prominent. There is a baseline chronic interstitial pattern, seen on the prior study. No definite acute pulmonar y process currently. The pleural spaces show a tiny right pleural effusion, and this may have been present on the prior st udy. The cardiac silhouette is not enlarged. The remainder of the mediastinal silhouette is unremarkable. The skeletal structures and soft tissues are negative for acute findings. IMPRESSION: NO DEFINITE ACUTE PROCESS.
[2018-10-10] MEDS ORDERED: HEPARIN SODIUM,PORCINE 5,000 UNIT/ML 1 ML VIAL IV PRN (21:30)
[2018-10-10] MEDS ORDERED: HEPARIN SODIUM,PORCINE 5,000 UNIT/ML 1 ML VIAL IV ONE (21:30)
[2018-10-10] MEDS ORDERED: ALBUTEROL NEBULIZED 2.5 MG/3 ML INHALATION PRN (21:33)
[2018-10-10] MEDS ORDERED: METOLAZONE 2.5 MG TAB PO PRN (21:33)
[2018-10-10] MEDS ORDERED: IPRATROPIUM-ALBUTEROL 3 ML NEB INHALATION PRN (21:33)
[2018-10-10] MEDS ORDERED: PRIMACOR IV SCH (21:45)
[2018-10-10] MEDS: HEPARIN SOD,PORK IN 0.45% NACL 25,000 UNIT in 0.45% NACL 1 250ML.BAG IV SCH (22:05)
[2018-10-10] MEDS: MILRINONE-D5W PMX 20 MG in DEXTROSE/WATER 1 100ML.BAG IV SCH (23:38)
[2018-10-11 00:09] LABS: Creatine Kinase MB 0.9 ng/mL (0.0-2.4)
[2018-10-11 00:36] LABS: Troponin I 0.265 ng/mL (0.000-0.034)
[2018-10-11] MEDS: NITROGLYCERIN OINT 1 INCH/GM PACKET TOPICAL SCH ×4 (01:37→17:33)
[2018-10-11 06:51] LABS: Glucose,Whole Blood 113 mg/dL (75-99)
[2018-10-11] MEDS: INSULIN ASPART 100 UNIT/ML 1 ML 10 ML VIAL SQ SCH ×4 (06:55→21:48)
[2018-10-11] MEDS: LEVOTHYROXINE 25 MCG TAB PO SCH (06:56)
[2018-10-11 07:43] LABS: Creatine Kinase MB 0.9 ng/mL (0.0-2.4)
[2018-10-11 07:48] LABS: Troponin I 0.266 ng/mL (0.000-0.034)
--- NOTE | 2018-10-11 07:57 | P.HPIM ---
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 Patient has been followed by cardiology here and also at [facility] secondary congestive heart failure clinic. He is on chronic IV infusion of milrinone. Apparently one to 2 days prior to presentation he became weak with increasing shortness of breath. He had a fall where he lost his balance at home and was not able to get up except with much assistance from family. He has had some gradual weakness over several weeks. Denies any chest pain. Increased shortness of breath with exertion. No fever or chills or cough associated with this. Past medical history Chronic systolic and diastolic congestive heart failure with poor ejection fraction on previous echocardiograms. Amyloid restrictive cardiomyopathy Chronic kidney disease stage III History of tobacco use and COPD Diabetes #2 Hypertension Gout Osteoarthritis Diabetic neuropathy BPH Previous surgeries include right elbow surgery and bilateral feet operations. He also had cervical fusions and bilateral hand surgeries in the past. No known ALLERGIES Home medications DuoNeb respiratory treatments 3 times a day as needed. Allopurinol 200 mg daily Amiodarone 200 mg daily Aspirin 81 mg daily Vitamin D to 50,000 units once a month Ferrous sulfate 325 mg twice a day Lasix 40 mg daily Neurontin 100 mg twice a day Glipizide 5 mg twice a day before meals Zaroxolyn 2.5 daily as needed for edema He is on milrinone by IV infusion. Potassium chloride 20 mEq 2 tablets twice a day and spironolactone 12.5 daily Senokot as needed Review of systems No unusual headaches. No loss of consciousness. No nausea vomiting. No new urinary or bowel symptoms. No unusual leg edema. Family history Positive for coronary artery disease and diabetes Social history Patient has quit smoking. No history of any extensive alcohol intake. He lives locally with his and has family support. Last vital signs Temperature 98.1 with a pulse of 66 and respirations 16. Blood pressure 105/62 and he is 97% saturated on room air. Head is atraumatic. Extraocular movements intact. Neck supple without thyromegaly, adenopathy detected. Lungs are generally clear although diminished at bases. Heart tones were regular without murmurs or rubs appreciated. Abdomen is soft and nontender. Rectal and genital exam deferred. No edema. Neurologically he is presently alert. Diffusely weak but no focal weakness noted. No cranial nerve deficits. Laboratory White count 5.3 with hemoglobin 13.3 and a platelet count of 183. INR was 1.2 Electrolytes were normal. Potassium 4.4. BUN of 38 with a creatinine 1.93 given him a GFR of 36 Blood sugar was 154. Alk phos 187 with a bilirubin 2.3. Other liver function tests were good. Albumin 3.7. Troponin was elevated at 0.23 and has remained in the 0.266 range at their determination. BNP also at 5650. TSH also elevated at 73. Urinalysis was clear. EKG shows a sinus rhythm. Poor R-wave progression anteriorly. Left axis deviation Chest x-ray did not show any acute process. Impressions Overall this is a 83-year-old gentleman with restrictive amyloid cardiomyopathy presents with increasing weakness. Falls at home. Labs revealed elevated TSH consistent with hypothyroidism. Likely aggravated by amiodarone. Patient has acute on chronic diastolic congestive heart failure. He is on chronic therapy. Other past medical history as stated above. Elevated troponin levels may not be indicative of acute ischemic changes. Plans At this time plans are to have cardiology evaluate the patient. Slowly began replacement of thyroid. PT and OT evaluation and therapy. Further recommendations pending clinical response and cardiology recommendations. Past Medical History Past Medical History: Heart Failure, COPD, Diabetes Mellitus, Hypertension, Osteoarthritis (OA), Renal Disease Additional Past Medical History / Comment(s): Amlyodosis, Anemia History of Any Multi-Drug Resistant Organisms: None Reported Past Surgical History: Back Surgery Additional Past Surgical History / Comment(s): bilateral foot operation, right elbow , bilateral hand surgeries, cervical fusion rotator cuff Past Anesthesia/Blood Transfusion Reactions: No Reported Reaction Past Psychological History: No Psychological Hx Reported Smoking Status: Former smoker Past Alcohol Use History: None Reported Past Drug Use History: None Reported - Past Family History Father Family Medical History: Chest Pain / Angina Medications and Allergies Home Medications Medication Instructions Recorded Confirmed Type Albuterol Inhaler [Ventolin Hfa 2 puff INHALATION RT-QID PRN 11/25/17 10/10/18 History Inhaler] Aspirin EC [Ecotrin Low Dose] 81 mg PO DAILY 11/25/17 10/10/18 History Gabapentin [Neurontin] 100 mg PO BID 11/25/17 10/10/18 History Insulin Aspart Protam & Aspart See Protocol SQ AC-SUPPER 11/25/17 10/10/18 History [NovoLOG MIX 70-30 Flexpen] Ipratropium-Albuterol Nebulize 3 ml INHALATION RT-TID PRN 11/25/17 10/10/18 History [Duoneb 0.5 mg-3 mg/3 ml Soln] Primacor 1mg/Ml 1 dose IV CONTINUOUS 11/25/17 10/10/18 History glipiZIDE [Glucotrol] 5 mg PO AC-BID 11/25/17 10/10/18 History Amiodarone [Cordarone] 200 mg PO DAILY 12/23/17 10/10/18 History Allopurinol [Zyloprim] 200 mg PO DAILY 01/10/18 10/10/18 History Potassium Chloride ER [K-Dur 20] 40 mg PO BID 08/03/18 10/10/18 History Ergocalciferol (Vitamin D2) 50,000 unit PO Q30D 10/10/18 10/10/18 History [Vitamin D2] Ferrous Sulfate [Feosol] 325 mg PO BID 10/10/18 10/10/18 History Furosemide [Lasix] 40 mg PO DAILY 10/10/18 10/10/18 History Metolazone [Zaroxolyn] 2.5 mg PO DAILY PRN 10/10/18 10/10/18 History Sennosides [Senokot] 8.6 mg PO DAILY 10/10/18 10/10/18 History Spironolactone 12.5 mg PO DAILY 10/10/18 10/10/18 History Allergies Allergy/AdvReac Type Severity Reaction Status Date / Time No Known Allergies Allergy Verified 10/10/18 18:42 Physical Exam Vitals: Vital Signs Temp Pulse Pulse Resp BP BP Pulse Ox 10/11/18 04:00 98.1 F 66 16 105/62 97 10/10/18 23:07 98.1 F 67 16 111/71 98 10/10/18 22:00 64 20 106/71 97 10/10/18 21:00 68 18 100/69 98 10/10/18 18:06 98.1 F 71 18 119/76 95 Intake and Output 10/10/18 10/11/18 10/11/18 22:59 06:59 14:59 Other: Voiding Method Toilet # Voids 1 Weight 79.379 kg 78.2 kg Results CBC & Chem 7: 10/10/18 18:20 10/10/18 18:20 Labs: Abnormal Lab Results - Last 24 Hours (Table) 10/10/18 10/10/18 10/10/18 Range/Units 18:20 18:20 18:20 RBC 3.91 L (4.30-5.90) m/uL MCV 105.0 H (80.0-100.0) fL Lymphocytes # 0.6 L (1.0-4.8) k/uL PT (9.0-12.0) sec INR (<1.2) BUN 38 H (9-20) mg/dL Creatinine 1.93 H (0.66-1.25) mg/dL Glucose 154 H (74-99) mg/dL POC Glucose (mg/dL) (75-99) mg/dL Total Bilirubin 2.3 H (0.2-1.3) mg/dL Alkaline Phosphatase 187 H (38-126) U/L Total Creatine Kinase (55-170) U/L Troponin I 0.230 H* (0.000-0.034) ng/mL TSH 73.100 H (0.465-4.680) mIU/L 10/10/18 10/10/18 10/11/18 Range/Units 18:20 23:20 06:03 RBC (4.30-5.90) m/uL MCV (80.0-100.0) fL Lymphocytes # (1.0-4.8) k/uL PT 12.7 H (9.0-12.0) sec INR 1.2 H (<1.2) BUN (9-20) mg/dL Creatinine (0.66-1.25) mg/dL Glucose (74-99) mg/dL POC Glucose (mg/dL) (75-99) mg/dL Total Bilirubin (0.2-1.3) mg/dL Alkaline Phosphatase (38-126) U/L Total Creatine Kinase 48 L (55-170) U/L Troponin I 0.265 H* (0.000-0.034) ng/mL TSH (0.465-4.680) mIU/L 10/11/18 Range/Units 06:48 RBC (4.30-5.90) m/uL MCV (80.0-100.0) fL Lymphocytes # (1.0-4.8) k/uL PT (9.0-12.0) sec INR (<1.2) BUN (9-20) mg/dL Creatinine (0.66-1.25) mg/dL Glucose (74-99) mg/dL POC Glucose (mg/dL) 113 H (75-99) mg/dL Total Bilirubin (0.2-1.3) mg/dL Alkaline Phosphatase (38-126) U/L Total Creatine Kinase (55-170) U/L Troponin I (0.000-0.034) ng/mL TSH (0.465-4.680) mIU/L Thrombosis Risk Factor Assmnt - Choose All That Apply Any of the Below Risk Factors Present?: Yes Each Factor Represents 1 point: Abnormal pulmonary function (COPD) Each Risk Factor Represents 3 Points: Age 75 years or older Thrombosis Risk Factor Assessment Total Risk Factor Score: 4 Thrombosis Risk Factor Assessment Level: Moderate Risk
--- NOTE | 2018-10-11 08:20 | P.CRDCN ---
History of Present Illness Consult date: 10/11/18 Requesting physician: Walter Serrano Reason for Consult (text): Abnormal troponins Chief complaint: Tiredness and weakness History of present illness: This is a pleasant 83-year-old gentleman who follows with Dr. Arredondo in the office, he also follows with Dr. Jessica Silveira at the heart failure center at [facility]. He has known amyloidosis with restrictive cardiomyopathy and severe heart failure, he is on home milrinone therapy, he also has history of stage III chronic kidney disease, hypertension, diabetes, hyperlipidemia, history of nicotine dependence in the past. Patient presents to the hospital on this occasion with symptoms of weakness, tiredness, and increasing shortness of breath. He apparently had a fall at home and was unable to get up, therefore the EMS was called and patient was brought here for further evaluation and treatment. His chest x-ray on arrival did not reveal any definite acute process. His EKG shows a normal sinus rhythm with a first- degree AV block, nonspecific ST-T wave changes. Blood pressure 106/60 with a heart rate in the 60s, 97% on room air. White blood cell count 5.3, hemoglobin 13.5, platelet count 183. Sodium 137, potassium 4.4, BUN 38 and creatinine 1.9. BNP level 5650. Troponins 0.23, 0.26, 0.26. At the time of my examination this morning, patient feels extremely weak, he denies any chest discomfort at present or prior to admission. Does complain of some mild shortness of breath. TSH level on admission 73.1. Past Medical History Past Medical History: Heart Failure, COPD, Diabetes Mellitus, Hypertension, Osteoarthritis (OA), Renal Disease Additional Past Medical History / Comment(s): Amlyodosis, Anemia History of Any Multi-Drug Resistant Organisms: None Reported Past Surgical History: Back Surgery Additional Past Surgical History / Comment(s): bilateral foot operation, right elbow , bilateral hand surgeries, cervical fusion rotator cuff Past Anesthesia/Blood Transfusion Reactions: No Reported Reaction Past Psychological History: No Psychological Hx Reported Smoking Status: Former smoker Past Alcohol Use History: None Reported Past Drug Use History: None Reported - Past Family History Father Family Medical History: Chest Pain / Angina Medications and Allergies Home Medications Medication Instructions Recorded Confirmed Type Albuterol Inhaler [Ventolin Hfa 2 puff INHALATION RT-QID PRN 03/08/18 01/21/19 History Inhaler] Aspirin EC [Ecotrin Low Dose] 81 mg PO DAILY 11/25/17 10/10/18 History Gabapentin [Neurontin] 100 mg PO BID 11/25/17 10/10/18 History Insulin Aspart Protam & Aspart See Protocol SQ AC-SUPPER 11/25/17 10/10/18 History [NovoLOG MIX 70-30 Flexpen] Ipratropium-Albuterol Nebulize 3 ml INHALATION RT-TID PRN 11/25/17 10/10/18 History [Duoneb 0.5 mg-3 mg/3 ml Soln] Primacor 1mg/Ml 1 dose IV CONTINUOUS 11/25/17 10/10/18 History glipiZIDE [Glucotrol] 5 mg PO AC-BID 11/25/17 10/10/18 History Amiodarone [Cordarone] 200 mg PO DAILY 12/23/17 10/10/18 History Allopurinol [Zyloprim] 200 mg PO DAILY 01/10/18 10/10/18 History Potassium Chloride ER [K-Dur 20] 40 mg PO BID 08/03/18 10/10/18 History Ergocalciferol (Vitamin D2) 50,000 unit PO Q30D 10/10/18 10/10/18 History [Vitamin D2] Ferrous Sulfate [Feosol] 325 mg PO BID 10/10/18 10/10/18 History Furosemide [Lasix] 40 mg PO DAILY 10/10/18 10/10/18 History Metolazone [Zaroxolyn] 2.5 mg PO DAILY PRN 10/10/18 10/10/18 History Sennosides [Senokot] 8.6 mg PO DAILY 10/10/18 10/10/18 History Spironolactone 12.5 mg PO DAILY 10/10/18 10/10/18 History Allergies Allergy/AdvReac Type Severity Reaction Status Date / Time No Known Allergies Allergy Verified 10/10/18 18:42 Physical Exam Vitals: Vital Signs Temp Pulse Pulse Resp BP BP Pulse Ox 10/11/18 04:00 98.1 F 66 16 105/62 97 10/10/18 23:07 98.1 F 67 16 111/71 98 10/10/18 22:00 64 20 106/71 97 10/10/18 21:00 68 18 100/69 98 10/10/18 18:06 98.1 F 71 18 119/76 95 Intake and Output 10/10/18 10/11/18 10/11/18 22:59 06:59 14:59 Other: Voiding Method Toilet # Voids 1 Weight 79.379 kg 78.2 kg PHYSICAL EXAMINATION: GENERAL: 83-year-old -[place]ish gentleman in no acute distress at the time of my examination HEENT: Head is atraumatic, normocephalic. Pupils equal, round. Sclera anicteric. Conjunctiva are clear. Mucous membranes of the mouth are moist. Neck is supple. There is elevated jugular venous pressure. No carotid bruit is heard. HEART EXAMINATION: Heart S1, S2 normal. No murmur or gallop heard. CHEST EXAMINATION: Lungs reveal scattered coarse rhonchi throughout. ABDOMEN: Soft, mildly distended . Bowel sounds are heard. No organomegaly noted. EXTREMITIES: 2+ peripheral pulses with no evidence of peripheral edema and no calf tenderness noted. NEUROLOGIC patient is awake, alert and oriented 2 . . Results 10/10/18 18:20 10/10/18 18:20 Cardiac Enzymes 10/10/18 10/10/18 10/10/18 Range/Units 18:20 18:20 23:20 AST 31 (17-59) U/L CK-MB (CK-2) 0.9 0.9 (0.0-2.4) ng/mL Troponin I 0.230 H* 0.265 H* (0.000-0.034) ng/mL 10/11/18 Range/Units 06:03 AST (17-59) U/L CK-MB (CK-2) 0.9 (0.0-2.4) ng/mL Troponin I 0.266 H* (0.000-0.034) ng/mL Coagulation 10/10/18 Range/Units 18:20 PT 12.7 H (9.0-12.0) sec APTT 26.5 (22.0-30.0) sec CBC 10/10/18 Range/Units 18:20 WBC 5.3 (3.8-10.6) k/uL RBC 3.91 L (4.30-5.90) m/uL Hgb 13.5 (13.0-17.5) gm/dL Hct 41.0 (39.0-53.0) % Plt Count 183 (150-450) k/uL Comprehensive Metabolic Panel 10/10/18 Range/Units 18:20 Sodium 137 (137-145) mmol/L Potassium 4.4 (3.5-5.1) mmol/L Chloride 103 (98-107) mmol/L Carbon Dioxide 24 (22-30) mmol/L BUN 38 H (9-20) mg/dL Creatinine 1.93 H (0.66-1.25) mg/dL Glucose 154 H (74-99) mg/dL Calcium 9.1 (8.4-10.2) mg/dL AST 31 (17-59) U/L ALT 23 (21-72) U/L Alkaline Phosphatase 187 H (38-126) U/L Total Protein 7.4 (6.3-8.2) g/dL Albumin 3.7 (3.5-5.0) g/dL Current Medications Generic Name Dose Route Start Last Admin Trade Name Freq PRN Reason Stop Dose Admin Albuterol Sulfate 2.5 mg 10/10/18 21:33 Ventolin Nebulized INHALATION RT-QID PRN Shortness Of Breath Albuterol/Ipratropium 3 ml 10/10/18 21:33 Duoneb 0.5 Mg-3 Mg/3 Ml Soln INHALATION RT-TID PRN Shortness Of Breath Allopurinol 200 mg 10/11/18 09:00 Zyloprim PO DAILY [facility] Amiodarone HCl 200 mg 10/11/18 09:00 Cordarone PO DAILY [facility] Aspirin 81 mg 10/11/18 09:00 Aspirin PO DAILY [facility] Ergocalciferol 50,000 unit 10/24/18 09:00 Vitamin D2 PO Q30D [facility] Ferrous Sulfate 325 mg 10/11/18 09:00 Feosol PO BID [facility] Furosemide 40 mg 10/11/18 09:00 Lasix PO DAILY [facility] Gabapentin 100 mg 10/11/18 09:00 Neurontin PO BID [facility] Glipizide 5 mg 10/11/18 07:30 Glucotrol PO AC-BID [facility] Heparin Sodium (Porcine) 0 unit 10/10/18 21:30 Heparin IV Q6HR PRN Low PTT Protocol Heparin Sodium/Sodium Chloride 250 mls @ 9.52 mls/hr 10/10/18 21:30 10/10/18 22:05 25,000 unit/ Sodium Chloride IV 12 units/kg/hr .Q24H [facility] 9.52 mls/hr Administration Protocol 12 UNITS/KG/HR Milrinone Lactate/Dextrose 20 100 mls @ 7.14 mls/hr 10/10/18 23:00 10/10/18 23:38 mg/ IV Solution IV Not Given .Q14H1M [facility] 0.3 MCG/KG/MIN Insulin Aspart 0 unit 10/11/18 07:30 10/11/18 06:55 Novolog SQ Not Given ACHS [facility] Protocol Levothyroxine Sodium 25 mcg 10/11/18 06:30 10/11/18 06:56 Synthroid PO 25 mcg DAILY@0630 [facility] Administration Metolazone 2.5 mg 10/10/18 21:33 Zaroxolyn PO DAILY PRN Edema Nitroglycerin 1 inch 10/11/18 00:00 10/11/18 06:39 Nitro-Bid Oint TOPICAL Not Given Q6HR [facility] Potassium Chloride 40 meq 10/11/18 09:00 K-Dur 20 PO BID [facility] Senna 8.6 mg 10/11/18 09:00 Senokot PO DAILY [facility] Spironolactone 12.5 mg 10/11/18 09:00 Aldactone PO DAILY [facility] Intake and Output 10/10/18 10/11/18 10/11/18 22:59 06:59 14:59 Other: Voiding Method Toilet # Voids 1 Weight 79.379 kg 78.2 kg 10/10/18 18:20 10/10/18 18:20 EKG Interpretations (text) EKG shows a normal sinus rhythm with first-degree AV block and nonspecific ST-T wave changes Assessment and Plan Plan: Assessment and plan #1 progressive weakness with falls #2 acute on chronic diastolic congestive heart failure. Most recent echocardiogram with Doppler study was performed in December of this year which revealed an ejection fraction of 50-55%. Moderate tricuspid regurg moderate pulmonary hypertension. #3 hypothyroidism #4 amyloidosis with restrictive cardiomyopathy, follows with Jessica Silveira that the heart failure center at [facility], on milrinone therapy #5 stage III chronic kidney disease #6 hypertension #7 hyperlipidemia #8 history of nicotine dependence #9 diabetes #10 abnormal troponins, not consistent with acute coronary syndrome with no significant rise and fall pattern, likely secondary to chronic renal failure. Patient Is known to have abnormal troponins. Plan We will obtain an echocardiogram with Doppler study. Patient is also going to be started on replacement for thyroid. He has chronically been on amiodarone. We will continue the patient's current medications including his milrinone therapy. We will give him a one-time dose of IV Lasix. Further recommendations to follow. DNP note has been reviewed, I agree with a documented findings and plan of care. Patient was seen and examined.
[2018-10-11] MEDS ORDERED: FUROSEMIDE 10 MG/ML 4 ML VIAL IV STA (08:32)
[2018-10-11] MEDS ORDERED: ASPIRIN 325 MG TAB PO SCH (09:00)
[2018-10-11] MEDS: glipiZIDE 5 MG TAB PO SCH ×2 (11:34→17:26)
[2018-10-11] MEDS: ALLOPURINOL 100 MG TAB PO SCH (11:35)
[2018-10-11] MEDS: ASPIRIN 81 MG PO SCH (11:37)
[2018-10-11] MEDS: FERROUS SULFATE 325 MG TAB PO SCH ×2 (11:37→21:50)
[2018-10-11] MEDS: AMIODARONE 200 MG TAB PO SCH (11:37)
[2018-10-11] MEDS: GABAPENTIN 100 MG CAP PO SCH ×2 (11:37→21:51)
[2018-10-11] MEDS: POTASSIUM CHLORIDE ER 20 MEQ TAB.ER PO SCH ×2 (11:38→21:50)
[2018-10-11] MEDS: SENNOSIDES 8.6 MG TAB PO SCH (11:38)
[2018-10-11] MEDS: FUROSEMIDE 40 MG TAB PO SCH (11:38)
[2018-10-11] MEDS: SPIRONOLACTONE 25 MG TAB PO SCH (11:39)
[2018-10-11 12:15] LABS: Glucose,Whole Blood 55 mg/dL (75-99)
[2018-10-11 12:16] LABS: Glucose,Whole Blood 101 mg/dL (75-99)
[2018-10-11 12:16] LABS: Glucose,Whole Blood 63 mg/dL (75-99)
[2018-10-11 12:50] LABS: Hemoglobin A1C 6.8 % (4.0-6.0)
[2018-10-11] MEDS: MILRINONE-D5W PMX 20 MG in DEXTROSE/WATER 1 100ML.BAG IV SCH (13:07)
[2018-10-11 13:49] VITALS: BMI 23.6
--- NOTE | 2018-10-11 15:16 | ECHOF ---
Referral Reason:chf MEASUREMENTS -------- HEIGHT: 180.3 cm WEIGHT: 78.0 kg BP: 110/72 IVSd: 2.2 cm (0.6 - 1.1) LVIDd: 3.7 cm (3.9 - 5.3) LVPWd: 2.3 cm (0.6 - 1.1) IVSs: 2.1 cm LVIDs: 2.9 cm LVPWs: 2.4 cm LA Diam: 4.6 cm (2.7 - 3.8) RVIDd: 3.7 cm (< 3.3) LAESV Index (A-L): 31.08 ml/m Ao Diam: 3.6 cm (2.0 - 3.7) AV Cusp: 2.4 cm (1.5 - 2.6) EPSS: 0.5 cm MV E Peter: 0.83 m/s MV DecT: 140 ms MV A Peter: 0.46 m/s MV E/A Ratio: 1.79 AR PHT: 971 ms RAP: 15.00 mmHg RVSP: 43.58 mmHg MV EF SLOPE: 129.68 mm/s (70 - 150) MV EXCURSION: 20.50 mm (> 18.000) FINDINGS -------- Sinus rhythm. This was a technically good study. The left ventricular size is normal. There is severe concentric left ventricular hypertrophy. Ove rall left ventricular systolic function is mild-moderately impaired with, an EF between 40 - 45 %. The right ventricle is mildly enlarged. LA is midly dilated 29-33ml/m2. The right atrium is normal in size. There is mild aortic valve sclerosis. There is mild aortic regurgitation. The mitral valve leaflets are mildly thickened. Mild mitral regurgitation is present. Mild tricuspid regurgitation present. There is mild pulmonary hypertension. The right ventricular systolic pressure, as measured by Doppler, is 43.58mmHg. The pulmonic valve was not well visualized. The aortic root size is normal. The inferior vena cava is dilated with poor inspiratory collapse which is consistent with estimated r ight atrial pressure of 15 mmHg. There is no pericardial effusion. CONCLUSIONS -------- 1. Sinus rhythm. 2. This was a technically good study. 3. The left ventricular size is normal. 4. There is severe concentric left ventricular hypertrophy. 5. Overall left ventricular systolic function is mild-moderately impaired with, an EF between 40 - 45 %. 6. The right ventricle is mildly enlarged. 7. LA is midly dilated 29-33ml/m2. 8. The right atrium is normal in size. 9. There is mild aortic valve sclerosis. 10. There is mild aortic regurgitation. 11. The mitral valve leaflets are mildly thickened. 12. Mild mitral regurgitation is present. 13. Mild tricuspid regurgitation present. 14. There is mild pulmonary hypertension. 15. The right ventricular systolic pressure, as measured by Doppler, is 43.58mmHg. 16. The pulmonic valve was not well visualized. 17. The aortic root size is normal. 18. The inferior vena cava is dilated with poor inspiratory collapse which is consistent with estimat ed right atrial pressure of 15 mmHg. 19. There is no pericardial effusion. INSULATION ENGINEMAN: Izabella Orantes RDCS
[2018-10-11 16:24] LABS: Glucose,Whole Blood 173 mg/dL (75-99)
[2018-10-11 21:33] LABS: Glucose,Whole Blood 146 mg/dL (75-99)
[2018-10-12] MEDS: HEPARIN SOD,PORK IN 0.45% NACL 25,000 UNIT in 0.45% NACL 1 250ML.BAG IV SCH (00:30)
[2018-10-12] MEDS: NITROGLYCERIN OINT 1 INCH/GM PACKET TOPICAL SCH ×3 (00:30→19:43)
[2018-10-12 01:58] LABS: Glucose,Whole Blood 132 mg/dL (75-99)
[2018-10-12] MEDS: MILRINONE-D5W PMX 20 MG in DEXTROSE/WATER 1 100ML.BAG IV SCH ×2 (04:37→19:39)
[2018-10-12 06:04] LABS: Glucose,Whole Blood 121 mg/dL (75-99)
[2018-10-12] MEDS: INSULIN ASPART 100 UNIT/ML 1 ML 10 ML VIAL SQ SCH ×4 (06:19→21:23)
[2018-10-12] MEDS: glipiZIDE 5 MG TAB PO SCH ×2 (06:27→17:48)
[2018-10-12] MEDS: LEVOTHYROXINE 25 MCG TAB PO SCH (06:27)
--- NOTE | 2018-10-12 08:42 | P.PN ---
Progress Note - Text The patient is an 83-year-old gentleman who has chronic diastolic congestive heart failure with restrictive cardiomyopathy and secondary to amyloid deposition. He is treated for his congestive heart failure by [facility] cardiology clinic and also [facility] locally. He has been having increased weakness and shortness of breath. Found to be markedly hypothyroid. He is on amiodarone. Thyroid replacement has been started at a low dose. Overall he seems to be tolerating well. He denies shortness of breath at rest or chest pain at this time. Vital signs show temperature 97.9 with a pulse 71 respirations 15. Blood pressure 108/68 and he is 95% saturated on room air. Lung and heart exam is clear at this time. Abdomen nontender. No unusual edema. He is generally weak but no focal deficits. And he is alert. Blood sugar is 121 this morning. Echocardiogram shows a ejection fraction of 40-45%. Impressions and plans Patient appears to be tolerating the thyroid replacement and we will increase that to 37.5 g daily. The cardiology evaluation in progress for his acute on chronic systolic and diastolic congestive heart failure. On IV milrinone. We'll see how patient does with physical and occupational therapy today to decide whether patient can return to home or needs to go to rehab placement.
[2018-10-12] MEDS: ALLOPURINOL 100 MG TAB PO SCH (10:10)
[2018-10-12] MEDS: ASPIRIN 81 MG PO SCH (10:11)
[2018-10-12] MEDS: AMIODARONE 200 MG TAB PO SCH (10:11)
[2018-10-12] MEDS: FERROUS SULFATE 325 MG TAB PO SCH ×2 (10:12→21:30)
[2018-10-12] MEDS: FUROSEMIDE 40 MG TAB PO SCH (10:12)
[2018-10-12] MEDS: GABAPENTIN 100 MG CAP PO SCH ×2 (10:12→21:30)
[2018-10-12] MEDS: POTASSIUM CHLORIDE ER 20 MEQ TAB.ER PO SCH ×2 (10:13→21:29)
[2018-10-12] MEDS: SPIRONOLACTONE 25 MG TAB PO SCH (10:13)
[2018-10-12] MEDS: SENNOSIDES 8.6 MG TAB PO SCH (10:13)
[2018-10-12 11:20] LABS: Glucose,Whole Blood 245 mg/dL (75-99)
--- NOTE | 2018-10-12 12:48 | P.PN ---
Subjective Progress Note Date: 10/12/18 This is a pleasant 83-year-old gentleman who follows with Dr. Arredondo in the office, he also follows with Dr. Jessica Silveira at the heart failure center at [facility]. He has known amyloidosis with restrictive cardiomyopathy and severe heart failure, he is on home milrinone therapy, he also has history of stage III chronic kidney disease, hypertension, diabetes, hyperlipidemia, history of nicotine dependence in the past. Patient presents to the hospital on this occasion with symptoms of weakness, tiredness, and increasing shortness of breath. He apparently had a fall at home and was unable to get up, therefore the EMS was called and patient was brought here for further evaluation and treatment. His chest x-ray on arrival did not reveal any definite acute process. His EKG shows a normal sinus rhythm with a first- degree AV block, nonspecific ST-T wave changes. Blood pressure 106/60 with a heart rate in the 60s, 97% on room air. White blood cell count 5.3, hemoglobin 13.5, platelet count 183. Sodium 137, potassium 4.4, BUN 38 and creatinine 1.9. BNP level 5650. Troponins 0.23, 0.26, 0.26. At the time of my examination this morning, patient feels extremely weak, he denies any chest discomfort at present or prior to admission. Does complain of some mild shortness of breath. TSH level on admission 73.1. 10/12/2018 Patient was seen and examined this morning, he states he did not sleep well through the night last night but overall is feeling better today. Blood pressure 116/70 with a heart rate in the 70s, 97% on room air. We will obtain lytes BUN and creatinine today. Objective - Vital Signs Vital signs: Vital Signs Temp 96.1 F L 10/12/18 12:00 Pulse 74 10/12/18 12:00 Resp 16 10/12/18 12:00 BP 116/77 10/12/18 12:00 Pulse Ox 97 10/12/18 12:00 Intake & Output 10/11/18 10/12/18 10/12/18 18:59 06:59 18:59 Intake Total 840 263.645 240 Output Total 200 400 400 Balance 640 -136.355 -160 Weight 78 kg 78.2 kg Intake: Intake, IV Titration 263.645 Amount Heparin Sod,Pork in 0.45% 263.645 NaCl 25,000 unit In 0.45 % NaCl 1 250ml.bag @ 12 UNITS/KG/HR 9.52 mls/hr IV .Q24H [facility] Rx#: [id number] Oral 840 240 Output: Urine 200 400 400 Other: Voiding Method Urinal Toilet - Exam PHYSICAL EXAMINATION: GENERAL: 83-year-old -[place] gentleman in no acute distress at the time of my examination HEENT: Head is atraumatic, normocephalic. Pupils equal, round. Sclera anicteric. Conjunctiva are clear. Mucous membranes of the mouth are moist. Neck is supple. There is elevated jugular venous pressure. No carotid bruit is heard. HEART EXAMINATION: Heart S1, S2 normal. No murmur or gallop heard. CHEST EXAMINATION: Lungs are clear with diminished air entry to the right posterior base. ABDOMEN: Soft, mildly distended . Bowel sounds are heard. No organomegaly noted. EXTREMITIES: 2+ peripheral pulses with no evidence of peripheral edema and no calf tenderness noted. NEUROLOGIC patient is awake, alert and oriented 2 . - Labs CBC & Chem 7: 10/10/18 18:20 10/10/18 18:20 Labs: Abnormal Lab Results - Last 24 Hours (Table) 10/10/18 10/11/18 10/11/18 Range/Units 18:20 16:09 21:31 APTT (22.0-30.0) sec POC Glucose (mg/dL) 173 H 146 H (75-99) mg/dL Hemoglobin A1c 6.8 H (4.0-6.0) % 10/12/18 10/12/18 10/12/18 Range/Units 01:01 01:57 06:02 APTT 90.9 H (22.0-30.0) sec POC Glucose (mg/dL) 132 H 121 H (75-99) mg/dL Hemoglobin A1c (4.0-6.0) % 10/12/18 10/12/18 Range/Units 08:53 11:15 APTT 80.6 H (22.0-30.0) sec POC Glucose (mg/dL) 245 H (75-99) mg/dL Hemoglobin A1c (4.0-6.0) % Assessment and Plan Plan: Assessment and plan #1 progressive weakness with falls #2 acute on chronic diastolic congestive heart failure. Most recent echocardiogram with Doppler study was performed in December of this year which revealed an ejection fraction of 50-55%. Moderate tricuspid regurg moderate pulmonary hypertension. #3 hypothyroidism #4 amyloidosis with restrictive cardiomyopathy, follows with Jessica Silveira that the heart failure center at [facility], on milrinone therapy #5 stage III chronic kidney disease #6 hypertension #7 hyperlipidemia #8 history of nicotine dependence #9 diabetes #10 abnormal troponins, not consistent with acute coronary syndrome with no significant rise and fall pattern, likely secondary to chronic renal failure. Patient Is known to have abnormal troponins. Plan Echocardiogram with Doppler study was performed which revealed an ejection fraction of 40-45%. We will continue amiodarone 200 mg daily, aspirin 81 mg daily, Lasix 40 mg daily by mouth, Aldactone 12-1/2 mg daily. Discontinue IV heparin. DNP note has been reviewed, I agree with a documented findings and plan of care. Patient was seen and examined.
[2018-10-12 14:52] LABS: Calcium 8.9 mg/dL (8.4-10.2); Potassium 4.6 mmol/L (3.5-5.1)
[2018-10-12 16:29] LABS: Glucose,Whole Blood 161 mg/dL (75-99)
[2018-10-12 21:07] LABS: Glucose,Whole Blood 165 mg/dL (75-99)
[2018-10-13 06:08] LABS: Glucose,Whole Blood 103 mg/dL (75-99)
[2018-10-13] MEDS: INSULIN ASPART 100 UNIT/ML 1 ML 10 ML VIAL SQ SCH ×4 (06:11→20:22)
[2018-10-13] MEDS ORDERED: LEVOTHYROXINE 75 MCG TAB PO SCH (06:30)
[2018-10-13 07:42] LABS: Calcium 9.2 mg/dL (8.4-10.2)
--- NOTE | 2018-10-13 08:29 | P.PN ---
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 He is treated for his congestive heart failure at [facility] cardiology clinic and followed [facility] locally. He is on IV milrinone as an outpatient. Patient presented with weakness, falls and shortness of breath. He has been found to be hypothyroid. Patient states he is feeling better. He is still overall weak. Short of breath with exertion. Vital signs this morning show a temperature of 98.1 with a pulse of 78 respirations 16. Blood pressure 129/84 and is 98% saturated on room air. Lungs are diminished at bases but overall clear. Heart tones were regular. Abdomen nontender. Some mild pedal edema. He is aroused. No focal neurological deficits. He is oriented. Laboratory Sodium is 138 with a potassium of 5.0 and a CO2 content of 25. BUN of 40 with creatinine of 1.75 given him a GFR of 41 which is stable. Blood sugar 114. Impressions and plans We will increase his levothyroid up to 50 g and likely hold him at that dose for another week. Discussed with patient likely discharge to extended care facility. Anticipate transfer tomorrow. This will likely give him time to regain further strength and decrease fall risk over the next 1-2 weeks as he continues with therapy.
[2018-10-13] MEDS: ALLOPURINOL 100 MG TAB PO SCH (10:02)
[2018-10-13] MEDS: glipiZIDE 5 MG TAB PO SCH ×2 (10:02→16:59)
[2018-10-13] MEDS: AMIODARONE 200 MG TAB PO SCH (10:03)
[2018-10-13] MEDS: FERROUS SULFATE 325 MG TAB PO SCH ×2 (10:04→20:21)
[2018-10-13] MEDS: ASPIRIN 81 MG PO SCH (10:04)
[2018-10-13] MEDS: FUROSEMIDE 40 MG TAB PO SCH (10:06)
[2018-10-13] MEDS: GABAPENTIN 100 MG CAP PO SCH ×2 (10:06→20:21)
[2018-10-13] MEDS: POTASSIUM CHLORIDE ER 20 MEQ TAB.ER PO SCH ×2 (10:07→20:21)
[2018-10-13] MEDS: SENNOSIDES 8.6 MG TAB PO SCH (10:08)
[2018-10-13] MEDS: SPIRONOLACTONE 25 MG TAB PO SCH (10:45)
[2018-10-13 11:16] LABS: Glucose,Whole Blood 187 mg/dL (75-99)
--- NOTE | 2018-10-13 11:36 | P.PN ---
Subjective Progress Note Date: 10/13/18 This is a pleasant 83-year-old gentleman who follows with Dr. Arredondo in the office, he also follows with Dr. Jessica Silveira at the heart failure center at [facility]. He has known amyloidosis with restrictive cardiomyopathy and severe heart failure, he is on home milrinone therapy, he also has history of stage III chronic kidney disease, hypertension, diabetes, hyperlipidemia, history of nicotine dependence in the past. Patient presents to the hospital on this occasion with symptoms of weakness, tiredness, and increasing shortness of breath. He apparently had a fall at home and was unable to get up, therefore the EMS was called and patient was brought here for further evaluation and treatment. His chest x-ray on arrival did not reveal any definite acute process. His EKG shows a normal sinus rhythm with a first- degree AV block, nonspecific ST-T wave changes. Blood pressure 106/60 with a heart rate in the 60s, 97% on room air. White blood cell count 5.3, hemoglobin 13.5, platelet count 183. Sodium 137, potassium 4.4, BUN 38 and creatinine 1.9. BNP level 5650. Troponins 0.23, 0.26, 0.26. At the time of my examination this morning, patient feels extremely weak, he denies any chest discomfort at present or prior to admission. Does complain of some mild shortness of breath. TSH level on admission 73.1. 10/12/2018 Patient was seen and examined this morning, he states he did not sleep well through the night last night but overall is feeling better today. Blood pressure 116/70 with a heart rate in the 70s, 97% on room air. We will obtain lytes BUN and creatinine today. 10/13/2018 Patient seen and examined this morning, he states he didn't sleep so well through the night last night, got up around 2 AM in the chair for a while. At the time of my examination, he had no overt complaints. He states that his breathing has been stable overall. Arrangements are being made for the patient to go to [facility] for rehab. This is currently being discussed with the patient and his . Blood pressure 120/70 with a heart rate in the 70s, 98% on room air. Sodium 138, potassium 5.0, BUN 40 and creatinine 1.7. Objective - Vital Signs Vital signs: Vital Signs Temp 97.2 F L 10/13/18 08:00 Pulse 76 10/13/18 08:00 Resp 16 10/13/18 08:00 BP 120/74 10/13/18 08:00 Pulse Ox 98 10/13/18 08:00 Intake & Output 10/12/18 10/13/18 10/13/18 18:59 06:59 18:59 Intake Total 720 Output Total 400 400 Balance 320 -400 Weight 86.2 kg 82.8 kg Intake: Oral 720 Output: Urine 400 400 Other: Voiding Method Toilet Toilet # Voids 1 - Exam PHYSICAL EXAMINATION: GENERAL: 83-year-old -[place] gentleman in no acute distress at the time of my examination HEENT: Head is atraumatic, normocephalic. Pupils equal, round. Sclera anicteric. Conjunctiva are clear. Mucous membranes of the mouth are moist. Neck is supple. There is elevated jugular venous pressure. No carotid bruit is heard. HEART EXAMINATION: Heart S1, S2 normal. No murmur or gallop heard. CHEST EXAMINATION: Lungs are clear with diminished air entry to the right posterior base. ABDOMEN: Soft, mildly distended . Bowel sounds are heard. No organomegaly noted. EXTREMITIES: 2+ peripheral pulses with no evidence of peripheral edema and no calf tenderness noted. NEUROLOGIC patient is awake, alert and oriented 2 . - Labs CBC & Chem 7: 10/10/18 18:20 10/13/18 06:50 Labs: Abnormal Lab Results - Last 24 Hours (Table) 10/12/18 10/12/18 10/12/18 Range/Units 13:33 16:19 21:05 BUN 41 H (9-20) mg/dL Creatinine 1.76 H (0.66-1.25) mg/dL Glucose 196 H (74-99) mg/dL POC Glucose (mg/dL) 161 H 165 H (75-99) mg/dL 10/13/18 10/13/18 10/13/18 Range/Units 06:06 06:50 11:13 BUN 40 H (9-20) mg/dL Creatinine 1.75 H (0.66-1.25) mg/dL Glucose 114 H (74-99) mg/dL POC Glucose (mg/dL) 103 H 187 H (75-99) mg/dL Assessment and Plan Plan: Assessment and plan #1 progressive weakness with falls #2 acute on chronic diastolic congestive heart failure. Most recent echocardiogram with Doppler study was performed in December of this year which revealed an ejection fraction of 50-55%. Moderate tricuspid regurg moderate pulmonary hypertension. #3 hypothyroidism #4 amyloidosis with restrictive cardiomyopathy, follows with Jessica Silveira that the heart failure center at [facility], on milrinone therapy #5 stage III chronic kidney disease #6 hypertension #7 hyperlipidemia #8 history of nicotine dependence #9 diabetes #10 abnormal troponins, not consistent with acute coronary syndrome with no significant rise and fall pattern, likely secondary to chronic renal failure. Patient Is known to have abnormal troponins. Plan Echocardiogram with Doppler study was performed which revealed an ejection fraction of 40-45%. We will continue amiodarone 200 mg daily, aspirin 81 mg daily, Lasix 40 mg daily by mouth, Aldactone 12-1/2 mg daily. Milrinone therapy. DNP note has been reviewed, I agree with a documented findings and plan of care. Patient was seen and examined.
[2018-10-13 16:23] LABS: Glucose,Whole Blood 185 mg/dL (75-99)
[2018-10-13] MEDS: MILRINONE-D5W PMX 20 MG in DEXTROSE/WATER 1 100ML.BAG IV SCH ×2 (17:20→20:22)
[2018-10-13 20:26] LABS: Glucose,Whole Blood 79 mg/dL (75-99)
[2018-10-14 06:06] LABS: Glucose,Whole Blood 110 mg/dL (75-99)
[2018-10-14] MEDS: INSULIN ASPART 100 UNIT/ML 1 ML 10 ML VIAL SQ SCH ×2 (06:07→12:25)
[2018-10-14] MEDS: glipiZIDE 5 MG TAB PO SCH (06:08)
[2018-10-14] MEDS ORDERED: LEVOTHYROXINE 50 MCG TAB PO SCH (06:30)
--- NOTE | 2018-10-14 06:34 | DS ---
DISCHARGE SUMMARY Mr. Jacob is an 83-year-old gentleman who does have chronic diastolic and systolic congestive heart failure end stage with the outpatient milrinone pump therapy and follow up with Cardiology locally and Cardiology [facility] at [facility]. The patient was brought to the emergency room because of weakness and falling at home to the point where he could not ambulate, very short of breath and fatigued, increasing 1 to 2 days prior to admission. On presentation, his INR was 1.2. The white count was 5.3 with a hemoglobin 13 and a platelet count of 183. The BUN was 38 with creatinine 1.93, giving him a GFR of 36. Albumin was 3.7. Troponin was _normal and remained low. BNP was elevated at 5650. His TSH also was elevated at 73. His urinalysis appeared clear of infection. EKG revealed sinus rhythm with poor R-wave progression but no acute changes. Chest x-ray did not show acute process. The patient was admitted and consult was obtained from Cardiology. Thyroid replacement therapy was initiated and physical and occupational therapy also were involved, which showed a gradual increase in improvement in his physical endurance with the therapy and initiation of thyroid replacement therapy. He proceeded to improve with strength and endurance that would decrease his fall risk and it appears that family has elected to take the patient home and not to an extended care facility and continue with outpatient home care and physical therapy. He will need continuation of his milrinone drip. He will be continued on levothyroxine 50 mcg daily and is to have repeat TSH performed in approximately 4 to 6 weeks. I will continue his DuoNeb respiratory treatments, also, Zyloprim 200 mg daily, amiodarone 200 mg daily, aspirin 81 mg daily; vitamin D2, 50,000 units once a month; ferrous sulfate 325 one to two a day, Lasix 40 mg daily, Neurontin 100 mg twice a day, Glucotrol 5 mg a.c. twice a day, Zaroxolyn 2.5 daily, potassium chloride 20 mEq 2 tablets twice a day and spironolactone 12.5 daily, Senokot 8.6 mg daily to hold if any diarrhea. Patient's thyroid medication [facility]. Follow up in the office in one week and continued home care and fusion care as he needs to resume his milrinone. FINAL DISCHARGE DIAGNOSES: 1. Acute weakness and falls associated with marked hypothyroidism and acute on chronic systolic and diastolic congestive heart failure on continual IV milrinone treatment associated with amyloidosis and amyloid deposition restrictive cardiomyopathy. 2. Patient also with chronic kidney disease, stage 3. 3. Chronic obstructive pulmonary disease and tobacco use. 4. Type 2 diabetes. 5. Hypertension. 6. Gout. 7. Osteoarthritis. 8. Diabetic neuropathy. 9. Benign prostatic hypertrophy. Diet as tolerated along with activities and follow up with myself and Cardiology. MMTIMOTHYL / IJN: [id number] / ALEX
[2018-10-14 07:35] LABS: Calcium 9.3 mg/dL (8.4-10.2); Potassium 5.2 mmol/L (3.5-5.1)
[2018-10-14] MEDS: POTASSIUM CHLORIDE ER 20 MEQ TAB.ER PO SCH (07:52)
--- NOTE | 2018-10-14 08:23 | P.PN ---
Progress Note - Text The patient's 83-year-old gentleman with end-stage congestive heart failure on IV milrinone. Patient also presented with hypothyroidism with a TSH level LXXIII. Patient has improved with further treatment of his congestive heart failure and thyroid medication. This morning he states he feels good. He denies any pain. No unusual shortness of breath. Vital signs show a temperature of 98.6 with a pulse of 97 respirations 17 and blood pressure 119/77. He was 96% saturated on room air. Lung and heart exam is clear. No unusual edema. No focal neurological changes. Impressions and plans Patient is anticipating discharge to home. Declined extended care facility placement at this time. Home nursing and continue of his infusion therapy. His thyroid medication at 50 g will be sent to his writing pharmacy here in [place]. Follow-up the office next week. Home nursing. Please refer to discharge summary for further orders and recommendations.
[2018-10-14] MEDS: FERROUS SULFATE 325 MG TAB PO SCH (10:38)
[2018-10-14] MEDS: ASPIRIN 81 MG PO SCH (10:38)
[2018-10-14] MEDS: GABAPENTIN 100 MG CAP PO SCH (10:38)
[2018-10-14] MEDS: ALLOPURINOL 100 MG TAB PO SCH (10:38)
[2018-10-14] MEDS: SPIRONOLACTONE 25 MG TAB PO SCH (10:38)
[2018-10-14] MEDS: SENNOSIDES 8.6 MG TAB PO SCH (10:39)
[2018-10-14] MEDS: FUROSEMIDE 40 MG TAB PO SCH (10:39)
[2018-10-14] MEDS: AMIODARONE 200 MG TAB PO SCH (10:39)
[2018-10-14 11:23] LABS: Glucose,Whole Blood 225 mg/dL (75-99)
[2018-10-14 11:55] VITALS: BP 122/80; PULSE 76; RESP 16; TEMP 98.2
--- NOTE | 2018-10-14 16:19 | P.PN ---
Progress Note - Text Progress Note Date: 10/14/18 This is a pleasant 83-year-old gentleman with a past medical history significant for chronic diastolic congestive heart failure with recent echo showing an EF around 50-55% as well as chronic kidney disease, who was admitted to the hospital with acute exacerbation of congestive heart failure secondary to diastole dysfunction. The patient was seen today, October 142018, and he was feeling better indeterminable shortness of breath. No symptoms of chest pain or chest discomfort. From the cardiac vascular standpoint of view, the patient can be discharged home.
[2018-10-24] MEDS ORDERED: ERGOCALCIFEROL 50,000 UNIT CAP PO SCH (09:00)
== END 2018-10-14 14:02 | disposition home health service (06) | DRG 291 ==
LOC: EC 18:02 → 3SCARD 21:30
PROVIDERS: ADMIT Internal Medicine; ATTEND Internal Medicine
DX: I13.0 Hypertensive heart and chronic kidney disease with heart failure and stage 1 through stage 4 chronic kidney disease, or unspecified chronic kidney disease (principal); I50.43 Acute on chronic combined systolic (congestive) and diastolic (congestive) heart failure; E85.4 Organ-limited amyloidosis; I50.84 End stage heart failure; E11.22 Type 2 diabetes mellitus with diabetic chronic kidney disease; E11.40 Type 2 diabetes mellitus with diabetic neuropathy, unspecified; I27.20 Pulmonary hypertension, unspecified; J44.9 Chronic obstructive pulmonary disease, unspecified; I07.1 Rheumatic tricuspid insufficiency; I42.5 Other restrictive cardiomyopathy; I43 Cardiomyopathy in diseases classified elsewhere; N18.3 Chronic kidney disease, stage 3 (moderate); E78.5 Hyperlipidemia, unspecified; M10.9 Gout, unspecified; E03.9 Hypothyroidism, unspecified; M19.90 Unspecified osteoarthritis, unspecified site; N40.0 Benign prostatic hyperplasia without lower urinary tract symptoms; R77.9 Abnormality of plasma protein, unspecified; I44.0 Atrioventricular block, first degree; Z79.82 Long term (current) use of aspirin; Z79.899 Other long term (current) drug therapy; Z79.4 Long term (current) use of insulin; Z87.891 Personal history of nicotine dependence; Z82.49 Family history of ischemic heart disease and other diseases of the circulatory system; Z83.3 Family history of diabetes mellitus; W19.XXXA Unspecified fall, initial encounter; Y92.009 Unspecified place in unspecified non-institutional (private) residence as the place of occurrence of the external cause
CPT/HCPCS: 36415; 71046; 80048; 80053; 81003; 82550; 82553; 83036; 83735; 83880; 84100; 84443; 84484; 85025; 85610; 85730; 87502; 93005; 93306; 94760; 96365; 96376; 99285